=== PATIENT | female | born 1970 | race Caucasian/White ===

== ENCOUNTER 2017-11-30 13:27 | Observation (INO) | payer BC ==
--- NOTE | 2017-11-30 14:06 | ERPHSYRPT ---
- History of Present Illness Time Seen by Provider: 11/30/17 14:00 Source: patient Exam Limitations: no limitations Patient Subjective Stated Complaint: Pt states "I have kidney stones, but I have not felt well for awhile now. This morning my urine was brown, I am swelling, I am weak and I have been having a hard time breathing." Triage Nursing Assessment: Pt alert and oriented X 3, skin pwd PT ambulates with an upright steady gait, pt on her cell phone when I went to get her and she texted the whole time walking to the room. PT has pitting edema noted bilat to lower extremeties. Physician History: Pt started c/o gen. weakness, swelling, numbness of the fingers and legs few weeks ago. She noticed the brownish discoloration of her urine this morning, but denies abdominal pain, only c/o bilateral low back pain, and muscle cramps. She denies fever, vomiting, diarrhea, chest pain or cough, severe SOB, no diaphoresis or any distress, she ambulates. She has not been taking her medications recently. Timing/Duration: week(s) (3) Severity: mild Modifying Factors: Improves With: nothing Associated Symptoms: nausea, weakness (generalized) Allergies/Adverse Reactions: No Known Drug Allergies Allergy (Unverified 11/30/17 13:42) Home Medications: Meth/Meblue/Sod Phos/Psal/Hyos [Uribel Capsule] 118 mg PO DAILY 11/30/17 [ History] Hx Tetanus, Diphtheria Vaccination/Date Given: No Hx Influenza Vaccination/Date Given: No Hx Pneumococcal Vaccination/Date Given: No Immunizations Up to Date: Yes - Review of Systems Constitutional: Chills, Weakness (generalized) Abdominal/Gastrointestinal: Nausea Genitourinary Symptoms: Frequency, Hematuria Musculoskeletal: Other (muscle cramps) All Other Systems: Reviewed and Negative - Past Medical History Pertinent Past Medical History: Yes Neurological History: Migraines ENT History: No Pertinent History Cardiac History: No Pertinent History Respiratory History: Sleep Apnea Endocrine Medical History: No Pertinent History GI Medical History: GERD History: Other Other Medical History: kidney stones - Past Surgical History Past Surgical History: Yes Other Surgical History: back surgery - Social History Smoking Status: Never smoker Exposure to second hand smoke: Yes Drug Use: none Patient Lives Alone: Yes - Female History Hx Last Menstrual Period: tubal X 2 Hx Now: No - Nursing Vital Signs Nursing Vital Signs: Initial Vital Signs Temperature 97.3 F 11/30/17 13:32 Pulse Rate 76 11/30/17 13:32 Respiratory Rate 18 11/30/17 13:32 Blood Pressure 168/105 11/30/17 13:32 O2 Sat by Pulse Oximetry 95 11/30/17 13:32 Pain Scale Pain Intensity 8 - Physical Exam General Appearance: no apparent distress Eye Exam: PERRL/EOMI, eyes nml inspection Ears, Nose, Throat Exam: normal ENT inspection, pharynx normal Neck Exam: normal inspection, non-tender, supple, No carotid bruit, No JVD, No lymphadenopathy Respiratory Exam: normal breath sounds, lungs clear, airway intact, No chest tenderness Cardiovascular Exam: regular rate/rhythm, normal heart sounds, normal peripheral pulses, edema, No murmur Gastrointestinal/Abdomen Exam: soft, normal bowel sounds, No tenderness, No distention, No mass, No guarding, No rebound Back Exam: normal inspection, CVA tenderness (bilateral) Extremity Exam: normal inspection, pedal edema, No calf tenderness, No kings's sign Neurologic Exam: alert, oriented x 3, normal mood/affect Skin Exam: normal color, warm, dry, No rash Lymphatic Exam: No adenopathy SpO2 Interpretation: normal SpO2: 95 Oxygen Delivery: Room Air - Course Nursing assessment & vital signs reviewed: Yes EKG Interpreted by Me: RATE (49/min), Sinus Hilario, NORMAL AXIS, Non-specific ST Changes, Other (low voltage) - Radiology Exams Chest X-ray Interpretation: Interpreted by me, Negative - CT Exams Abdomen/Pelvis CT Interpretation: Tele-radiologist Report, Other (bilateral nephrolithiasis, no o\\bstruction) Ordered Tests: Active Orders 24 hr Category Date Time Status EKG-ER Only STAT Care 11/30/17 14:00 Active IV Insertion STAT Care 11/30/17 13:57 Active ABDOMEN AND PELVIS W/0 CONTRAS [CT] Stat Exams 11/30/17 15:27 Taken CHEST 2 VIEWS (PA AND LAT) Stat Exams 11/30/17 13:58 Taken CBC W DIFF Stat Lab 11/30/17 14:35 Completed CK-Creatinine Phosphokinase Stat Lab 11/30/17 14:35 Completed CMP Stat Lab 11/30/17 14:35 Completed CULTURE,URINE Stat Lab 11/30/17 14:35 Received Lactic Acid Stat Lab 11/30/17 14:38 Completed MAGNESIUM Stat Lab 11/30/17 14:35 Completed NT PRO BNP Stat Lab 11/30/17 14:35 Completed PROTIME WITH INR Stat Lab 11/30/17 14:35 Completed TROPONIN Q3H Lab 11/30/17 14:35 Completed TROPONIN Q3H Lab 11/30/17 17:00 Ordered TROPONIN Q3H Lab 11/30/17 20:00 Ordered TROPONIN Q3H Lab 11/30/17 23:00 Ordered TROPONIN Q3H Lab 12/01/17 02:00 Ordered TSH, 3RD Generation Routine Lab 11/30/17 14:35 Completed UA W/ MICROSCOPIC Stat Lab 11/30/17 14:35 Completed Urine Triage Profile Stat Lab 11/30/17 14:35 Completed Medication Summary Generic Name Dose Route Start Last Admin Trade Name Freq PRN Reason Stop Dose Admin Sodium Chloride 1,000 mls @ 100 mls/hr 11/30/17 16:45 11/30/17 16:50 Sodium Chloride 0.9% 1000 Ml IV 12/30/17 16:44 100 mls/hr .Q10H NAVID Administration Ceftriaxone Sodium/Dextrose 1 g in 50 mls @ 100 mls/hr 11/30/17 16:41 16:51 Rocephin 1 Gm-D5w 50 Ml Bag IV 11/30/17 17:10 100 mls/hr STAT STA 100 mls/hr Administration Discontinued Medications Generic Name Dose Route Start Last Admin Trade Name Freq PRN Reason Stop Dose Admin Ceftriaxone Sodium/Dextrose Confirm 11/30/17 16:47 Rocephin 1 Gm-D5w 50 Ml Bag Administered 11/30/17 16:48 Dose 1 g in 50 mls @ ud IV .STK-MED ONE Lab/Rad Data: Laboratory Result Diagrams 11/30/17 14:35 11/30/17 14:35 Laboratory Results 11/30/17 11/30/17 11/30/17 Range/Units 14:38 14:35 14:35 WBC (4.0-10.5) K/mm3 RBC (4.1-5.4) M/mm3 Hgb (12.0-16.0) gm/dl Hct (35-47) % MCV (78-100) fl MCH (26-32) pg MCHC (32-36) g/dl RDW (11.5-14.0) % Plt Count (150-450) K/mm3 MPV (6-9.5) fl Gran % (36.0-66.0) % Eos # (Auto) (0-0.5) Absolute Lymphs (auto) (1.0-4.6) Absolute Monos (auto) (0.0-1.3) Lymphocytes % (24.0-44.0) % Monocytes % (0.0-12.0) % Eosinophils % (0.00-5.0) % Basophils % (0.0-0.4) % Absolute Granulocytes (1.4-6.9) Basophils # (0-0.4) PT (9.95-12.35) SECONDS INR (0.8-3.0) Sodium (137-145) mmol/L Potassium (3.5-5.1) mmol/L Chloride (98-107) mmol/L Carbon Dioxide (22-30) mmol/L Anion Gap (5-15) MEQ/L BUN (7-17) mg/dL Creatinine (0.52-1.04) mg/dL Estimated GFR ML/MIN Glucose (74-106) mg/dL Lactic Acid 1.3 (0.4-2.0) Calcium (8.4-10.2) mg/dL Magnesium (1.6-2.3) mg/dL Total Bilirubin (0.2-1.3) mg/dL AST (14-36) U/L ALT (0-35) U/L Alkaline Phosphatase (38-126) U/L Creatine Kinase (30-135) U/L Troponin I (0.000-0.034) ng/mL NT-Pro-B Natriuret Pep (0-450) pg/mL Serum Total Protein (6.3-8.2) g/dL Albumin (3.5-5.0) g/dL TSH 3rd Generation (0.47-4.68) mIU/L Ur Collection Type CCMS Urine Color RED (YELLOW) Urine Appearance CLOUDY (CLEAR) Urine pH 6.0 (5-6) Ur Specific Sagle 1.020 (1.005-1.025) Urine Protein 100 (Negative) Urine Ketones NEGATIVE (NEGATIVE) Urine Blood 250 (0-5) Carlos/ul Urine Nitrite NEGATIVE (NEGATIVE) Urine Bilirubin NEGATIVE (NEGATIVE) Urine Urobilinogen NORMAL (0-1) mg/dL Ur Leukocyte Esterase 2+ (NEGATIVE) Urine Microscopic RBC >100 (0-2) /HPF Urine Microscopic WBC 50-100 (0-5) /HPF Ur Epithelial Cells MODERATE (FEW) /HPF Urine Bacteria MANY (NEGATIVE) /HPF Urine Culture Reflexed YES (NO) Urine Glucose NEGATIVE (NEGATIVE) mg/dL Urine Opiates Level NEGATIVE (NEGATIVE) Ur Methadone NEGATIVE (NEGATIVE) Urine Barbiturates NEGATIVE (NEGATIVE) Ur Phencyclidine (PCP) NEGATIVE (NEGATIVE) Urine Amphetamine NEGATIVE (NEGATIVE) U Benzodiazepine Level NEGATIVE (NEGATIVE) Urine Cocaine NEGATIVE (NEGATIVE) Urine Marijuana (THC) POSITIVE (NEGATIVE) Specimen Received 1405 11/30/17 11/30/17 11/30/17 11/30/17 Range/Units 14:35 14:35 14:35 WBC (4.0-10.5) K/mm3 RBC (4.1-5.4) M/mm3 Hgb (12.0-16.0) gm/dl Hct (35-47) % MCV (78-100) fl MCH (26-32) pg MCHC (32-36) g/dl RDW (11.5-14.0) % Plt Count (150-450) K/mm3 MPV (6-9.5) fl Gran % (36.0-66.0) % Eos # (Auto) (0-0.5) Absolute Lymphs (auto) (1.0-4.6) Absolute Monos (auto) (0.0-1.3) Lymphocytes % (24.0-44.0) % Monocytes % (0.0-12.0) % Eosinophils % (0.00-5.0) % Basophils % (0.0-0.4) % Absolute Granulocytes (1.4-6.9) Basophils # (0-0.4) PT 10.8 (9.95-12.35) SECONDS INR 0.93 (0.8-3.0) Sodium 139 (137-145) mmol/L Potassium 3.7 (3.5-5.1) mmol/L Chloride 98 (98-107) mmol/L Carbon Dioxide 29 (22-30) mmol/L Anion Gap 15.0 (5-15) MEQ/L BUN 23 H (7-17) mg/dL Creatinine 1.44 H (0.52-1.04) mg/dL Estimated GFR 41.3 ML/MIN Glucose 108 H (74-106) mg/dL Lactic Acid (0.4-2.0) Calcium 9.8 (8.4-10.2) mg/dL Magnesium 2.0 (1.6-2.3) mg/dL Total Bilirubin 0.60 (0.2-1.3) mg/dL AST 62 H (14-36) U/L ALT 45 H (0-35) U/L Alkaline Phosphatase 98 (38-126) U/L Creatine Kinase 656 H (30-135) U/L Troponin I < 0.012 (0.000-0.034) ng/mL NT-Pro-B Natriuret Pep 18.0 (0-450) pg/mL Serum Total Protein 7.8 (6.3-8.2) g/dL Albumin 4.7 (3.5-5.0) g/dL TSH 3rd Generation 304.000 H (0.47-4.68) mIU/L Ur Collection Type Urine Color (YELLOW) Urine Appearance (CLEAR) Urine pH (5-6) Ur Specific Sagle (1.005-1.025) Urine Protein (Negative) Urine Ketones (NEGATIVE) Urine Blood (0-5) Carlos/ul Urine Nitrite (NEGATIVE) Urine Bilirubin (NEGATIVE) Urine Urobilinogen (0-1) mg/dL Ur Leukocyte Esterase (NEGATIVE) Urine Microscopic RBC (0-2) /HPF Urine Microscopic WBC (0-5) /HPF Ur Epithelial Cells (FEW) /HPF Urine Bacteria (NEGATIVE) /HPF Urine Culture Reflexed (NO) Urine Glucose (NEGATIVE) mg/dL Urine Opiates Level (NEGATIVE) Ur Methadone (NEGATIVE) Urine Barbiturates (NEGATIVE) Ur Phencyclidine (PCP) (NEGATIVE) Urine Amphetamine (NEGATIVE) U Benzodiazepine Level (NEGATIVE) Urine Cocaine (NEGATIVE) Urine Marijuana (THC) (NEGATIVE) Specimen Received 11/30/17 Range/Units 14:35 WBC 8.1 (4.0-10.5) K/mm3 RBC 4.27 (4.1-5.4) M/mm3 Hgb 13.6 (12.0-16.0) gm/dl Hct 40.4 (35-47) % MCV 94.6 (78-100) fl MCH 31.9 (26-32) pg MCHC 33.7 (32-36) g/dl RDW 15.1 H (11.5-14.0) % Plt Count 281 (150-450) K/mm3 MPV 10.7 H (6-9.5) fl Gran % 66.6 H (36.0-66.0) % Eos # (Auto) 0.22 (0-0.5) Absolute Lymphs (auto) 1.94 (1.0-4.6) Absolute Monos (auto) 0.51 (0.0-1.3) Lymphocytes % 24.0 (24.0-44.0) % Monocytes % 6.3 (0.0-12.0) % Eosinophils % 2.7 (0.00-5.0) % Basophils % 0.4 (0.0-0.4) % Absolute Granulocytes 5.38 (1.4-6.9) Basophils # 0.03 (0-0.4) PT (9.95-12.35) SECONDS INR (0.8-3.0) Sodium (137-145) mmol/L Potassium (3.5-5.1) mmol/L Chloride (98-107) mmol/L Carbon Dioxide (22-30) mmol/L Anion Gap (5-15) MEQ/L BUN (7-17) mg/dL Creatinine (0.52-1.04) mg/dL Estimated GFR ML/MIN Glucose (74-106) mg/dL Lactic Acid (0.4-2.0) Calcium (8.4-10.2) mg/dL Magnesium (1.6-2.3) mg/dL Total Bilirubin (0.2-1.3) mg/dL AST (14-36) U/L ALT (0-35) U/L Alkaline Phosphatase (38-126) U/L Creatine Kinase (30-135) U/L Troponin I (0.000-0.034) ng/mL NT-Pro-B Natriuret Pep (0-450) pg/mL Serum Total Protein (6.3-8.2) g/dL Albumin (3.5-5.0) g/dL TSH 3rd Generation (0.47-4.68) mIU/L Ur Collection Type Urine Color (YELLOW) Urine Appearance (CLEAR) Urine pH (5-6) Ur Specific Sagle (1.005-1.025) Urine Protein (Negative) Urine Ketones (NEGATIVE) Urine Blood (0-5) Carlos/ul Urine Nitrite (NEGATIVE) Urine Bilirubin (NEGATIVE) Urine Urobilinogen (0-1) mg/dL Ur Leukocyte Esterase (NEGATIVE) Urine Microscopic RBC (0-2) /HPF Urine Microscopic WBC (0-5) /HPF Ur Epithelial Cells (FEW) /HPF Urine Bacteria (NEGATIVE) /HPF Urine Culture Reflexed (NO) Urine Glucose (NEGATIVE) mg/dL Urine Opiates Level (NEGATIVE) Ur Methadone (NEGATIVE) Urine Barbiturates (NEGATIVE) Ur Phencyclidine (PCP) (NEGATIVE) Urine Amphetamine (NEGATIVE) U Benzodiazepine Level (NEGATIVE) Urine Cocaine (NEGATIVE) Urine Marijuana (THC) (NEGATIVE) Specimen Received - Progress Progress: improved Progress Note: 11/30/17 17:02 Pt was started on iv saline, Rocephine, we called Dr Moody, covering Dr Jones, discussed our results and this patient's current condition, he agreed to admit her to Medicine for further care, I informed patient, she agreed. Discussed with .: Diamond Will see patient in: hospital (observation) Counseled pt/family regarding: lab results, diagnosis, need for follow-up, rad results - Departure Time of Disposition: 17:03 Departure Disposition: Observation Clinical Impression: Dehydration UTI (urinary tract infection) Qualifiers: Urinary tract infection type: site unspecified Hematuria presence: with hematuria Qualified Code(s): N39.0 - Urinary tract infection, site not specified ; R31.9 - Hematuria, unspecified Hypothyroidism Qualifiers: Hypothyroidism type: other Qualified Code(s): E03.8 - Other specified hypothyroidism Condition: Stable Critical Care Time: No Referrals: LORETTA JONES [Primary Care Provider] -
[2017-11-30 14:51] LABS: BASOPHIL % 0.4 % (0.0-0.4); Basophil (Absolute #) 0.03 (0-0.4); Eosinophil % 2.7 % (0.00-5.0); Eosinophil (Absolute #) 0.22 (0-0.5); Granulocyte Absolute (ANC) 5.38 (1.4-6.9); Granulocytes % 66.6 % (36.0-66.0); Hematocrit 40.4 % (35-47); Hemoglobin 13.6 gm/dl (12.0-16.0); INR 0.93 (0.8-3.0); Lymphocyte (Absolute #) 1.94 (1.0-4.6); Mean Cell Volume 94.6 fl (78-100); Mean Corpuscular Hemoglobin 31.9 pg (26-32); Mean Corpuscular Hgb Concent. 33.7 g/dl (32-36); Mean Platelet Volume 10.7 fl (6-9.5); Monocyte (Absolute #) 0.51 (0.0-1.3); Monocytes % 6.3 % (0.0-12.0); Platelet Count 281 K/mm3 (150-450); Red Blood Count 4.27 M/mm3 (4.1-5.4); Red Cell Distribution Width 15.1 % (11.5-14.0); White Blood Count 8.1 K/mm3 (4.0-10.5)
[2017-11-30 14:52] LABS: Appearance CLOUDY (CLEAR); Bilirubin NEGATIVE (NEGATIVE); Blood 250 Ery/ul (0-5); Glucose NEGATIVE (NEGATIVE); Ketones NEGATIVE (NEGATIVE); Leukocyte Esterase 2+ (NEGATIVE); Nitrite NEGATIVE (NEGATIVE); Protein,Urine Dip 100 (Negative); Urobilinogen NORMAL mg/dL (0-1)
[2017-11-30 14:56] LABS: ALBUMIN 4.7 g/dL (3.5-5.0); BILIRUBIN,TOTAL 0.6 mg/dL (0.2-1.3); Calcium 9.8 mg/dL (8.4-10.2); Creatinine 1 1.44 mg/dL (0.52-1.04); Potassium 3.7 mmol/L (3.5-5.1); Total Protein 7.8 g/dL (6.3-8.2)
[2017-11-30 15:29] LABS: Amphetamine,Urine NEGATIVE (NEGATIVE); Barbiturate,Urine NEGATIVE (NEGATIVE); Benzodiazepine,Urine NEGATIVE (NEGATIVE); Cocaine,Urine NEGATIVE (NEGATIVE); Methadone,Urine NEGATIVE (NEGATIVE); Opiate,Urine NEGATIVE (NEGATIVE); PCP,Urine NEGATIVE (NEGATIVE); THC,Urine POSITIVE (NEGATIVE)
[2017-11-30 15:40] LABS: TROPONIN < 0.012 ng/mL (0.000-0.034)
[2017-11-30 15:51] LABS: WBC 50-100 /HPF (0-5)
[2017-11-30 15:52] LABS: Bacteria MANY /HPF (NEGATIVE); Epithelial Cells MODERATE /HPF (FEW); RBC >100 /HPF (0-2)
[2017-11-30] MEDS ORDERED: ROCEPHIN 1 Gm-D5w 50 ml Bag** 1 G/50 ML IVPB IV STA (16:41)
[2017-11-30] MEDS ORDERED: ROCEPHIN 1 Gm-D5w 50 ml Bag** 1 G/50 ML IVPB IV ONE (16:47)
[2017-11-30] MEDS: Sodium Chloride 0.9% 1000 ML 1,000 ML IV SCH (16:50)
[2017-11-30] MEDS ORDERED: Zofran 4 MG/2 ML VIAL IV PRN (17:06)
[2017-11-30] MEDS ORDERED: DUONEB 0.5-3 MG/3 ml Neb IH PRN (17:06)
[2017-11-30] MEDS ORDERED: NovoLOG Insulin SQ PRN (17:06)
[2017-11-30] MEDS ORDERED: ULTRAM 50 MG PO ONE (17:08)
[2017-11-30] MEDS ORDERED: Sodium Chloride 0.9% 1000 ML 1,000 ML IV SCH (17:15)
[2017-11-30] MEDS ORDERED: ULTRAM 50 MG ONE (17:36)
--- NOTE | 2017-11-30 21:49 | XRAY ---
Indication: Bilateral flank pain and hematuria. Multiple contiguous axial images obtained through the abdomen and pelvis without contrast as ordered. Comparison: January 04, 2017. Lung bases demonstrate minimal bibasilar dependent atelectasis. No infiltrate or effusion. Heart is not enlarged. Noncontrasted stomach and bowel loops appear nonobstructed. Normal appendix. No free fluid/air. There is now mild diffuse scattered colonic fecal debris throughout. Again descending and sigmoid diverticulosis without diverticulitis. Again diffuse fatty liver, nonobstructing bilateral nephrocalcinosis, and calcified splenic granulomas. Remaining liver, gallbladder, pancreas, spleen, adrenal glands, kidneys, ureters, bladder, uterus, and aorta appear unremarkable for noncontrast exam. Osseous structures intact. Impression: 1. New fecal stasis without obstruction. Stable colonic diverticulosis. 2. Stable fatty liver and nonobstructing bilateral nephrocalcinosis. Comment: Preliminary interpretation was made by C. No critical discrepancy. CTDI 23.68
--- NOTE | 2017-11-30 21:51 | XRAY ---
Indication: Short of breath. Comparison: None PA/lateral chest clear. Heart and mediastinal structures within normal limits. Bony thorax intact. Impression: Nonacute chest.
[2017-11-30] MEDS: NORCO 5/325 MG PO PRN (22:13)
[2017-11-30] MEDS: Neurontin 100 MG PO SCH (22:14)
[2017-11-30] MEDS ORDERED: SYNTHROID 50 MCG ONE (22:19)
[2017-12-01] MEDS: Sodium Chloride 0.9% 1000 ML 1,000 ML IV SCH (02:05)
[2017-12-01] MEDS: NORCO 5/325 MG PO PRN (04:10)
[2017-12-01 04:19] LABS: ANION GAP 11.5 MEQ/L (5-15); Calcium 9.3 mg/dL (8.4-10.2); Creatinine 1 1.18 mg/dL (0.52-1.04); Potassium 3.3 mmol/L (3.5-5.1)
[2017-12-01 04:35] LABS: BASOPHIL % 0.3 % (0.0-0.4); Basophil (Absolute #) 0.03 (0-0.4); Eosinophil % 3.2 % (0.00-5.0); Eosinophil (Absolute #) 0.28 (0-0.5); Granulocyte Absolute (ANC) 5.62 (1.4-6.9); Granulocytes % 63.9 % (36.0-66.0); Hematocrit 40.2 % (35-47); Hemoglobin 13.2 gm/dl (12.0-16.0); Lymphocytes % 27.3 % (24.0-44.0); Mean Cell Volume 95.9 fl (78-100); Mean Corpuscular Hemoglobin 31.5 pg (26-32); Mean Corpuscular Hgb Concent. 32.8 g/dl (32-36); Mean Platelet Volume 11.2 fl (6-9.5); Monocyte (Absolute #) 0.47 (0.0-1.3); Monocytes % 5.3 % (0.0-12.0); Platelet Count 170 K/mm3 (150-450); Red Blood Count 4.19 M/mm3 (4.1-5.4); Red Cell Distribution Width 15.2 % (11.5-14.0); White Blood Count 8.8 K/mm3 (4.0-10.5)
[2017-12-01 07:58] VITALS: BP 144/73; PULSE 61; O2SAT 97
--- NOTE | 2017-12-01 09:05 | PCM.DCORD ---
- Discharge Discharge Date: 12/01/17 Disposition: Home, Self-Care Condition: Stable Prescriptions: New Cephalexin Mh 500 mg [Keflex 500 mg] 500 mg PO TID #30 capsule Levothyroxine Sodium 75 Mcg [Synthroid 75 Mcg] 75 mcg PO DAILY #30 tablet Continue Meth/Meblue/Sod Phos/Psal/Hyos [Uribel Capsule] 118 mg PO DAILY Follow up with: LORETTA JONES [Primary Care Provider] - 1 Week
--- NOTE | 2017-12-01 09:10 | PCM.HP ---
History of Present Illness - Chief Complaint Chief Complaint: UTI Date: 12/01/17 History of Present Illness: is a 47 year old female. with history of hypothyroidism and recurrent kidney stones. She had UTI 3 months ago and was treated at urgent [place]. She was out of state again on vacation and driving home 2 days ago and noticed increased pain with urination and dark colored urine. 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 She had also stopped her thyroid medication about 2 months ago after stopping all her other medications as well. She was initially feeling ok but has now started to have increased swelling over the last several weeks. She had been on thyroid medication since having children more then 20 years ago. - Review of Systems Constitutional: Fatigue, No Fever, No Chills Eyes: No Symptoms Ears, Nose, & Throat: No Symptoms Respiratory: Short Of Breath, No Cough Cardiac: Edema, No Chest Pain, No Syncope Abdominal/Gastrointestinal: No Abdominal Pain, No Nausea, No Vomiting, No Diarrhea Genitourinary Symptoms: Dysuria, Frequency Musculoskeletal: No Back Pain, No Neck Pain Skin: No Rash Neurological: No Dizziness, No Focal Weakness, No Sensory Changes Psychological: No Symptoms Endocrine: No Symptoms Hematologic/Lymphatic: No Symptoms Immunological/Allergic: No Symptoms Medications & Allergies Home Medications: Home Medication List Meth/Meblue/Sod Phos/Psal/Hyos [Uribel Capsule] 118 mg PO DAILY 11/30/17 [ History Confirmed 11/30/17] Cephalexin Mh 500 mg [Keflex 500 mg] 500 mg PO TID #30 capsule 12/01/17 [Rx] Levothyroxine Sodium 75 Mcg [Synthroid 75 Mcg] 75 mcg PO DAILY #30 tablet 12/01/17 [Rx] Allergies/Adverse Reactions: Allergies Allergy/AdvReac Type Severity Reaction Status Date / Time No Known Drug Allergies Allergy Unverified 11/30/17 13:42 - Past Medical History Past Medical History: Yes Neurological History: Migraines ENT History: No Pertinent History Cardiac History: No Pertinent History Respiratory History: Sleep Apnea Endocrine Medical History: No Pertinent History GI Medical History: GERD History: Other Pyscho-Social History: Depression Comment: kidney stones,gout - Female History Hx Last Menstrual Period: tubal X 2 Are you now?: No - Past Surgical History Past Surgical History: Yes Female Surgical History: Tubal Ligation Other Surgical History: back surgery, kidney stone removal x 3, oopharectomy - Social History Smoking Status: Never smoker Exposure to second hand smoke: Yes Alcohol: None Drug Use: none - Physical Exam Vital Signs: Vital Signs - 24 hr Temp Pulse Resp BP Pulse Ox 12/01/17 07:58 97.6 F 61 18 144/73 97 12/01/17 04:00 98.0 F 67 20 137/75 95 11/30/17 23:42 97.9 F 56 L 16 142/71 95 11/30/17 19:56 58 L 18 96 11/30/17 19:47 97.3 F 56 L 18 131/102 96 11/30/17 18:02 97.3 F 56 L 18 131/102 96 11/30/17 18:00 97.8 F 64 18 196/97 99 11/30/17 17:53 97.8 F 64 18 196/97 99 11/30/17 17:30 56 L 18 96 11/30/17 17:06 95 11/30/17 16:56 58 L 16 131/102 98 11/30/17 15:50 66 20 133/99 96 11/30/17 14:54 61 16 121/83 97 11/30/17 13:32 97.3 F 76 18 168/105 95 General Appearance: no apparent distress, alert, obese Neurologic Exam: alert, oriented x 3, cooperative, normal mood/affect, nml cerebellar function, sensation nml, No motor deficits Eye Exam: PERRL/EOMI, eyes nml inspection Ears, Nose, Throat Exam: normal ENT inspection, pharynx normal, moist mucous membranes Neck Exam: normal inspection, non-tender, supple, full range of motion Respiratory Exam: normal breath sounds, lungs clear, No respiratory distress Cardiovascular Exam: regular rate/rhythm, normal heart sounds, normal peripheral pulses Gastrointestinal/Abdomen Exam: soft, normal bowel sounds, No tenderness, No mass Back Exam: normal inspection, normal range of motion, other (paraspinal muscle tenderness without specific flank tenderness), No CVA tenderness, No vertebral tenderness Extremity Exam: normal inspection, normal range of motion, pelvis stable Skin Exam: normal color, warm, dry, No rash Lymphatic Exam: No adenopathy Results - Labs Lab/Micro Results: Accuchecks Date 12/01/17 Date 11/30/17 Time 07:30 Time 21:30 Accucheck Value: 136 Accucheck Value: 159 Lab Results-Last 24 Hours 11/30/17 11/30/17 11/30/17 Range/Units 14:35 14:35 14:35 WBC 8.1 (4.0-10.5) K/mm3 RBC 4.27 (4.1-5.4) M/mm3 Hgb 13.6 (12.0-16.0) gm/dl Hct 40.4 (35-47) % MCV 94.6 (78-100) fl MCH 31.9 (26-32) pg MCHC 33.7 (32-36) g/dl RDW 15.1 H (11.5-14.0) % Plt Count 281 (150-450) K/mm3 MPV 10.7 H (6-9.5) fl Gran % 66.6 H (36.0-66.0) % Eos # (Auto) 0.22 (0-0.5) Absolute Lymphs (auto) 1.94 (1.0-4.6) Absolute Monos (auto) 0.51 (0.0-1.3) Lymphocytes % 24.0 (24.0-44.0) % Monocytes % 6.3 (0.0-12.0) % Eosinophils % 2.7 (0.00-5.0) % Basophils % 0.4 (0.0-0.4) % Absolute Granulocytes 5.38 (1.4-6.9) Basophils # 0.03 (0-0.4) PT 10.8 (9.95-12.35) SECONDS INR 0.93 (0.8-3.0) Sodium 139 (137-145) mmol/L Potassium 3.7 (3.5-5.1) mmol/L Chloride 98 (98-107) mmol/L Carbon Dioxide 29 (22-30) mmol/L Anion Gap 15.0 (5-15) MEQ/L BUN 23 H (7-17) mg/dL Creatinine 1.44 H (0.52-1.04) mg/dL Estimated GFR 41.3 ML/MIN Glucose 108 H (74-106) mg/dL Lactic Acid (0.4-2.0) Calcium 9.8 (8.4-10.2) mg/dL Magnesium 2.0 (1.6-2.3) mg/dL Total Bilirubin 0.60 (0.2-1.3) mg/dL AST 62 H (14-36) U/L ALT 45 H (0-35) U/L Alkaline Phosphatase 98 (38-126) U/L Creatine Kinase 656 H (30-135) U/L Troponin I (0.000-0.034) ng/mL NT-Pro-B Natriuret Pep 18.0 (0-450) pg/mL Serum Total Protein 7.8 (6.3-8.2) g/dL Albumin 4.7 (3.5-5.0) g/dL TSH 3rd Generation (0.47-4.68) mIU/L Ur Collection Type Urine Color (YELLOW) Urine Appearance (CLEAR) Urine pH (5-6) Ur Specific Gerry (1.005-1.025) Urine Protein (Negative) Urine Ketones (NEGATIVE) Urine Blood (0-5) Carlos/ul Urine Nitrite (NEGATIVE) Urine Bilirubin (NEGATIVE) Urine Urobilinogen (0-1) mg/dL Ur Leukocyte Esterase (NEGATIVE) Urine Microscopic RBC (0-2) /HPF Urine Microscopic WBC (0-5) /HPF Ur Epithelial Cells (FEW) /HPF Urine Bacteria (NEGATIVE) /HPF Urine Culture Reflexed (NO) Urine Glucose (NEGATIVE) mg/dL Urine Opiates Level (NEGATIVE) Ur Methadone (NEGATIVE) Urine Barbiturates (NEGATIVE) Ur Phencyclidine (PCP) (NEGATIVE) Urine Amphetamine (NEGATIVE) U Benzodiazepine Level (NEGATIVE) Urine Cocaine (NEGATIVE) Urine Marijuana (THC) (NEGATIVE) Specimen Received 11/30/17 11/30/17 11/30/17 Range/Units 14:35 14:35 14:35 WBC (4.0-10.5) K/mm3 RBC (4.1-5.4) M/mm3 Hgb (12.0-16.0) gm/dl Hct (35-47) % MCV (78-100) fl MCH (26-32) pg MCHC (32-36) g/dl RDW (11.5-14.0) % Plt Count (150-450) K/mm3 MPV (6-9.5) fl Gran % (36.0-66.0) % Eos # (Auto) (0-0.5) Absolute Lymphs (auto) (1.0-4.6) Absolute Monos (auto) (0.0-1.3) Lymphocytes % (24.0-44.0) % Monocytes % (0.0-12.0) % Eosinophils % (0.00-5.0) % Basophils % (0.0-0.4) % Absolute Granulocytes (1.4-6.9) Basophils # (0-0.4) PT (9.95-12.35) SECONDS INR (0.8-3.0) Sodium (137-145) mmol/L Potassium (3.5-5.1) mmol/L Chloride (98-107) mmol/L Carbon Dioxide (22-30) mmol/L Anion Gap (5-15) MEQ/L BUN (7-17) mg/dL Creatinine (0.52-1.04) mg/dL Estimated GFR ML/MIN Glucose (74-106) mg/dL Lactic Acid (0.4-2.0) Calcium (8.4-10.2) mg/dL Magnesium (1.6-2.3) mg/dL Total Bilirubin (0.2-1.3) mg/dL AST (14-36) U/L ALT (0-35) U/L Alkaline Phosphatase (38-126) U/L Creatine Kinase (30-135) U/L Troponin I < 0.012 (0.000-0.034) ng/mL NT-Pro-B Natriuret Pep (0-450) pg/mL Serum Total Protein (6.3-8.2) g/dL Albumin (3.5-5.0) g/dL TSH 3rd Generation 304.000 H (0.47-4.68) mIU/L Ur Collection Type CCMS Urine Color RED (YELLOW) Urine Appearance CLOUDY (CLEAR) Urine pH 6.0 (5-6) Ur Specific Gerry 1.020 (1.005-1.025) Urine Protein 100 (Negative) Urine Ketones NEGATIVE (NEGATIVE) Urine Blood 250 (0-5) Carlos/ul Urine Nitrite NEGATIVE (NEGATIVE) Urine Bilirubin NEGATIVE (NEGATIVE) Urine Urobilinogen NORMAL (0-1) mg/dL Ur Leukocyte Esterase 2+ (NEGATIVE) Urine Microscopic RBC >100 (0-2) /HPF Urine Microscopic WBC 50-100 (0-5) /HPF Ur Epithelial Cells MODERATE (FEW) /HPF Urine Bacteria MANY (NEGATIVE) /HPF Urine Culture Reflexed YES (NO) Urine Glucose NEGATIVE (NEGATIVE) mg/dL Urine Opiates Level NEGATIVE (NEGATIVE) Ur Methadone NEGATIVE (NEGATIVE) Urine Barbiturates NEGATIVE (NEGATIVE) Ur Phencyclidine (PCP) NEGATIVE (NEGATIVE) Urine Amphetamine NEGATIVE (NEGATIVE) U Benzodiazepine Level NEGATIVE (NEGATIVE) Urine Cocaine NEGATIVE (NEGATIVE) Urine Marijuana (THC) POSITIVE (NEGATIVE) Specimen Received [id number] 11/30/17 11/30/17 11/30/17 11/30/17 Range/Units 14:38 17:17 20:38 WBC (4.0-10.5) K/mm3 RBC (4.1-5.4) M/mm3 Hgb (12.0-16.0) gm/dl Hct (35-47) % MCV (78-100) fl MCH (26-32) pg MCHC (32-36) g/dl RDW (11.5-14.0) % Plt Count (150-450) K/mm3 MPV (6-9.5) fl Gran % (36.0-66.0) % Eos # (Auto) (0-0.5) Absolute Lymphs (auto) (1.0-4.6) Absolute Monos (auto) (0.0-1.3) Lymphocytes % (24.0-44.0) % Monocytes % (0.0-12.0) % Eosinophils % (0.00-5.0) % Basophils % (0.0-0.4) % Absolute Granulocytes (1.4-6.9) Basophils # (0-0.4) PT (9.95-12.35) SECONDS INR (0.8-3.0) Sodium (137-145) mmol/L Potassium (3.5-5.1) mmol/L Chloride (98-107) mmol/L Carbon Dioxide (22-30) mmol/L Anion Gap (5-15) MEQ/L BUN (7-17) mg/dL Creatinine (0.52-1.04) mg/dL Estimated GFR ML/MIN Glucose (74-106) mg/dL Lactic Acid 1.3 (0.4-2.0) Calcium (8.4-10.2) mg/dL Magnesium (1.6-2.3) mg/dL Total Bilirubin (0.2-1.3) mg/dL AST (14-36) U/L ALT (0-35) U/L Alkaline Phosphatase (38-126) U/L Creatine Kinase (30-135) U/L Troponin I < 0.012 < 0.012 (0.000-0.034) ng/mL NT-Pro-B Natriuret Pep (0-450) pg/mL Serum Total Protein (6.3-8.2) g/dL Albumin (3.5-5.0) g/dL TSH 3rd Generation (0.47-4.68) mIU/L Ur Collection Type Urine Color (YELLOW) Urine Appearance (CLEAR) Urine pH (5-6) Ur Specific Gerry (1.005-1.025) Urine Protein (Negative) Urine Ketones (NEGATIVE) Urine Blood (0-5) Carlos/ul Urine Nitrite (NEGATIVE) Urine Bilirubin (NEGATIVE) Urine Urobilinogen (0-1) mg/dL Ur Leukocyte Esterase (NEGATIVE) Urine Microscopic RBC (0-2) /HPF Urine Microscopic WBC (0-5) /HPF Ur Epithelial Cells (FEW) /HPF Urine Bacteria (NEGATIVE) /HPF Urine Culture Reflexed (NO) Urine Glucose (NEGATIVE) mg/dL Urine Opiates Level (NEGATIVE) Ur Methadone (NEGATIVE) Urine Barbiturates (NEGATIVE) Ur Phencyclidine (PCP) (NEGATIVE) Urine Amphetamine (NEGATIVE) U Benzodiazepine Level (NEGATIVE) Urine Cocaine (NEGATIVE) Urine Marijuana (THC) (NEGATIVE) Specimen Received 11/30/17 12/01/17 12/01/17 Range/Units 23:32 03:46 03:46 WBC 8.8 (4.0-10.5) K/mm3 RBC 4.19 (4.1-5.4) M/mm3 Hgb 13.2 (12.0-16.0) gm/dl Hct 40.2 (35-47) % MCV 95.9 (78-100) fl MCH 31.5 (26-32) pg MCHC 32.8 (32-36) g/dl RDW 15.2 H (11.5-14.0) % Plt Count 170 (150-450) K/mm3 MPV 11.2 H (6-9.5) fl Gran % 63.9 (36.0-66.0) % Eos # (Auto) 0.28 (0-0.5) Absolute Lymphs (auto) 2.40 (1.0-4.6) Absolute Monos (auto) 0.47 (0.0-1.3) Lymphocytes % 27.3 (24.0-44.0) % Monocytes % 5.3 (0.0-12.0) % Eosinophils % 3.2 (0.00-5.0) % Basophils % 0.3 (0.0-0.4) % Absolute Granulocytes 5.62 (1.4-6.9) Basophils # 0.03 (0-0.4) PT (9.95-12.35) SECONDS INR (0.8-3.0) Sodium (137-145) mmol/L Potassium (3.5-5.1) mmol/L Chloride (98-107) mmol/L Carbon Dioxide (22-30) mmol/L Anion Gap (5-15) MEQ/L BUN (7-17) mg/dL Creatinine (0.52-1.04) mg/dL Estimated GFR ML/MIN Glucose (74-106) mg/dL Lactic Acid (0.4-2.0) Calcium (8.4-10.2) mg/dL Magnesium (1.6-2.3) mg/dL Total Bilirubin (0.2-1.3) mg/dL AST (14-36) U/L ALT (0-35) U/L Alkaline Phosphatase (38-126) U/L Creatine Kinase (30-135) U/L Troponin I < 0.012 < 0.012 (0.000-0.034) ng/mL NT-Pro-B Natriuret Pep (0-450) pg/mL Serum Total Protein (6.3-8.2) g/dL Albumin (3.5-5.0) g/dL TSH 3rd Generation (0.47-4.68) mIU/L Ur Collection Type Urine Color (YELLOW) Urine Appearance (CLEAR) Urine pH (5-6) Ur Specific Gerry (1.005-1.025) Urine Protein (Negative) Urine Ketones (NEGATIVE) Urine Blood (0-5) Carlos/ul Urine Nitrite (NEGATIVE) Urine Bilirubin (NEGATIVE) Urine Urobilinogen (0-1) mg/dL Ur Leukocyte Esterase (NEGATIVE) Urine Microscopic RBC (0-2) /HPF Urine Microscopic WBC (0-5) /HPF Ur Epithelial Cells (FEW) /HPF Urine Bacteria (NEGATIVE) /HPF Urine Culture Reflexed (NO) Urine Glucose (NEGATIVE) mg/dL Urine Opiates Level (NEGATIVE) Ur Methadone (NEGATIVE) Urine Barbiturates (NEGATIVE) Ur Phencyclidine (PCP) (NEGATIVE) Urine Amphetamine (NEGATIVE) U Benzodiazepine Level (NEGATIVE) Urine Cocaine (NEGATIVE) Urine Marijuana (THC) (NEGATIVE) Specimen Received 12/01/17 Range/Units 03:46 WBC (4.0-10.5) K/mm3 RBC (4.1-5.4) M/mm3 Hgb (12.0-16.0) gm/dl Hct (35-47) % MCV (78-100) fl MCH (26-32) pg MCHC (32-36) g/dl RDW (11.5-14.0) % Plt Count (150-450) K/mm3 MPV (6-9.5) fl Gran % (36.0-66.0) % Eos # (Auto) (0-0.5) Absolute Lymphs (auto) (1.0-4.6) Absolute Monos (auto) (0.0-1.3) Lymphocytes % (24.0-44.0) % Monocytes % (0.0-12.0) % Eosinophils % (0.00-5.0) % Basophils % (0.0-0.4) % Absolute Granulocytes (1.4-6.9) Basophils # (0-0.4) PT (9.95-12.35) SECONDS INR (0.8-3.0) Sodium 139 (137-145) mmol/L Potassium 3.3 L (3.5-5.1) mmol/L Chloride 102 (98-107) mmol/L Carbon Dioxide 29 (22-30) mmol/L Anion Gap 11.5 (5-15) MEQ/L BUN 21 H (7-17) mg/dL Creatinine 1.18 H (0.52-1.04) mg/dL Estimated GFR 52.0 ML/MIN Glucose 100 (74-106) mg/dL Lactic Acid (0.4-2.0) Calcium 9.3 (8.4-10.2) mg/dL Magnesium (1.6-2.3) mg/dL Total Bilirubin (0.2-1.3) mg/dL AST (14-36) U/L ALT (0-35) U/L Alkaline Phosphatase (38-126) U/L Creatine Kinase (30-135) U/L Troponin I (0.000-0.034) ng/mL NT-Pro-B Natriuret Pep (0-450) pg/mL Serum Total Protein (6.3-8.2) g/dL Albumin (3.5-5.0) g/dL TSH 3rd Generation (0.47-4.68) mIU/L Ur Collection Type Urine Color (YELLOW) Urine Appearance (CLEAR) Urine pH (5-6) Ur Specific Gerry (1.005-1.025) Urine Protein (Negative) Urine Ketones (NEGATIVE) Urine Blood (0-5) Carlos/ul Urine Nitrite (NEGATIVE) Urine Bilirubin (NEGATIVE) Urine Urobilinogen (0-1) mg/dL Ur Leukocyte Esterase (NEGATIVE) Urine Microscopic RBC (0-2) /HPF Urine Microscopic WBC (0-5) /HPF Ur Epithelial Cells (FEW) /HPF Urine Bacteria (NEGATIVE) /HPF Urine Culture Reflexed (NO) Urine Glucose (NEGATIVE) mg/dL Urine Opiates Level (NEGATIVE) Ur Methadone (NEGATIVE) Urine Barbiturates (NEGATIVE) Ur Phencyclidine (PCP) (NEGATIVE) Urine Amphetamine (NEGATIVE) U Benzodiazepine Level (NEGATIVE) Urine Cocaine (NEGATIVE) Urine Marijuana (THC) (NEGATIVE) Specimen Received Microbiology 11/30/17 14:35 Urine Culture - Preliminary Clean Catch Midstream GRAM NEGATIVE ID AND SENSITIVITY PENDING Accuchecks Date 12/01/17 Date 11/30/17 Time 07:30 Time 21:30 Accucheck Value: 136 Accucheck Value: 159 - Radiology Impressions Radiology Exams & Impressions: Radiology Procedures Category Date Time Status ABDOMEN AND PELVIS W/0 CONTRAS [CT] Stat Exams 11/30/17 15:27 Completed CHEST 2 VIEWS (PA AND LAT) Stat Exams 11/30/17 13:58 Completed - Other Procedures and Tests Respiratory Therapy 11/30/17 17:06 Oxygen NASAL CANNULA 2 lpm 12/01/17 07:00 neb [Respiratory Nebulizer] UD Assessment/Plan (1) UTI (urinary tract infection) Current Visit: Yes Status: Acute Qualifiers: Urinary tract infection type: site unspecified Hematuria presence: with hematuria Qualified Code(s): N39.0 - Urinary tract infection, site not specified; R31.9 - Hematuria, unspecified Assessment & Plan: improving symptoms with rehydration received rocephin ct abd and pelvis was negative for any obstructing stone and she was afebrile will treat with keflex and monitor urine culture d/c shaun etoday restart thyroid medication and recheck tsh discussed in 4 weeks and resume f/u outpatient she has not been to outpatient f/u in about 1 year. Code(s): N39.0 - URINARY TRACT INFECTION, SITE NOT SPECIFIED (2) Dehydration Current Visit: Yes Status: Acute Code(s): E86.0 - DEHYDRATION (3) Hypothyroidism Current Visit: Yes Status: Acute Qualifiers: Hypothyroidism type: other Qualified Code(s): E03.8 - Other specified hypothyroidism Code(s): E03.9 - HYPOTHYROIDISM, UNSPECIFIED
[2017-12-01] MEDS ORDERED: ROCEPHIN 1 Gm-D5w 50 ml Bag** 1 G/50 ML IVPB IV SCH (10:00)
[2017-12-01] MEDS: Neurontin 100 MG PO SCH (10:21)
[2017-12-01] MEDS ORDERED: SYNTHROID 50 MCG PO ONE (17:05)
== END 2017-12-01 10:45 | disposition home or self-care (01) ==
LOC: ED 13:27 → MED SURG 17:54
PROVIDERS: ADMIT Internal Medicine; ATTEND Internal Medicine
DX: N39.0 Urinary tract infection, site not specified (principal); E86.0 Dehydration; E03.9 Hypothyroidism, unspecified; Z87.442 Personal history of urinary calculi; G47.30 Sleep apnea, unspecified; K21.9 Gastro-esophageal reflux disease without esophagitis; F32.9 Major depressive disorder, single episode, unspecified; M10.9 Gout, unspecified
CPT/HCPCS: 36000; 36415; 71046; 74176; 80048; 80053; 80307; 81000; 82550; 83036; 83605; 83735; 83880; 84443; 84484; 85025; 85610; 87077; 87086; 87186; 93005; 94640; 94760; 96365; 99285; G0378; J0696; A9270-GY

== ENCOUNTER 2019-03-10 12:41 | Emergency (ER) | payer OTHER ==
--- NOTE | 2019-03-10 12:51 | ERPHSYRPT ---
- History of Present Illness Time Seen by Provider: 03/10/19 12:49 Historian: patient, family Exam Limitations: no limitations Physician History: 48 y/o white female presents with left flank and left lower quadrant abd pain. pt underwent a left ureteral stent placement yesterday at [facility] by dr. kelley. pt on tramadol and macrobid. pt has nausea and gross hematuria. pain meds not helping. Timing/Duration: today Quality: stabbing Abdominal Pain Onset Location: LLQ, flank (left) Pain Radiation: no radiation Severity of Pain-Max: moderate Severity of Pain-Current: moderate Modifying Factors: Improves With: nothing Associated Symptoms: nausea, other (hematuria) Previous symptoms: same symptoms as today, recently seen, recent hospitalization , recently treated, other Allergies/Adverse Reactions: No Known Drug Allergies Allergy (Unverified 11/30/17 13:42) Home Medications: Diclofenac Sodium 50 mg PO BID PRN 03/10/19 [History] Nitrofurantoin Monohyd/M-Cryst [Nitrofurantoin [place]-Mcr 100 mg] 100 mg PO BID [History] Ondansetron ODT 4 MG [Zofran Odt 4 mg] 4 mg PO Q8H PRN 03/10/19 [History] Phenazopyridine HCl 100 mg PO TID 03/10/19 [History] Tamsulosin HCl 0.4 mg PO DAILY 03/10/19 [History] Tramadol HCl 50 mg PO Q4H PRN PRN 03/10/19 [History] Trazodone HCl 50 mg [Desyrel 50 mg] 50 mg PO HS 03/10/19 [History] Hx Tetanus, Diphtheria Vaccination/Date Given: No Hx Influenza Vaccination/Date Given: No Hx Pneumococcal Vaccination/Date Given: No - Review of Systems Constitutional: No Symptoms Eyes: No Symptoms Ears, Nose, & Throat: No Symptoms Respiratory: No Symptoms Cardiac: No Symptoms Abdominal/Gastrointestinal: Abdominal Pain (llq), Nausea Genitourinary Symptoms: Hematuria, Flank Pain (left) Musculoskeletal: No Symptoms Skin: No Symptoms Neurological: No Symptoms Psychological: No Symptoms Endocrine: No Symptoms Hematologic/Lymphatic: No Symptoms Immunological/Allergic: No Symptoms All Other Systems: Reviewed and Negative - Past Medical History Pertinent Past Medical History: Yes Neurological History: Migraines ENT History: No Pertinent History Cardiac History: No Pertinent History Respiratory History: Sleep Apnea Endocrine Medical History: No Pertinent History GI Medical History: GERD History: Other Psycho-Social History: Depression Other Medical History: kidney stones,gout - Past Surgical History Past Surgical History: Yes Neuro Surgical History: No Pertinent History Cardiac: No Pertinent History Respiratory: No Pertinent History Gastrointestinal: No Pertinent History Genitourinary: Other (bilateral ureteral stents) Musculoskeletal: No Pertinent History Female Surgical History: Tubal Ligation Other Surgical History: back surgery, kidney stone removal x 3, oopharectomy - Social History Smoking Status: Never smoker Exposure to second hand smoke: Yes Drug Use: none Patient Lives Alone: Yes - Nursing Vital Signs Nursing Vital Signs: Initial Vital Signs Temperature 98.5 F 03/10/19 12:49 Pulse Rate 84 03/10/19 12:49 Respiratory Rate 22 03/10/19 12:49 Blood Pressure 150/91 03/10/19 12:49 O2 Sat by Pulse Oximetry 96 03/10/19 12:49 Pain Scale Pain Intensity 7 - Physical Exam General Appearance: mild distress, alert, anxiety Eye Exam: PERRL/EOMI, eyes nml inspection Ears, Nose, Throat Exam: normal ENT inspection, moist mucous membranes Neck Exam: normal inspection, non-tender, supple, full range of motion Respiratory Exam: normal breath sounds, lungs clear, airway intact, No chest tenderness, No respiratory distress Cardiovascular Exam: regular rate/rhythm, normal heart sounds, normal peripheral pulses Gastrointestinal/Abdomen Exam: soft, tenderness (left lower quad), guarding, No rebound Pelvic Exam: not done Rectal Exam: not done Back Exam: normal inspection, normal range of motion, CVA tenderness (left), No vertebral tenderness Extremity Exam: normal inspection, normal range of motion, pelvis stable Neurologic Exam: alert, oriented x 3, cooperative, precision jig grinder II-XII nml as tested Ordered Tests: Active Orders 24 hr Category Date Time Status IV Insertion STAT Care 03/10/19 13:19 Active ABDOMEN AND PELVIS W/0 CONTRAS [CT] Stat Exams 03/10/19 13:20 Completed AMYLASE Stat Lab 03/10/19 13:19 Completed CBC W DIFF Stat Lab 03/10/19 13:19 Completed CMP Stat Lab 03/10/19 13:19 Completed CULTURE,URINE Stat Lab 03/10/19 Received UA W/RFX UR CULTURE Stat Lab 03/10/19 Completed Medication Summary Generic Name Dose Route Start Last Admin Trade Name Sohail PRN Reason Stop Dose Admin Hydromorphone HCl 1 mg 03/10/19 15:29 Hydromorphone 1 Mg/Ml Ampule IV 03/10/19 15:30 STAT ONE Ceftriaxone Sodium/Dextrose 1 g in 50 mls @ 100 mls/hr 03/10/19 15:10 Rocephin 1 Gm-D5w 50 Ml Bag IV 03/10/19 15:39 STAT STA Discontinued Medications Generic Name Dose Route Start Last Admin Trade Name Sohail PRN Reason Stop Dose Admin Hydromorphone HCl 1 mg 03/10/19 13:19 03/10/19 13:46 Hydromorphone 1 Mg/Ml Ampule IV 03/10/19 13:20 1 mg STAT ONE Administration Hydromorphone HCl Confirm 03/10/19 13:31 Hydromorphone 1 Mg/Ml Ampule Administered 03/10/19 13:32 Dose 1 mg .ROUTE .STK-MED ONE Sodium Chloride 1,000 mls @ 999 mls/hr 03/10/19 13:19 03/10/19 14:56 Sodium Chloride 0.9% 1000 Ml IV 03/10/19 14:19 Infused .Q1H1M STA Infusion Sodium Chloride Confirm 03/10/19 13:31 Sodium Chloride 0.9% 1000 Ml Administered 03/10/19 13:32 Dose 1,000 mls @ ud .ROUTE .STK-MED ONE Ondansetron HCl 4 mg 03/10/19 13:19 03/10/19 13:48 Zofran 4 Mg/2 Ml Vial IV 03/10/19 13:20 4 mg STAT ONE Administration Ondansetron HCl Confirm 03/10/19 13:31 Zofran 4 Mg/2 Ml Vial Administered 03/10/19 13:32 Dose 4 mg .ROUTE .STK-MED ONE Lab/Rad Data: Laboratory Result Diagrams 03/10/19 13:19 03/10/19 13:19 Laboratory Results 03/10/19 03/10/19 03/10/19 Range/Units Unknown 13:19 13:19 WBC 9.9 (4.0-10.5) K/mm3 RBC 3.71 L (4.1-5.4) M/mm3 Hgb 11.5 L (12.0-16.0) gm/dl Hct 35.2 (35-47) % MCV 94.9 (78-100) fl MCH 30.9 (26-32) pg MCHC 32.7 (32-36) g/dl RDW 13.8 (11.5-14.0) % Plt Count 204 (150-450) K/mm3 MPV 10.0 H (6-9.5) fl Gran % 77.4 H (36.0-66.0) % Eos # (Auto) 0.27 (0-0.5) Absolute Lymphs (auto) 1.01 (1.0-4.6) Absolute Monos (auto) 0.94 (0.0-1.3) Lymphocytes % 10.2 L (24.0-44.0) % Monocytes % 9.5 (0.0-12.0) % Eosinophils % 2.7 (0.00-5.0) % Basophils % 0.2 (0.0-0.4) % Absolute Granulocytes 7.67 H (1.4-6.9) Basophils # 0.02 (0-0.4) Sodium 140 (137-145) mmol/L Potassium 4.5 (3.5-5.1) mmol/L Chloride 102 (98-107) mmol/L Carbon Dioxide 29 (22-30) mmol/L Anion Gap 12.4 (5-15) MEQ/L BUN 23 H (7-17) mg/dL Creatinine 0.77 (0.52-1.04) mg/dL Estimated GFR > 60.0 ML/MIN Glucose 177 H (74-106) mg/dL Calcium 9.7 (8.4-10.2) mg/dL Total Bilirubin 0.40 (0.2-1.3) mg/dL AST 35 (14-36) U/L ALT 56 H (0-35) U/L Alkaline Phosphatase 84 (38-126) U/L Serum Total Protein 6.8 (6.3-8.2) g/dL Albumin 3.9 (3.5-5.0) g/dL Amylase 70 (30-110) U/L Urine Color PAMELA (YELLOW) Urine Appearance SLIGHTLY CLOUDY (CLEAR) Urine pH 6.0 (5-6) Ur Specific [place] 1.016 (1.005-1.025) Urine Protein 100 (Negative) Urine Ketones NEGATIVE (NEGATIVE) Urine Blood LARGE (0-5) Carlos/ul Urine Nitrite POSITIVE (NEGATIVE) Urine Bilirubin NEGATIVE (NEGATIVE) Urine Urobilinogen 4 (0-1) mg/dL Ur Leukocyte Esterase MODERATE (NEGATIVE) Urine WBC (Auto) >100 (0-5) /HPF Urine RBC (Auto) >101 (0-2) /HPF U Epithel Cells (Auto) NONE (FEW) /HPF Urine Bacteria (Auto) FEW (NEGATIVE) /HPF Urine Culture Reflexed YES (NO) Urine Glucose NEGATIVE (NEGATIVE) mg/dL - Progress Progress: improved, pain not gone completely, re-examined Progress Note: 03/10/19 15:31 ct abd/pelvis-dislodged left ureteral stent pigtail within urethra spoke with dr. Tai Kelley, pts urologist. i reviewed pt hx, labs and ct findings. he states pts culture and sensitivity reveals e. coli. growth. sensitive to bactrim. will d/c macrobid. dr. kelley states to pull out stent. i removed stent without problems. pt jose a well 03/10/19 15:41 per pt, she is no longer taking methenamine/methlene blue. Counseled pt/family regarding: lab results, diagnosis, need for follow-up, rad results - Departure Departure Disposition: Home Clinical Impression: Ureteral stent displacement, UTI (urinary tract infection) Condition: Stable Critical Care Time: No Referrals: LORETTA JONES [Primary Care Provider] - Additional Instructions: discontinue macro bid antibiotics. drink plenty of fluids. continue tramadol. add tylenol and ibuprofen for pain. follow up with dr. kelley for any other concerns. Prescriptions: Smz/Tmp Ds Tablet [Bactrim Ds Tablet] 1 udtab PO BID #14 tablet
[2019-03-10] MEDS ORDERED: Zofran 4 MG/2 ML VIAL IV ONE (13:19)
[2019-03-10] MEDS ORDERED: Hydromorphone 1 mg/ml Ampule IV ONE ×2 (13:19→15:29)
[2019-03-10] MEDS ORDERED: Sodium Chloride 0.9% 1000 ML 1,000 ML IV STA (13:19)
[2019-03-10] MEDS ORDERED: Sodium Chloride 0.9% 1000 ML 1,000 ML ONE (13:31)
[2019-03-10] MEDS ORDERED: Hydromorphone 1 mg/ml Ampule ONE ×2 (13:31→15:37)
[2019-03-10] MEDS ORDERED: Zofran 4 MG/2 ML VIAL ONE (13:31)
[2019-03-10 13:50] LABS: Absolute Neutrophil Ct (ANC) 7.67 (1.4-6.9); BASOPHIL % 0.2 % (0.0-0.4); Basophil (Absolute #) 0.02 (0-0.4); Eosinophil % 2.7 % (0.00-5.0); Eosinophil (Absolute #) 0.27 (0-0.5); Hematocrit 35.2 % (35-47); Hemoglobin 11.5 gm/dl (12.0-16.0); Lymphocyte (Absolute #) 1.01 (1.0-4.6); Lymphocytes % 10.2 % (24.0-44.0); Mean Cell Volume 94.9 fl (78-100); Mean Corpuscular Hgb Concent. 32.7 g/dl (32-36); Monocyte (Absolute #) 0.94 (0.0-1.3); Monocytes % 9.5 % (0.0-12.0); Neutrophil % 77.4 % (36.0-66.0); Platelet Count 204 K/mm3 (150-450); Red Blood Count 3.71 M/mm3 (4.1-5.4); Red Cell Distribution Width 13.8 % (11.5-14.0); White Blood Count 9.9 K/mm3 (4.0-10.5)
[2019-03-10 13:55] LABS: Mean Corpuscular Hemoglobin 30.9 pg (26-32)
[2019-03-10 14:00] LABS: ALBUMIN 3.9 g/dL (3.5-5.0); ALKALINE PHOSPHATASE 84 U/L (38-126); AMYLASE 70 U/L (30-110); ANION GAP 12.4 MEQ/L (5-15); BLOOD UREA NITROGEN 23 mg/dL (7-17); CHLORIDE 102 mmol/L (98-107); Calcium 9.7 mg/dL (8.4-10.2); Carbon Dioxide 29 mmol/L (22-30); Creatinine 1 0.77 mg/dL (0.52-1.04); Glucose 177 mg/dL (74-106); Potassium 4.5 mmol/L (3.5-5.1); SGOT/AST 35 U/L (14-36); SGPT/ALT 56 U/L (0-35); SODIUM 140 mmol/L (137-145); Total Protein 6.8 g/dL (6.3-8.2)
--- NOTE | 2019-03-10 14:52 | XRAY ---
Indication: Pain and bleeding following bilateral ureteral stent placement. Multiple contiguous axial images obtained through the abdomen and pelvis without contrast as ordered. Comparison: February 25, 2019. Lung bases now demonstrates minimal bibasilar dependent atelectasis. No infiltrate or effusion. Heart is not enlarged. New bilateral double-J ureter stent catheters with the right in good position. Distal left ureteral pigtail tip is seen in the urethra, below the level of the pubic symphysis. Stable mild left hydronephrosis and bilateral nephrocalcinosis. No free fluid/air. Noncontrasted stomach and bowel loops remain nonobstructed again with normal appendix and descending/sigmoid diverticulosis. Stable diffuse fatty liver and calcified splenic granulomas. Remaining liver, gallbladder, pancreas, spleen, adrenal glands, bladder, uterus, and aorta appear unremarkable for noncontrast exam. Impression: 1. New bilateral ureteral stent catheters with right stent in good position. Distal left pigtail tip is in the urethra and warrants readjustment. Stable mild left hydronephrosis and bilateral nephrocalcinosis. 2. Stable colonic diverticulosis and fatty liver. CT DI 28.13
[2019-03-10 14:56] LABS: Appearance SLIGHTLY CLOUDY (CLEAR); Bacteria FEW /HPF (NEGATIVE); Bilirubin NEGATIVE (NEGATIVE); Blood LARGE Ery/ul (0-5); Glucose NEGATIVE (NEGATIVE); Ketones NEGATIVE (NEGATIVE); Leukocyte Esterase MODERATE (NEGATIVE); Nitrite POSITIVE (NEGATIVE); Protein,Urine Dip 100 (Negative); Specific Gravity 1.016 (1.005-1.025); Urobilinogen 4 mg/dL (0-1); WBC >100 /HPF (0-5)
[2019-03-10 14:57] LABS: RBC >101 /HPF (0-2)
[2019-03-10 14:58] VITALS: O2SAT 97
[2019-03-10] MEDS ORDERED: ROCEPHIN 1 Gm-D5w 50 ml Bag** 1 G/50 ML IVPB IV STA (15:10)
[2019-03-10] MEDS ORDERED: ROCEPHIN 1 Gm-D5w 50 ml Bag** 1 G/50 ML IVPB IV ONE (15:37)
[2019-03-10 15:56] VITALS: BP 123/81; PULSE 74
== END 2019-03-10 16:10 | disposition home or self-care (01) ==
LOC: ED 12:41
DX: T83.122A Displacement of indwelling ureteral stent, initial encounter (principal); N39.0 Urinary tract infection, site not specified; R10.32 Left lower quadrant pain
CPT/HCPCS: 36415; 74176; 80053; 81001; 82150; 85025; 87086; 96360; 96374; 99284; J0696; J1170; J2405

== ENCOUNTER 2021-05-14 17:37 | Emergency (ER) | payer OTHER ==
[2021-05-14] MEDS ORDERED: Hydromorphone 1 mg/ml Injection IV ONE ×2 (18:22→19:30)
[2021-05-14] MEDS ORDERED: TORAdol 30 mg Injection IV ONE (18:22)
[2021-05-14] MEDS ORDERED: Zofran 4 MG/2 ML VIAL IV ONE (18:22)
[2021-05-14] MEDS ORDERED: Sodium Chloride 0.9% 1000 ML 1,000 ML IV STA (18:22)
[2021-05-14] MEDS ORDERED: Zofran 4 MG/2 ML VIAL ONE (18:34)
[2021-05-14] MEDS ORDERED: TORAdol 30 mg Injection ONE (18:34)
[2021-05-14] MEDS ORDERED: Hydromorphone 1 mg/ml Injection ONE ×2 (18:35→19:37)
[2021-05-14] MEDS ORDERED: Sodium Chloride 0.9% 1000 ML 1,000 ML ONE (18:35)
--- NOTE | 2021-05-14 18:55 | ERPHSYRPT ---
- History of Present Illness Historian: patient Exam Limitations: clinical condition Patient Subjective Stated Complaint: to er c/o abd pain and frequency with urination . pt states onset approx 1 week lpta pt pain on left abd radiating to right side pt states has hx of brushite stones and this feels similar to her previous stones Triage Nursing Assessment: pt arrives pale/hot and dry, mucus membranes white and dry. pt tearful and anxious. pt was sob when waling to cot though states it is dt her feeling "hot". Quality: aching Abdominal Pain Onset Location: LLQ, flank (Left) Pain Radiation: flank (Right) Severity of Pain-Max: moderate Severity of Pain-Current: moderate Modifying Factors: Improves With: nothing Associated Symptoms: diaphoresis, fever/chills, nausea, No chest pain, No shortn ess of breath, No vomiting Previous symptoms: no prior history Hx Tetanus, Diphtheria Vaccination/Date Given: No Hx Influenza Vaccination/Date Given: No Hx Pneumococcal Vaccination/Date Given: No - History of Present Illness Time Seen by Provider: 05/14/21 18:15 Physician History: This is a 50-year-old obese white female who presents with left flank pain for 1 week which is radiating to the right flank and left lower quadrant. Patient has a history of gastroesophageal reflux disease. She has a history of ureterolithiasis as well. She has had associated fevers and chills. Patient denies chest pain. She denies shortness of breath. Patient's had frequency of urine. (MINA DAMON) Allergies/Adverse Reactions: No Known Drug Allergies Allergy (Unverified 11/30/17 13:42) Home Medications: Levothyroxine Sodium 112 Mcg [Synthroid 112 Mcg] 112 mcg PO DAILY 05/14/21 [History] Montelukast Sodium 10 mg [Singulair 10 MG] 10 mg PO DAILY 05/14/21 [History] Ropinirole 2Mg [Requip 2Mg Tab] 2 mg PO HS 05/14/21 [History] Travel Risk - International Travel Have you traveled outside of the country in past 3 weeks: No - Coronavirus Screening Are you exhibiting any of the following symptoms?: Yes Symptoms: Fever, Shortness of Breath Close contact with a COVID-19 positive Pt in past 14-21 Days: No - Vaccine Status Have you recieved a Covid-19 vaccination: No - Review of Systems Constitutional: Fever, Chills Eyes: No Symptoms Ears, Nose, & Throat: No Symptoms Respiratory: No Symptoms Cardiac: No Symptoms Abdominal/Gastrointestinal: Abdominal Pain Genitourinary Symptoms: Frequency, Flank Pain (Bilateral) Musculoskeletal: No Symptoms Skin: No Symptoms Neurological: No Symptoms Psychological: No Symptoms Endocrine: No Symptoms Hematologic/Lymphatic: No Symptoms Immunological/Allergic: No Symptoms All Other Systems: Reviewed and Negative - Past Medical History Pertinent Past Medical History: Yes Neurological History: Migraines ENT History: No Pertinent History Cardiac History: No Pertinent History Respiratory History: Sleep Apnea Endocrine Medical History: No Pertinent History GI Medical History: GERD History: Other Psycho-Social History: Depression Other Medical History: brushite kidney stones,gout - Past Surgical History Past Surgical History: Yes Neuro Surgical History: No Pertinent History Cardiac: No Pertinent History Respiratory: No Pertinent History Gastrointestinal: No Pertinent History Genitourinary: Other Musculoskeletal: No Pertinent History Female Surgical History: Tubal Ligation Other Surgical History: back surgery, kidney stone removal x 3, oopharectomy - Social History Smoking Status: Never smoker Exposure to second hand smoke: Yes Drug Use: none Patient Lives Alone: Yes - Physical Exam General Appearance: moderate distress, alert, anxiety, obese Eye Exam: PERRL/EOMI, eyes nml inspection Ears, Nose, Throat Exam: normal ENT inspection, moist mucous membranes Neck Exam: normal inspection, non-tender, supple, full range of motion Respiratory Exam: normal breath sounds, lungs clear, airway intact, No chest tenderness, No respiratory distress Cardiovascular Exam: tachycardia Gastrointestinal/Abdomen Exam: soft, normal bowel sounds, tenderness (Mild left lower quadrant), guarding, No rebound Pelvic Exam: not done Rectal Exam: not done Back Exam: normal inspection, normal range of motion, CVA tenderness (Left), No vertebral tenderness Extremity Exam: normal inspection, normal range of motion, pelvis stable Neurologic Exam: alert, oriented x 3, cooperative, turntable man II-XII nml as tested, normal mood/affect, nml cerebellar function, nml station & gait, sensation nml Skin Exam: normal color, warm, dry Lymphatic Exam: No adenopathy SpO2 Interpretation: normal SpO2: 100 O2 Delivery: Room Air - Nursing Vital Signs Nursing Vital Signs: Initial Vital Signs Temperature 102.6 F 05/14/21 17:59 Pulse Rate 107 H 05/14/21 17:59 Respiratory Rate 26 H 05/14/21 17:59 Blood Pressure 148/93 05/14/21 17:59 O2 Sat by Pulse Oximetry 96 05/14/21 17:59 Pain Scale Pain Intensity 10 - Course Nursing assessment & vital signs reviewed: Yes Ordered Tests: Active Orders 24 hr Category Date Time Status IV Insertion STAT Care 05/14/21 18:22 Active ABDOMEN AND PELVIS W/0 CONTRAS [CT] Stat Exams 05/14/21 18:23 Taken AMYLASE Stat Lab 05/14/21 18:22 Ordered BLOOD CULTURE Stat Lab 05/14/21 18:23 Ordered CBC W DIFF Stat Lab 05/14/21 19:02 Completed CMP Stat Lab 05/14/21 18:22 Ordered LIPASE Stat Lab 05/14/21 18:22 Ordered Lactic Acid Stat Lab 05/14/21 18:22 Ordered UA W/RFX UR CULTURE Stat Lab 05/14/21 18:46 Received Medication Summary Generic Name Dose Route Start Last Admin Trade Name Sohail PRN Reason Stop Dose Admin Ceftriaxone Sodium/Dextrose 2 g in 50 mls @ 100 mls/hr 05/14/21 19:23 Rocephin 2 Gm-D5w 50ml Bag IV 05/14/21 19:52 STAT STA Discontinued Medications Generic Name Dose Route Start Last Admin Trade Name Frejet PRN Reason Stop Dose Admin Acetaminophen 975 mg 05/14/21 19:11 05/14/21 19:15 Acetaminophen 325 Mg Tablet PO 05/14/21 19:12 975 mg STAT STA Administration Acetaminophen Confirm 05/14/21 19:12 Acetaminophen 325 Mg Tablet Administered 05/14/21 19:13 Dose 975 mg .ROUTE .STK-MED ONE Hydromorphone HCl 1 mg 05/14/21 18:22 05/14/21 18:42 Hydromorphone 1 Mg/1ml Inj 1 Mg/Ml Syringe IV 05/14/21 18:23 1 mg STAT ONE Administration Hydromorphone HCl Confirm 05/14/21 18:35 Hydromorphone 1 Mg/1ml Inj 1 Mg/Ml Syringe Administered 05/14/21 18:36 Dose 1 mg .ROUTE .STK-MED ONE Sodium Chloride 1,000 mls @ 999 mls/hr 05/14/21 18:22 05/14/21 18:37 Sodium Chloride 0.9% 1000 Ml IV 05/14/21 19:22 999 mls/hr .Q1H1M STA Administration Sodium Chloride Confirm 05/14/21 18:35 Sodium Chloride 0.9% 1000 Ml Administered 05/14/21 18:36 Dose 1,000 mls @ ud .ROUTE .STK-MED ONE Ketorolac Tromethamine 30 mg 05/14/21 18:22 05/14/21 18:39 Ketorolac Tromethamine 30 Mg/Ml Inj IV 05/14/21 18:23 30 mg STAT ONE Administration Ketorolac Tromethamine Confirm 05/14/21 18:34 Ketorolac Tromethamine 30 Mg/Ml Inj Administered 05/14/21 18:35 Dose 30 mg .ROUTE .STK-MED ONE Ondansetron HCl 4 mg 05/14/21 18:22 05/14/21 18:41 Ondansetron Hcl 4 Mg/2 Ml Vial IV 05/14/21 18:23 4 mg STAT ONE Administration Ondansetron HCl Confirm 05/14/21 18:34 Ondansetron Hcl 4 Mg/2 Ml Vial Administered 05/14/21 18:35 Dose 4 mg .ROUTE .STK-MED ONE Lab/Rad Data: Laboratory Result Diagrams 05/14/21 19:02 Laboratory Results 05/14/21 Range/Units 19:02 WBC 8.8 (4.0-10.5) K/mm3 RBC 4.35 (4.1-5.4) M/mm3 Hgb 12.6 (12.0-16.0) gm/dl Hct 39.8 (35-47) % MCV 91.5 (78-100) fl MCH 29.0 (26-32) pg MCHC 31.7 L (32-36) g/dl RDW 15.0 H (11.5-14.0) % Plt Count 235 (150-450) K/mm3 MPV 11.1 H (7.5-11.0) fl Gran % 91.0 H (36.0-66.0) % Eos # (Auto) 0.21 (0-0.5) Absolute Lymphs (auto) 0.29 L (1.0-4.6) Absolute Monos (auto) 0.27 (0.0-1.3) Lymphocytes % 3.3 L (24.0-44.0) % Monocytes % 3.1 (0.0-12.0) % Eosinophils % 2.4 (0.00-5.0) % Basophils % 0.2 (0.0-0.4) % Absolute Granulocytes 7.97 H (1.4-6.9) Basophils # 0.02 (0-0.4) - Progress Progress: improved, pain not gone completely Counseled pt/family regarding: lab results, diagnosis, need for follow-up, rad results - Progress Progress Note: 05/14/21 18:54 Patient care is being transferred to Dr. Wade Wade at shift change. He will follow up on the pending studies and make final disposition. (MINA DAMON) 05/14/21 19:24 Patient care was transitioned to sc by Dr. Damon pending CT results. I personally reviewed the CT scan it appears she has a rather large obstructing kidney stone in the left mid to distal ureter with evidence of stranding and hydronephrosis. In the context of a fever and flank pain this is likely an infected kidney stone which will require immediate transfer to a facility with urological services. Have ordered 2 g of ceftriaxone to be administered. (WADE WADE) - Departure Departure Disposition: Observation Critical Care Time: No - Departure Clinical Impression: Bilateral flank pain, Fever Condition: Stable Referrals: MALORIE LUX MD [Primary Care Provider] - Follow up/PCP as directed
[2021-05-14 19:05] LABS: Absolute Neutrophil Ct (ANC) 7.97 (1.4-6.9); BASOPHIL % 0.2 % (0.0-0.4); Basophil (Absolute #) 0.02 (0-0.4); Eosinophil % 2.4 % (0.00-5.0); Eosinophil (Absolute #) 0.21 (0-0.5); Hematocrit 39.8 % (35-47); Hemoglobin 12.6 gm/dl (12.0-16.0); Lymphocyte (Absolute #) 0.29 (1.0-4.6); Lymphocytes % 3.3 % (24.0-44.0); Mean Cell Volume 91.5 fl (78-100); Mean Corpuscular Hgb Concent. 31.7 g/dl (32-36); Mean Platelet Volume 11.1 fl (7.5-11.0); Monocyte (Absolute #) 0.27 (0.0-1.3); Monocytes % 3.1 % (0.0-12.0); Platelet Count 235 K/mm3 (150-450); Red Blood Count 4.35 M/mm3 (4.1-5.4); White Blood Count 8.8 K/mm3 (4.0-10.5)
[2021-05-14] MEDS ORDERED: TYLENOL 325 MG PO STA (19:11)
[2021-05-14] MEDS ORDERED: TYLENOL 325 MG ONE (19:12)
[2021-05-14] MEDS ORDERED: ROCEPHIN 2 Gm-D5w 50ML BAG** 2 G/50 ML IVPB IV STA (19:23)
[2021-05-14] MEDS ORDERED: ROCEPHIN 2 Gm-D5w 50ML BAG** 2 G/50 ML IVPB IV ONE (19:26)
[2021-05-14 19:40] LABS: Amourphous Crystal FEW /HPF (NEGATIVE); Appearance CLOUDY (CLEAR); Bacteria RARE /HPF (NEGATIVE); Bilirubin NEGATIVE (NEGATIVE); Blood NEGATIVE Ery/ul (0-5); Epithelial Cells RARE /HPF (FEW); Glucose NEGATIVE (NEGATIVE); Ketones NEGATIVE (NEGATIVE); Leukocyte Esterase TRACE (NEGATIVE); Mucus SLIGHT /HPF (NEGATIVE); Nitrite POSITIVE (NEGATIVE); Protein,Urine Dip 100 (Negative); Specific Gravity 1.017 (1.005-1.025); Urobilinogen NEGATIVE mg/dL (0-1); WBC 26-50 /HPF (0-5)
[2021-05-14 19:47] LABS: ALBUMIN 3.8 g/dL (3.5-5.0); ANION GAP 12.5 MEQ/L (5-15); BILIRUBIN,TOTAL 0.9 mg/dL (0.2-1.3); Calcium 9.4 mg/dL (8.4-10.2); Creatinine 1 1.42 mg/dL (0.52-1.04); EST GLOMERULAR FILTRATION RATE 41.5 ML/MIN; Potassium 3.5 mmol/L (3.5-5.1); Total Protein 7.7 g/dL (6.3-8.2)
[2021-05-14 20:20] VITALS: BP 114/70; PULSE 75; O2SAT 97
--- NOTE | 2021-05-15 08:43 | XRAY ---
Indication: Bilateral flank pain. History kidney stones. Multiple contiguous axial images obtained through the abdomen and pelvis without contrast using renal stone protocol. Comparison: March 10, 2019. Lung bases demonstrates moderate left and minimal right dependent atelectasis and tiny left effusion. Heart is not enlarged. New 1.2 cm distal left ureter calculus approximately 1-2 cm proximal to the UVJ. Proximal left ureter is distended up to 1.5 cm along with significant hydronephrosis favoring high-grade obstruction. No perinephric fluid. Additional bilateral renal micro-calculi. Noncontrasted stomach and bowel loops nonobstructed with normal appendix. There remains minimal descending and sigmoid diverticulosis. No free fluid/air. Again diffuse fatty liver and a few calcified splenic granulomas. Remaining liver, gallbladder, pancreas, spleen, adrenal glands, bladder, uterus, and aorta are unremarkable for noncontrast exam. Osseous structures intact. Impression: 1. New 1.2 cm distal left ureter calculus producing high-grade obstruction. Again additional bilateral micro-calculi. 2. Worsening bibasilar dependent atelectasis with new tiny left effusion. 3. Again incidental fatty liver and colonic diverticulosis. Comment: Preliminary interpretation made by C. No critical discrepancy.
== END 2021-05-14 21:00 | disposition short-term general hospital (02) ==
LOC: ED 17:37
DX: N10 Acute pyelonephritis (principal); N20.0 Calculus of kidney; Z87.442 Personal history of urinary calculi; R50.9 Fever, unspecified; N39.0 Urinary tract infection, site not specified
CPT/HCPCS: 36000; 36415; 74176; 80053; 81001; 82150; 83605; 83690; 85025; 87040; 87086; 96374; 96375; 96376; 99285; J0696; J1170; J1885; J2405; A9270-GY

== ENCOUNTER 2023-12-16 16:22 | Observation (INO) | payer BC ==
--- NOTE | 2023-12-16 16:28 | ERPHSYRPT ---
- History of Present Illness Source: patient Exam Limitations: no limitations Occurred: just prior to arrival Method of Injury: unknown Quality: constant, aching Severity of Pain-Max: moderate Severity of Pain-Current: moderate Extremities Pain Location: shoulder: right Modifying Factors: Improves With: nothing Associated Symptoms: none Hx Tetanus, Diphtheria Vaccination/Date Given: No Hx Influenza Vaccination/Date Given: No Hx Pneumococcal Vaccination/Date Given: No <MINA DAMON - Last Filed: 12/16/23 19:09> <VIKA HARMAN - Last Filed: 12/16/23 22:19> - History of Present Illness Time Seen by Provider: 12/16/23 16:28 Physician History: This is a morbidly obese 53-year-old white female patient who was brought in to the emergency department by private vehicle by her /significant other. She is a patient of Dr. Lux. This patient has multiple pain complaints. She underwent, in the last week to 10 days, an exploratory laparotomy for a perforated upper intestinal track ulcer. Patient describes the procedure and is oversewing and closure of the ulcer. She was initially seen at [facility] then transferred to [facility] where the surgical procedure was performed. Postoperatively she was discharged to a rehab center in [place] and then recently was discharged to home. Today, she had complaints of shoulder pain on the right side. Is described as constant aching as well as left anterior chest wall pain. Patient has a history of gastroesophageal reflux disease, asthma and hypothyroidism. Patient denies chest pain. (MINA DAMON) Allergies/Adverse Reactions: piperacillin Allergy (Verified 12/16/23 16:35) sulfamethoxazole Allergy (Verified 12/16/23 16:35) tazobactam Allergy (Verified 12/16/23 16:35) trimethoprim Allergy (Verified 12/16/23 16:35) Home Medications: Levothyroxine Sodium 112 Mcg [Synthroid 112 Mcg] 100 mcg PO DAILY 05/14/21 [History] Montelukast Sodium 10 mg [Singulair 10 MG] 10 mg PO DAILY 05/14/21 [History] Ropinirole 2Mg [Requip 2Mg Tab] 4 mg PO HS 05/14/21 [History] Travel Risk - International Travel Have you traveled outside of the country in past 3 weeks: No - Emerging Infectious Disease Are you exhibiting symptoms associated with any current EIDs: No Symptoms: Abdominal Pain <MINA DAMON - Last Filed: 12/16/23 19:09> - Review of Systems Constitutional: No Symptoms Eyes: No Symptoms Ears, Nose, & Throat: No Symptoms Respiratory: No Symptoms Cardiac: No Symptoms Abdominal/Gastrointestinal: No Symptoms Genitourinary Symptoms: No Symptoms Musculoskeletal: No Symptoms Skin: No Symptoms Neurological: No Symptoms Psychological: No Symptoms Endocrine: No Symptoms Hematologic/Lymphatic: No Symptoms Immunological/Allergic: No Symptoms All Other Systems: Reviewed and Negative <MINA DAMON - Last Filed: 12/16/23 19:09> - Past Medical History Pertinent Past Medical History: Yes Neurological History: Migraines ENT History: No Pertinent History Cardiac History: No Pertinent History Respiratory History: Sleep Apnea Endocrine Medical History: No Pertinent History GI Medical History: GERD History: Other Psycho-Social History: Depression Other Medical History: brushite kidney stones,gout - Past Surgical History Past Surgical History: Yes Neuro Surgical History: No Pertinent History Cardiac: No Pertinent History Respiratory: No Pertinent History Gastrointestinal: No Pertinent History Genitourinary: No Pertinent History, Other Musculoskeletal: No Pertinent History Female Surgical History: Tubal Ligation Other Surgical History: back surgery, kidney stone removal x 3, oopharectomy - Social History Smoking Status: Never smoker Exposure to second hand smoke: Yes Drug Use: none Patient Lives Alone: Yes <MINA DAMON - Last Filed: 12/16/23 19:09> - Physical Exam General Appearance: mild distress, alert, anxiety, obese Eyes, Ears, Nose, Throat Exam: normal ENT inspection, moist mucous membranes Neck Exam: normal inspection, non-tender, supple, full range of motion Cardiovascular/Respiratory Exam: chest non-tender, normal breath sounds, no respiratory distress, tachycardia Abdominal Exam: non-tender (Open midline wound. The fascia appears to be intact.) Back Exam: normal inspection, normal range of motion, No CVA tenderness, No vertebral tenderness Shoulder Exam: normal inspection, non-tender, no evidence of injury, normal ROM Elbow/Forearm Exam: normal inspection, no evidence of injury, normal ROM, soft tissue tenderness (Right shoulder) Wrist Exam: normal inspection, non-tender, no evidence of injury, normal ROM, abrasions Hand Exam: normal inspection, non-tender, no evidence of injury, normal ROM Neuro/Tendon Exam: normal sensation, normal motor functions, normal tendon functions Mental Status Exam: alert, oriented x 3 Skin Exam: normal color, warm, dry SpO2 Interpretation: normal O2 Delivery: Room Air <MINA DAMON - Last Filed: 12/16/23 19:09> - Nursing Vital Signs Nursing Vital Signs: Initial Vital Signs Blood Pressure 133/105 12/16/23 16:32 O2 Sat by Pulse Oximetry 93 L 12/16/23 16:32 Pain Scale Pain Intensity 0 - Course Nursing assessment & vital signs reviewed: Yes EKG Interpreted by Me: RATE (105), Sinus Tach, NORMAL AXIS, NORMAL INTERVALS, NORMAL QRS, Other (No acute ischemic changes on today's twelve-lead EKG.) <MINA DAMON - Last Filed: 12/16/23 19:09> - Course EKG Interpreted by Me: RATE <VIKA HARMAN - Last Filed: 12/16/23 22:19> Ordered Tests: Active Orders 24 hr Category Date Time Status EKG-ER Only STAT Care 12/16/23 17:06 Active IV Insertion STAT Care 12/16/23 17:06 Active IV Insertion-2nd Peripheral STAT Care 12/16/23 21:10 Active cath [Cath for Specimen-Straight] STAT Care 12/16/23 17:12 Active ABDOMEN AND PELVIS W/0 CONTRAS [CT] Stat Exams 12/16/23 18:50 Taken CHEST WITH CONTRAST [CT] Stat Exams 12/16/23 18:49 Taken SHOULDER Stat Exams 12/16/23 17:16 Taken AMYLASE Stat Lab 12/16/23 17:30 Completed BLOOD CULTURE Stat Lab 12/16/23 17:30 Received BNPII [NT PRO BNPII] Stat Lab 12/16/23 17:30 Completed CBC W DIFF Stat Lab 12/16/23 17:30 Completed CMP Stat Lab 12/16/23 17:30 Completed CULTURE,URINE Stat Lab 12/16/23 17:13 Received D-DIMER QUANTITATIVE Stat Lab 12/16/23 17:30 Completed LIPASE Stat Lab 12/16/23 17:30 Completed Lactic Acid Stat Lab 12/16/23 17:35 Completed TROPONIN Q4H Lab 12/16/23 17:30 Completed TROPONIN Q4H Lab 12/16/23 21:05 Completed TROPONIN Q4H Lab 12/17/23 01:15 Ordered UA W/RFX UR CULTURE Stat Lab 12/16/23 17:12 Completed Medication Summary Generic Name Dose Route Start Last Admin Trade Name Sohail PRN Reason Stop Dose Admin Sodium Chloride 1,000 mls @ 100 mls/hr 12/16/23 17:15 12/16/23 17:31 Sodium Chloride 0.9% 1000 Ml IV 01/15/24 17:14 100 mls/hr .Q10H NAVID Administration Discontinued Medications Generic Name Dose Route Start Last Admin Trade Name Sohail PRN Reason Stop Dose Admin Hydromorphone HCl 1 mg 12/16/23 17:06 12/16/23 17:34 Hydromorphone 1 Mg/1ml Inj IV 12/16/23 17:07 1 mg STAT ONE Administration Hydromorphone HCl Confirm 12/16/23 17:14 Hydromorphone 1 Mg/1ml Inj Administered 12/16/23 17:15 Dose 1 mg .ROUTE .STK-MED ONE Hydromorphone HCl 1 mg 12/16/23 18:38 12/16/23 18:40 Hydromorphone 1 Mg/1ml Inj IV 12/16/23 18:39 1 mg STAT ONE Administration Hydromorphone HCl Confirm 12/16/23 18:39 Hydromorphone 1 Mg/1ml Inj Administered 12/16/23 18:40 Dose 1 mg .ROUTE .STK-MED ONE Ondansetron HCl 4 mg 12/16/23 17:06 12/16/23 17:33 Ondansetron Hcl 4 Mg/2 Ml Vial IV 12/16/23 17:07 4 mg STAT ONE Administration Ondansetron HCl Confirm 12/16/23 17:14 Ondansetron Hcl 4 Mg/2 Ml Vial Administered 12/16/23 17:15 Dose 4 mg .ROUTE .STK-MED ONE Lab/Rad Data: Laboratory Result Diagrams 12/16/23 17:30 12/16/23 17:30 Laboratory Results 12/16/23 12/16/23 12/16/23 Range/Units 21:05 18:15 18:15 WBC (3.98-10.04) x10^3/uL RBC (3.93-5.22) x10^6/uL Hgb (11.2-15.7) g/dL Hct (34.1-44.9) % MCV (79.4-94.8) fL MCH (25.6-32.2) pg MCHC (32.2-35.5) g/dL RDW (11.7-14.4) % Plt Count (182-369) x10^3/uL MPV (9.4-12.3) fL Gran % (34.0-71.1) % Immature Gran % (Auto) (0.001-0.429) % Nucleat RBC Rel Count (0.00-0.2) % Eos # (Auto) (0.04-0.36) x10^3/uL Immature Gran # (Auto) (0.001-0.031) x10^3u/L Absolute Lymphs (auto) (1.18-3.74) x10^3/uL Absolute Monos (auto) (0.24-0.86) x10^3/uL Absolute Nucleated RBC (0.00-0.012) x10^3u/L Lymphocytes % (19.3-51.7) % Monocytes % (4.7-12.5) % Eosinophils % (0.7-5.8) % Basophils % (0.1-1.2) % Absolute Granulocytes (1.56-6.13) x10^3/uL Basophils # (0.01-0.08) x10^3/uL D-Dimer (0.0-0.50) mg/L Sodium (135-145) mmol/L Potassium (3.5-5.1) mmol/L Chloride (98-107) mmol/L Carbon Dioxide (22-30) mmol/L Anion Gap (5-15) MEQ/L BUN (7-17) mg/dL Creatinine (0.52-1.04) mg/dL Estimated GFR ML/MIN Glucose (74-106) mg/dL Lactic Acid (0.4-2.0) Calcium (8.4-10.2) mg/dL Total Bilirubin (0.2-1.3) mg/dL AST (14-36) U/L ALT (0-35) U/L Alkaline Phosphatase (38-126) U/L Troponin I < 0.012 (0.000-0.033) ng/mL NT-Pro-B Natriuret Pep (<300) pg/mL Serum Total Protein (6.3-8.2) g/dL Albumin (3.5-5.0) g/dL Amylase (30-110) U/L Lipase (23-300) U/L Urine Color (Yellow) Urine Appearance (Clear) Urine pH (4.6-8.0) Ur Specific [place] (1.005-1.030) Urine Protein (Negative) Urine Glucose (UA) (Negative) mg/dL Urine Ketones (Negative) Urine Blood (Negative) Urine Nitrite (Negative) Urine Bilirubin (Negative) Urine Urobilinogen (0.2) mg/dL Ur Leukocyte Esterase (Negative) U Hyaline Cast (Auto) (0-2) /LPF Urine Microscopic RBC (0-5) /HPF Urine Microscopic WBC (0-5) /HPF Ur Epithelial Cells (None Seen) /HPF Urine Bacteria (None Seen) /HPF Urine Culture Reflexed (NO) ABO Group O Rh Factor NEGATIVE Antibody Screen NEGATIVE (NEGATIVE) Crossmatch COMPATIBLE COMPATIBLE (COMPATIBLE) 12/16/23 12/16/23 12/16/23 Range/Units 17:35 17:30 17:30 WBC (3.98-10.04) x10^3/uL RBC (3.93-5.22) x10^6/uL Hgb (11.2-15.7) g/dL Hct (34.1-44.9) % MCV (79.4-94.8) fL MCH (25.6-32.2) pg MCHC (32.2-35.5) g/dL RDW (11.7-14.4) % Plt Count (182-369) x10^3/uL MPV (9.4-12.3) fL Gran % (34.0-71.1) % Immature Gran % (Auto) (0.001-0.429) % Nucleat RBC Rel Count (0.00-0.2) % Eos # (Auto) (0.04-0.36) x10^3/uL Immature Gran # (Auto) (0.001-0.031) x10^3u/L Absolute Lymphs (auto) (1.18-3.74) x10^3/uL Absolute Monos (auto) (0.24-0.86) x10^3/uL Absolute Nucleated RBC (0.00-0.012) x10^3u/L Lymphocytes % (19.3-51.7) % Monocytes % (4.7-12.5) % Eosinophils % (0.7-5.8) % Basophils % (0.1-1.2) % Absolute Granulocytes (1.56-6.13) x10^3/uL Basophils # (0.01-0.08) x10^3/uL D-Dimer 20.49 H* (0.0-0.50) mg/L Sodium (135-145) mmol/L Potassium (3.5-5.1) mmol/L Chloride (98-107) mmol/L Carbon Dioxide (22-30) mmol/L Anion Gap (5-15) MEQ/L BUN (7-17) mg/dL Creatinine (0.52-1.04) mg/dL Estimated GFR ML/MIN Glucose (74-106) mg/dL Lactic Acid 1.1 (0.4-2.0) Calcium (8.4-10.2) mg/dL Total Bilirubin (0.2-1.3) mg/dL AST (14-36) U/L ALT (0-35) U/L Alkaline Phosphatase (38-126) U/L Troponin I (0.000-0.033) ng/mL NT-Pro-B Natriuret Pep 269 (<300) pg/mL Serum Total Protein (6.3-8.2) g/dL Albumin (3.5-5.0) g/dL Amylase (30-110) U/L Lipase (23-300) U/L Urine Color (Yellow) Urine Appearance (Clear) Urine pH (4.6-8.0) Ur Specific [place] (1.005-1.030) Urine Protein (Negative) Urine Glucose (UA) (Negative) mg/dL Urine Ketones (Negative) Urine Blood (Negative) Urine Nitrite (Negative) Urine Bilirubin (Negative) Urine Urobilinogen (0.2) mg/dL Ur Leukocyte Esterase (Negative) U Hyaline Cast (Auto) (0-2) /LPF Urine Microscopic RBC (0-5) /HPF Urine Microscopic WBC (0-5) /HPF Ur Epithelial Cells (None Seen) /HPF Urine Bacteria (None Seen) /HPF Urine Culture Reflexed (NO) ABO Group Rh Factor Antibody Screen (NEGATIVE) Crossmatch (COMPATIBLE) 12/16/23 12/16/23 12/16/23 Range/Units 17:30 17:30 17:30 WBC 14.4 H (3.98-10.04) x10^3/uL RBC 2.49 L (3.93-5.22) x10^6/uL Hgb 6.8 L* (11.2-15.7) g/dL Hct 22.5 L (34.1-44.9) % MCV 90.4 (79.4-94.8) fL MCH 27.3 (25.6-32.2) pg MCHC 30.2 L (32.2-35.5) g/dL RDW 16.9 H (11.7-14.4) % Plt Count 523 H (182-369) x10^3/uL MPV 8.9 L (9.4-12.3) fL Gran % 80.5 H (34.0-71.1) % Immature Gran % (Auto) 1.2 H (0.001-0.429) % Nucleat RBC Rel Count 0.0 (0.00-0.2) % Eos # (Auto) 0.19 (0.04-0.36) x10^3/uL Immature Gran # (Auto) 0.17 H (0.001-0.031) x10^3u/L Absolute Lymphs (auto) 1.68 (1.18-3.74) x10^3/uL Absolute Monos (auto) 0.74 (0.24-0.86) x10^3/uL Absolute Nucleated RBC 0.00 (0.00-0.012) x10^3u/L Lymphocytes % 11.6 L (19.3-51.7) % Monocytes % 5.1 (4.7-12.5) % Eosinophils % 1.3 (0.7-5.8) % Basophils % 0.3 (0.1-1.2) % Absolute Granulocytes 11.61 H (1.56-6.13) x10^3/uL Basophils # 0.04 (0.01-0.08) x10^3/uL D-Dimer (0.0-0.50) mg/L Sodium 136 (135-145) mmol/L Potassium 3.7 (3.5-5.1) mmol/L Chloride 100 (98-107) mmol/L Carbon Dioxide 28 (22-30) mmol/L Anion Gap 11.0 (5-15) MEQ/L BUN 16 (7-17) mg/dL Creatinine 0.81 (0.52-1.04) mg/dL Estimated GFR 86.2 ML/MIN Glucose 168 H (74-106) mg/dL Lactic Acid (0.4-2.0) Calcium 9.1 (8.4-10.2) mg/dL Total Bilirubin 0.30 (0.2-1.3) mg/dL AST 24 (14-36) U/L ALT 21 (0-35) U/L Alkaline Phosphatase 133 H (38-126) U/L Troponin I < 0.012 (0.000-0.033) ng/mL NT-Pro-B Natriuret Pep (<300) pg/mL Serum Total Protein 7.5 (6.3-8.2) g/dL Albumin 3.1 L (3.5-5.0) g/dL Amylase 59 (30-110) U/L Lipase 60 (23-300) U/L Urine Color (Yellow) Urine Appearance (Clear) Urine pH (4.6-8.0) Ur Specific [place] (1.005-1.030) Urine Protein (Negative) Urine Glucose (UA) (Negative) mg/dL Urine Ketones (Negative) Urine Blood (Negative) Urine Nitrite (Negative) Urine Bilirubin (Negative) Urine Urobilinogen (0.2) mg/dL Ur Leukocyte Esterase (Negative) U Hyaline Cast (Auto) (0-2) /LPF Urine Microscopic RBC (0-5) /HPF Urine Microscopic WBC (0-5) /HPF Ur Epithelial Cells (None Seen) /HPF Urine Bacteria (None Seen) /HPF Urine Culture Reflexed (NO) ABO Group Rh Factor Antibody Screen (NEGATIVE) Crossmatch (COMPATIBLE) 12/16/23 Range/Units 17:12 WBC (3.98-10.04) x10^3/uL RBC (3.93-5.22) x10^6/uL Hgb (11.2-15.7) g/dL Hct (34.1-44.9) % MCV (79.4-94.8) fL MCH (25.6-32.2) pg MCHC (32.2-35.5) g/dL RDW (11.7-14.4) % Plt Count (182-369) x10^3/uL MPV (9.4-12.3) fL Gran % (34.0-71.1) % Immature Gran % (Auto) (0.001-0.429) % Nucleat RBC Rel Count (0.00-0.2) % Eos # (Auto) (0.04-0.36) x10^3/uL Immature Gran # (Auto) (0.001-0.031) x10^3u/L Absolute Lymphs (auto) (1.18-3.74) x10^3/uL Absolute Monos (auto) (0.24-0.86) x10^3/uL Absolute Nucleated RBC (0.00-0.012) x10^3u/L Lymphocytes % (19.3-51.7) % Monocytes % (4.7-12.5) % Eosinophils % (0.7-5.8) % Basophils % (0.1-1.2) % Absolute Granulocytes (1.56-6.13) x10^3/uL Basophils # (0.01-0.08) x10^3/uL D-Dimer (0.0-0.50) mg/L Sodium (135-145) mmol/L Potassium (3.5-5.1) mmol/L Chloride (98-107) mmol/L Carbon Dioxide (22-30) mmol/L Anion Gap (5-15) MEQ/L BUN (7-17) mg/dL Creatinine (0.52-1.04) mg/dL Estimated GFR ML/MIN Glucose (74-106) mg/dL Lactic Acid (0.4-2.0) Calcium (8.4-10.2) mg/dL Total Bilirubin (0.2-1.3) mg/dL AST (14-36) U/L ALT (0-35) U/L Alkaline Phosphatase (38-126) U/L Troponin I (0.000-0.033) ng/mL NT-Pro-B Natriuret Pep (<300) pg/mL Serum Total Protein (6.3-8.2) g/dL Albumin (3.5-5.0) g/dL Amylase (30-110) U/L Lipase (23-300) U/L Urine Color Yellow (Yellow) Urine Appearance Clear (Clear) Urine pH 7.0 (4.6-8.0) Ur Specific [place] 1.015 (1.005-1.030) Urine Protein 30 (Negative) Urine Glucose (UA) Negative (Negative) mg/dL Urine Ketones Negative (Negative) Urine Blood Negative (Negative) Urine Nitrite Negative (Negative) Urine Bilirubin Negative (Negative) Urine Urobilinogen 0.2 (0.2) mg/dL Ur Leukocyte Esterase Trace A (Negative) U Hyaline Cast (Auto) 0-2 (0-2) /LPF Urine Microscopic RBC 0-2 (0-5) /HPF Urine Microscopic WBC 3-5 (0-5) /HPF Ur Epithelial Cells Moderate A (None Seen) /HPF Urine Bacteria Rare A (None Seen) /HPF Urine Culture Reflexed YES (NO) ABO Group Rh Factor Antibody Screen (NEGATIVE) Crossmatch (COMPATIBLE) - Progress Progress: improved, pain not gone completely <MINA DAMON - Last Filed: 12/16/23 19:09> - Progress Progress: re-examined Discussed with : Ingris Counseled pt/family regarding: lab results, diagnosis, rad results <VIKA HARMAN - Last Filed: 12/16/23 22:19> - Progress Progress Note: 12/16/23 17:15 My medical decision making and the assignment of moderate complexity to this patient's medical issue today is based on review of the patient's past medical history, review the patient's medication list, review of the patient's drug allergy list, history present illness and physical findings on examination. The workup in this patient includes placement of intravenous line, infusion nursing solution, CBC, CMP, twelve-lead EKG, troponin level, D-dimer level, urinalysis, we will order a CT scan of the abdomen pelvis and a CT scan of the chest p ossibly with contrast and possibly without depending on the value of the D- dimer. Will also order a right shoulder x-ray. 12/16/23 18:51 Transfer of care of this patient to Dr. Harman at shift change. He will follow- up on the radiographic and laboratory studies and make final disposition. (MINA DAMON) 12/16/23 22:13 Patient is checked out to me at shift change from Dr. Lawler with pending workup. Patient presented in the ER with right shoulder and left chest pain. Patient has a recent history of fall approximately with open wound packing going for secondary intention healing. Patient workup showed no acute ischemic changes on the EKG, mild tachycardia. Patient has a white count of 14, hemoglobin of 6.8, I have discussed risk and benefits of transfusion and patient agreed to go ahead with that. Dr. Damon is already ordered blood and I believe has discussed with patient as well. Chemistries fairly unremarkable with normal lactate, negative initial troponin and normal BNP. X-rays right shoulder to me it looks subluxed and I have confirmed with radiology as well but per radiology patient's x-ray on the CAT scan does not seems to be subluxed. Patient has history of recent hospitalization where according to her she probably got some injury in the shoulder and has been complaining of pain and has limited range of motion. CTA chest is negative for acute saddle embolus or any big embolus in the big vessels as it was not an optimal study. It did show some congestion/pleural effusion with questionable CHF. Patient CT abdomen pelvis also showed some picture of anasarca/CHF. Patient has no history of CHF. No history of coronary artery disease. She also has right nephrostomy tube and has no acute findings on the CT per preliminary report. Official final reports of CTA and CT abdomen pelvis are pending. Patient is started on transfusion, denies any dark stool hematochezia/hematemesis/melena. I believe patient needs further workup for her left-sided chest pain. Discussed with Dr. Garza, reviewed history, workup and agreed with admission. I have discussed with Dr. Moody about subluxed right shoulder and he will consult with hospitalist. (VIKA HARMAN) Medical Desision Making - Independent Historian Additional History obtained from: Spouse <MINA DAMON - Last Filed: 12/16/23 19:09> - Independent Historian Additional History obtained from: Spouse, Child - Discussion of managment Care discussed with:: hospitalist (Dr. Garza hospitalist and Dr. Moody orthopedics) Reviewed:: Test results Agreed on:: Treatment plan Will see patient: in hospital - Diagnostic Testing Diagnostic test were ordered, analyzed, and reviewed by me: Yes Radiological Interpretation: Interpreted by me, Reviewed by me, Teleradiologist Report - Risk of complications The pt has a mod risk of morbidity or mortality based on: Need for prescription drug management The pt has a high risk of morbidity or mortality based on: Decision regarding hospitilization or escalation of hosp level of care <VIKA HARMAN - Last Filed: 12/16/23 22:19> - Departure Departure Disposition: In-patient Admission Critical Care Time: Yes Critical Care Time(excluding separately billable procedures): Critical 30-74 mins (40) <MINA DAMON - Last Filed: 12/16/23 19:09> - Departure Departure Disposition: In-patient Admission <VIKA HARMAN - Last Filed: 12/16/23 22:19> - Departure Clinical Impression: Anemia, Chest pain, Leukocytosis, Shoulder subluxation, right Condition: Fair Referrals: MALORIE LUX MD [Primary Care Provider] - Follow up/PCP as directed
[2023-12-16] MEDS ORDERED: Hydromorphone 1 mg/ml Injection ONE ×3 (17:14→22:25)
[2023-12-16] MEDS ORDERED: Zofran 4 MG/2 ML VIAL ONE (17:14)
[2023-12-16] MEDS: Sodium Chloride 0.9% 1000 ML 1,000 ML IV SCH (17:31)
[2023-12-16] MEDS: Zofran 4 MG/2 ML VIAL IV ONE (17:33)
[2023-12-16] MEDS: Hydromorphone 1 mg/ml Injection IV ONE ×3 (17:34→22:27)
[2023-12-16 17:43] LABS: Absolute Neutrophil Ct (ANC) 11.61 x10^3/uL (1.56-6.13); BASOPHIL % 0.3 % (0.1-1.2); Basophil (Absolute #) 0.04 x10^3/uL (0.01-0.08); Eosinophil % 1.3 % (0.7-5.8); Eosinophil (Absolute #) 0.19 x10^3/uL (0.04-0.36); Hematocrit 22.5 % (34.1-44.9); IMMATURE GRAN # 0.17 x10^3u/L (0.001-0.031); IMMATURE GRAN % 1.2 % (0.001-0.429); Lymphocyte (Absolute #) 1.68 x10^3/uL (1.18-3.74); Lymphocytes % 11.6 % (19.3-51.7); Mean Cell Volume 90.4 fL (79.4-94.8); Mean Corpuscular Hemoglobin 27.3 pg (25.6-32.2); Mean Corpuscular Hgb Concent. 30.2 g/dL (32.2-35.5); Mean Platelet Volume 8.9 fL (9.4-12.3); Monocyte (Absolute #) 0.74 x10^3/uL (0.24-0.86); Monocytes % 5.1 % (4.7-12.5); Neutrophil % 80.5 % (34.0-71.1); Platelet Count 523 x10^3/uL (182-369); Red Blood Count 2.49 x10^6/uL (3.93-5.22); Red Cell Distribution Width 16.9 % (11.7-14.4); White Blood Count 14.4 x10^3/uL (3.98-10.04)
[2023-12-16 17:51] LABS: Hemoglobin 6.8 g/dL (11.2-15.7)
[2023-12-16 17:55] LABS: ALBUMIN 3.1 g/dL (3.5-5.0); BILIRUBIN,TOTAL 0.3 mg/dL (0.2-1.3); Calcium 9.1 mg/dL (8.4-10.2); Creatinine 1 0.81 mg/dL (0.52-1.04); EST GLOMERULAR FILTRATION RATE 86.2 ML/MIN; Potassium 3.7 mmol/L (3.5-5.1); Total Protein 7.5 g/dL (6.3-8.2)
[2023-12-16 18:07] LABS: Appearance Clear (Clear); Bacteria Rare /HPF (None Seen); Bilirubin Negative (Negative); Blood Negative (Negative); Epithelial Cells Moderate /HPF (None Seen); Glucose, Urine Negative (Negative); Hyaline Casts 0-2 /LPF (0-2); Ketones Negative (Negative); Leukocyte Esterase Trace (Negative); Nitrite Negative (Negative); Protein,Urine Dip 30 (Negative); RBC 0-2 /HPF (0-5); Specific Gravity 1.015 (1.005-1.030); Urobilinogen 0.2 mg/dL (0.2)
[2023-12-16 18:08] LABS: ADD URINE CULTURE? YES (NO)
[2023-12-16 19:35] LABS: ABO TYPING O; RH TYPING NEGATIVE
[2023-12-16 19:36] LABS: Antibody Screen NEGATIVE (NEGATIVE)
[2023-12-16 19:37] LABS: CROSS MATCH (PRBC) COMPATIBLE (COMPATIBLE)
[2023-12-16 19:39] LABS: CROSS MATCH (PRBC) COMPATIBLE (COMPATIBLE)
[2023-12-16] MEDS ORDERED: Zofran 4 MG/2 ML VIAL IV PRN (23:26)
--- NOTE | 2023-12-16 23:58 | PCM.HP ---
History of Present Illness - Chief Complaint Chief Complaint: DEBILITY Date: 12/16/23 History of Present Illness: is a 53 year old female with multiple medical problems, including an abdominal wound following a en exploratory laparotomy for a perforatred upper intestinal tract ulcer, recent hospitalization with obstructive uropathy (currently with a nephrostomy tube), and recent right shoulder injury, who presented to the hospital with right shoulder and chest pain. The patient has been on ciprofloxacin and flagyl, of note, since discharge. She was initially seen at [facility] then transferred to [facility] where the surgical procedure was performed. Postoperatively she was discharged to a rehab center in [place] and then recently was discharged to home. Today, she had complaints of shoulder pain on the right side which had been potentially attributed to movement/manipulation while hospitalized, but she denies any recent fall. In the ED, the patient was noted to have anasarca and anemia, for which transfusion was initiated. At the time of my evaluation, the patient's is at bedside to provide additional history. - Review of Systems Constitutional: No Symptoms Eyes: No Symptoms Ears, Nose, & Throat: No Symptoms Respiratory: No Symptoms Cardiac: Chest Pain, Edema Abdominal/Gastrointestinal: No Symptoms Genitourinary Symptoms: No Symptoms Musculoskeletal: No Symptoms, Joint Pain Skin: No Symptoms Neurological: No Symptoms Psychological: No Symptoms Endocrine: No Symptoms Hematologic/Lymphatic: No Symptoms Immunological/Allergic: No Symptoms All Other Systems: Reviewed and Negative Medications & Allergies Home Medications: Home Medication List Montelukast Sodium 10 mg [Singulair 10 MG] 10 mg PO HS 05/14/21 [History Confirmed 12/16/23] Ropinirole 2Mg [Requip 2Mg Tab] 4 mg PO HS 05/14/21 [History Confirmed 12/16/23] Ciprofloxacin HCl [Cipro] 500 mg PO BID 12/16/23 [History Confirmed 12/16/23] Insulin Glargine [Lantus Insulin] 30 unit SQ BID 12/16/23 [History Confirmed 12/16/23] Levothyroxine Sodium 100 Mcg [Synthroid 100 Mcg] 100 mcg PO HS 12/16/23 [History Confirmed 12/16/23] Meloxicam 15 mg [Meloxicam 15 MG] 15 mg PO HS 12/16/23 [History Confirmed 12/16/23] Metronidazole 500 mg [Flagyl 500 MG] 500 mg PO Q8H 12/16/23 [History Confirmed 12/16/23] Oxycodone HCl 5 mg Ir [Oxy-IR 5 MG] 10 mg PO Q6HPRN PRN 12/16/23 [History Confirmed 12/16/23] PANTOPRAZOLE 40 mg Tablet [Protonix 40MG Tablet] 40 mg PO BID 12/16/23 [History Confirmed 12/16/23] Allergies/Adverse Reactions: Allergies Allergy/AdvReac Type Severity Reaction Status Date / Time piperacillin Allergy Verified 12/16/23 16:35 sulfamethoxazole Allergy Verified 12/16/23 16:35 tazobactam Allergy Verified 12/16/23 16:35 trimethoprim Allergy Verified 12/16/23 16:35 - Past Medical History Past Medical History: Yes Neurological History: Migraines ENT History: No Pertinent History Cardiac History: No Pertinent History Respiratory History: Sleep Apnea Endocrine Medical History: No Pertinent History GI Medical History: GERD History: Other Pyscho-Social History: Depression Comment: brushite kidney stones,gout - Female History Hx Last Menstrual Period: menopausal Are you now?: No - Past Surgical History Past Surgical History: Yes Neuro Surgical History: No Pertinent History Cardiac History: No Pertinent History Respiratory Surgery: No Pertinent History GI Surgical History: No Pertinent History Genitourinary Surgical Hx: No Pertinent History, Other Musculskeletal Surgical Hx: No Pertinent History Female Surgical History: Tubal Ligation Other Surgical History: back surgery, kidney stone removal x 3, oopharectomy - Social History Smoking Status: Never smoker Exposure to second hand smoke: Yes Alcohol: None Drug Use: none - Social Determinants of Health Will the patient participate in the screening: Yes Do you worry about a steady place to live?: No Do you have any problems with any of the following?: No known problems In the past 12 months,have you had to go without utilities?: No Have you or anyone in your house had to go without enough: No Transportation Issues: No Has anyone in your support network made you feel unsafe?: No - Physical Exam Vital Signs: Vital Signs - 24 hr Temp Pulse Resp BP BP Pulse Ox 12/16/23 23:00 93 H 20 109/87 97 12/16/23 22:30 91 H 22 116/75 96 12/16/23 22:00 91 H 20 143/97 96 12/16/23 21:35 92 H 24 122/80 95 12/16/23 21:34 91 H 18 140/70 96 12/16/23 21:00 93 H 26 H 144/95 97 12/16/23 20:30 111 H 33 H 142/76 83 L 12/16/23 20:03 89 22 114/82 92 L 12/16/23 19:01 95 H 27 H 117/71 98 12/16/23 18:30 96 H 33 H 114/86 96 12/16/23 18:00 100 H 35 H 142/85 96 12/16/23 17:44 99 H 37 H 137/82 92 L 12/16/23 16:36 98.9 F 111 H 20 133/105 91 L 12/16/23 16:32 133/105 93 L General Appearance: no apparent distress, alert Neurologic Exam: alert, oriented x 3, cooperative, veneer layer II-XII nml as tested, normal mood/affect Eye Exam: PERRL/EOMI, eyes nml inspection Ears, Nose, Throat Exam: normal ENT inspection Neck Exam: normal inspection, non-tender, supple, full range of motion Respiratory Exam: normal breath sounds, lungs clear Cardiovascular Exam: regular rate/rhythm, normal heart sounds, edema Gastrointestinal/Abdomen Exam: soft, normal bowel sounds Back Exam: normal range of motion Extremity Exam: normal range of motion, pedal edema, swelling Skin Exam: normal color Results - Labs Lab/Micro Results: Lab Results-Last 24 Hours 12/16/23 12/16/23 12/16/23 Range/Units 17:12 17:30 17:30 WBC 14.4 H (3.98-10.04) x10^3/uL RBC 2.49 L (3.93-5.22) x10^6/uL Hgb 6.8 L* (11.2-15.7) g/dL Hct 22.5 L (34.1-44.9) % MCV 90.4 (79.4-94.8) fL MCH 27.3 (25.6-32.2) pg MCHC 30.2 L (32.2-35.5) g/dL RDW 16.9 H (11.7-14.4) % Plt Count 523 H (182-369) x10^3/uL MPV 8.9 L (9.4-12.3) fL Gran % 80.5 H (34.0-71.1) % Immature Gran % (Auto) 1.2 H (0.001-0.429) % Nucleat RBC Rel Count 0.0 (0.00-0.2) % Eos # (Auto) 0.19 (0.04-0.36) x10^3/uL Immature Gran # (Auto) 0.17 H (0.001-0.031) x10^3u/L Absolute Lymphs (auto) 1.68 (1.18-3.74) x10^3/uL Absolute Monos (auto) 0.74 (0.24-0.86) x10^3/uL Absolute Nucleated RBC 0.00 (0.00-0.012) x10^3u/L Lymphocytes % 11.6 L (19.3-51.7) % Monocytes % 5.1 (4.7-12.5) % Eosinophils % 1.3 (0.7-5.8) % Basophils % 0.3 (0.1-1.2) % Absolute Granulocytes 11.61 H (1.56-6.13) x10^3/uL Basophils # 0.04 (0.01-0.08) x10^3/uL D-Dimer (0.0-0.50) mg/L Sodium 136 (135-145) mmol/L Potassium 3.7 (3.5-5.1) mmol/L Chloride 100 (98-107) mmol/L Carbon Dioxide 28 (22-30) mmol/L Anion Gap 11.0 (5-15) MEQ/L BUN 16 (7-17) mg/dL Creatinine 0.81 (0.52-1.04) mg/dL Estimated GFR 86.2 ML/MIN Glucose 168 H (74-106) mg/dL Lactic Acid (0.4-2.0) Calcium 9.1 (8.4-10.2) mg/dL Total Bilirubin 0.30 (0.2-1.3) mg/dL AST 24 (14-36) U/L ALT 21 (0-35) U/L Alkaline Phosphatase 133 H (38-126) U/L Troponin I (0.000-0.033) ng/mL NT-Pro-B Natriuret Pep (<300) pg/mL Serum Total Protein 7.5 (6.3-8.2) g/dL Albumin 3.1 L (3.5-5.0) g/dL Amylase 59 (30-110) U/L Lipase 60 (23-300) U/L Urine Color Yellow (Yellow) Urine Appearance Clear (Clear) Urine pH 7.0 (4.6-8.0) Ur Specific [place] 1.015 (1.005-1.030) Urine Protein 30 (Negative) Urine Glucose (UA) Negative (Negative) mg/dL Urine Ketones Negative (Negative) Urine Blood Negative (Negative) Urine Nitrite Negative (Negative) Urine Bilirubin Negative (Negative) Urine Urobilinogen 0.2 (0.2) mg/dL Ur Leukocyte Esterase Trace A (Negative) U Hyaline Cast (Auto) 0-2 (0-2) /LPF Urine Microscopic RBC 0-2 (0-5) /HPF Urine Microscopic WBC 3-5 (0-5) /HPF Ur Epithelial Cells Moderate A (None Seen) /HPF Urine Bacteria Rare A (None Seen) /HPF Urine Culture Reflexed YES (NO) ABO Group Rh Factor Antibody Screen (NEGATIVE) Crossmatch (COMPATIBLE) 12/16/23 12/16/23 12/16/23 Range/Units 17:30 17:30 17:30 WBC (3.98-10.04) x10^3/uL RBC (3.93-5.22) x10^6/uL Hgb (11.2-15.7) g/dL Hct (34.1-44.9) % MCV (79.4-94.8) fL MCH (25.6-32.2) pg MCHC (32.2-35.5) g/dL RDW (11.7-14.4) % Plt Count (182-369) x10^3/uL MPV (9.4-12.3) fL Gran % (34.0-71.1) % Immature Gran % (Auto) (0.001-0.429) % Nucleat RBC Rel Count (0.00-0.2) % Eos # (Auto) (0.04-0.36) x10^3/uL Immature Gran # (Auto) (0.001-0.031) x10^3u/L Absolute Lymphs (auto) (1.18-3.74) x10^3/uL Absolute Monos (auto) (0.24-0.86) x10^3/uL Absolute Nucleated RBC (0.00-0.012) x10^3u/L Lymphocytes % (19.3-51.7) % Monocytes % (4.7-12.5) % Eosinophils % (0.7-5.8) % Basophils % (0.1-1.2) % Absolute Granulocytes (1.56-6.13) x10^3/uL Basophils # (0.01-0.08) x10^3/uL D-Dimer 20.49 H* (0.0-0.50) mg/L Sodium (135-145) mmol/L Potassium (3.5-5.1) mmol/L Chloride (98-107) mmol/L Carbon Dioxide (22-30) mmol/L Anion Gap (5-15) MEQ/L BUN (7-17) mg/dL Creatinine (0.52-1.04) mg/dL Estimated GFR ML/MIN Glucose (74-106) mg/dL Lactic Acid (0.4-2.0) Calcium (8.4-10.2) mg/dL Total Bilirubin (0.2-1.3) mg/dL AST (14-36) U/L ALT (0-35) U/L Alkaline Phosphatase (38-126) U/L Troponin I < 0.012 (0.000-0.033) ng/mL NT-Pro-B Natriuret Pep 269 (<300) pg/mL Serum Total Protein (6.3-8.2) g/dL Albumin (3.5-5.0) g/dL Amylase (30-110) U/L Lipase (23-300) U/L Urine Color (Yellow) Urine Appearance (Clear) Urine pH (4.6-8.0) Ur Specific [place] (1.005-1.030) Urine Protein (Negative) Urine Glucose (UA) (Negative) mg/dL Urine Ketones (Negative) Urine Blood (Negative) Urine Nitrite (Negative) Urine Bilirubin (Negative) Urine Urobilinogen (0.2) mg/dL Ur Leukocyte Esterase (Negative) U Hyaline Cast (Auto) (0-2) /LPF Urine Microscopic RBC (0-5) /HPF Urine Microscopic WBC (0-5) /HPF Ur Epithelial Cells (None Seen) /HPF Urine Bacteria (None Seen) /HPF Urine Culture Reflexed (NO) ABO Group Rh Factor Antibody Screen (NEGATIVE) Crossmatch (COMPATIBLE) 12/16/23 12/16/23 12/16/23 Range/Units 17:35 18:15 18:15 WBC (3.98-10.04) x10^3/uL RBC (3.93-5.22) x10^6/uL Hgb (11.2-15.7) g/dL Hct (34.1-44.9) % MCV (79.4-94.8) fL MCH (25.6-32.2) pg MCHC (32.2-35.5) g/dL RDW (11.7-14.4) % Plt Count (182-369) x10^3/uL MPV (9.4-12.3) fL Gran % (34.0-71.1) % Immature Gran % (Auto) (0.001-0.429) % Nucleat RBC Rel Count (0.00-0.2) % Eos # (Auto) (0.04-0.36) x10^3/uL Immature Gran # (Auto) (0.001-0.031) x10^3u/L Absolute Lymphs (auto) (1.18-3.74) x10^3/uL Absolute Monos (auto) (0.24-0.86) x10^3/uL Absolute Nucleated RBC (0.00-0.012) x10^3u/L Lymphocytes % (19.3-51.7) % Monocytes % (4.7-12.5) % Eosinophils % (0.7-5.8) % Basophils % (0.1-1.2) % Absolute Granulocytes (1.56-6.13) x10^3/uL Basophils # (0.01-0.08) x10^3/uL D-Dimer (0.0-0.50) mg/L Sodium (135-145) mmol/L Potassium (3.5-5.1) mmol/L Chloride (98-107) mmol/L Carbon Dioxide (22-30) mmol/L Anion Gap (5-15) MEQ/L BUN (7-17) mg/dL Creatinine (0.52-1.04) mg/dL Estimated GFR ML/MIN Glucose (74-106) mg/dL Lactic Acid 1.1 (0.4-2.0) Calcium (8.4-10.2) mg/dL Total Bilirubin (0.2-1.3) mg/dL AST (14-36) U/L ALT (0-35) U/L Alkaline Phosphatase (38-126) U/L Troponin I (0.000-0.033) ng/mL NT-Pro-B Natriuret Pep (<300) pg/mL Serum Total Protein (6.3-8.2) g/dL Albumin (3.5-5.0) g/dL Amylase (30-110) U/L Lipase (23-300) U/L Urine Color (Yellow) Urine Appearance (Clear) Urine pH (4.6-8.0) Ur Specific [place] (1.005-1.030) Urine Protein (Negative) Urine Glucose (UA) (Negative) mg/dL Urine Ketones (Negative) Urine Blood (Negative) Urine Nitrite (Negative) Urine Bilirubin (Negative) Urine Urobilinogen (0.2) mg/dL Ur Leukocyte Esterase (Negative) U Hyaline Cast (Auto) (0-2) /LPF Urine Microscopic RBC (0-5) /HPF Urine Microscopic WBC (0-5) /HPF Ur Epithelial Cells (None Seen) /HPF Urine Bacteria (None Seen) /HPF Urine Culture Reflexed (NO) ABO Group O Rh Factor NEGATIVE Antibody Screen NEGATIVE (NEGATIVE) Crossmatch COMPATIBLE COMPATIBLE (COMPATIBLE) 12/16/23 Range/Units 21:05 WBC (3.98-10.04) x10^3/uL RBC (3.93-5.22) x10^6/uL Hgb (11.2-15.7) g/dL Hct (34.1-44.9) % MCV (79.4-94.8) fL MCH (25.6-32.2) pg MCHC (32.2-35.5) g/dL RDW (11.7-14.4) % Plt Count (182-369) x10^3/uL MPV (9.4-12.3) fL Gran % (34.0-71.1) % Immature Gran % (Auto) (0.001-0.429) % Nucleat RBC Rel Count (0.00-0.2) % Eos # (Auto) (0.04-0.36) x10^3/uL Immature Gran # (Auto) (0.001-0.031) x10^3u/L Absolute Lymphs (auto) (1.18-3.74) x10^3/uL Absolute Monos (auto) (0.24-0.86) x10^3/uL Absolute Nucleated RBC (0.00-0.012) x10^3u/L Lymphocytes % (19.3-51.7) % Monocytes % (4.7-12.5) % Eosinophils % (0.7-5.8) % Basophils % (0.1-1.2) % Absolute Granulocytes (1.56-6.13) x10^3/uL Basophils # (0.01-0.08) x10^3/uL D-Dimer (0.0-0.50) mg/L Sodium (135-145) mmol/L Potassium (3.5-5.1) mmol/L Chloride (98-107) mmol/L Carbon Dioxide (22-30) mmol/L Anion Gap (5-15) MEQ/L BUN (7-17) mg/dL Creatinine (0.52-1.04) mg/dL Estimated GFR ML/MIN Glucose (74-106) mg/dL Lactic Acid (0.4-2.0) Calcium (8.4-10.2) mg/dL Total Bilirubin (0.2-1.3) mg/dL AST (14-36) U/L ALT (0-35) U/L Alkaline Phosphatase (38-126) U/L Troponin I < 0.012 (0.000-0.033) ng/mL NT-Pro-B Natriuret Pep (<300) pg/mL Serum Total Protein (6.3-8.2) g/dL Albumin (3.5-5.0) g/dL Amylase (30-110) U/L Lipase (23-300) U/L Urine Color (Yellow) Urine Appearance (Clear) Urine pH (4.6-8.0) Ur Specific [place] (1.005-1.030) Urine Protein (Negative) Urine Glucose (UA) (Negative) mg/dL Urine Ketones (Negative) Urine Blood (Negative) Urine Nitrite (Negative) Urine Bilirubin (Negative) Urine Urobilinogen (0.2) mg/dL Ur Leukocyte Esterase (Negative) U Hyaline Cast (Auto) (0-2) /LPF Urine Microscopic RBC (0-5) /HPF Urine Microscopic WBC (0-5) /HPF Ur Epithelial Cells (None Seen) /HPF Urine Bacteria (None Seen) /HPF Urine Culture Reflexed (NO) ABO Group Rh Factor Antibody Screen (NEGATIVE) Crossmatch (COMPATIBLE) - Radiology Impressions Radiology Exams & Impressions: Radiology Procedures Category Date Time Status ABDOMEN AND PELVIS W/0 CONTRAS [CT] Stat Exams 12/16/23 18:50 Taken CHEST WITH CONTRAST [CT] Stat Exams 12/16/23 18:49 Taken ECHO W/2D AND DOPPLER [US] Routine Exams 12/16/23 23:30 Ordered SHOULDER Stat Exams 12/16/23 17:16 Taken - Other Procedures and Tests Respiratory Therapy 12/16/23 23:07 Respiratory Therapy Consult ONCE 12/16/23 23:26 EKG REPEAT IN AM Assessment/Plan (1) Anemia Current Visit: Yes Status: Acute Assessment & Plan: Transfuse. No report of GI blood loss. Monitor counts. Code(s): D64.9 - ANEMIA, UNSPECIFIED (2) Chest pain Current Visit: Yes Status: Acute Assessment & Plan: No CAD history. Troponin and EKG negative. Serial cardiac enzyme on tele with repeat AM EKG. Will hold off on administering antiplatelet medication due to the patient's anemia and unclear etiology for now. Code(s): R07.9 - CHEST PAIN, UNSPECIFIED (3) Leukocytosis Current Visit: Yes Status: Acute Assessment & Plan: On cipro and flagyl. No fevers noted. UA unremarkable. No exudate from wound. Wound care and trend WBC count. Code(s): D72.829 - ELEVATED WHITE BLOOD CELL COUNT, UNSPECIFIED (4) Shoulder subluxation, right Current Visit: Yes Status: Acute Assessment & Plan: ED contacted ortho for recommendations. For now will place right shoulder in sling. If cleared by ortho, may need OT evaluation. Code(s): S43.001A - UNSPECIFIED SUBLUXATION OF RIGHT SHOULDER JOINT, INIT ENCNTR (5) Anasarca Current Visit: Yes Status: Acute Assessment & Plan: No history of CAD or CHF. Will obtain ECHO. IV Lasix to be administered. Possibly due to poor mobilization and recent extensive hospitalization. Code(s): R60.1 - GENERALIZED EDEMA Telemedicine Encounter - Telemedicine Encounter Telemedicine Encounter: "The entirety of this encounter was performed via Telemedicine" This visit was performed using real-time audio and video connection between my location and thepatients locationwith the assistance of a surrogateat the patients location. Written or verbal consent was obtained from the patient/guardian to perform this visit usingsynchrIdeal Powertelemedicine technology. Any patient questions regarding the telemedicine interaction were answered.
[2023-12-17] MEDS ORDERED: REQUIP 2MG TAB ONE (00:26)
[2023-12-17] MEDS: REQUIP 2MG TAB PO SCH ×2 (00:42→21:34)
[2023-12-17] MEDS: Flagyl 500 MG PO SCH ×2 (00:43→08:18)
[2023-12-17] MEDS ORDERED: SYNTHROID 100 MCG ONE (00:45)
[2023-12-17] MEDS: SYNTHROID 100 MCG PO SCH ×2 (00:46→21:34)
[2023-12-17] MEDS: Lasix 40 MG/4 ML IV SCH ×2 (01:28→10:55)
[2023-12-17] MEDS: Oxy-IR 5 MG PO PRN (02:30)
[2023-12-17 02:46] LABS: Hematocrit 28.4 % (34.1-44.9)
[2023-12-17 02:51] LABS: Hemoglobin 8.6 g/dL (11.2-15.7)
[2023-12-17 04:55] LABS: Absolute Neutrophil Ct (ANC) 10.04 x10^3/uL (1.56-6.13); BASOPHIL % 0.2 % (0.1-1.2); Basophil (Absolute #) 0.03 x10^3/uL (0.01-0.08); Eosinophil % 1.6 % (0.7-5.8); Eosinophil (Absolute #) 0.21 x10^3/uL (0.04-0.36); Hematocrit 27.3 % (34.1-44.9); Hemoglobin 8.3 g/dL (11.2-15.7); IMMATURE GRAN # 0.16 x10^3u/L (0.001-0.031); IMMATURE GRAN % 1.2 % (0.001-0.429); Lymphocyte (Absolute #) 1.73 x10^3/uL (1.18-3.74); Lymphocytes % 13.4 % (19.3-51.7); Mean Cell Volume 90.1 fL (79.4-94.8); Mean Corpuscular Hemoglobin 27.4 pg (25.6-32.2); Mean Corpuscular Hgb Concent. 30.4 g/dL (32.2-35.5); Mean Platelet Volume 8.9 fL (9.4-12.3); Monocyte (Absolute #) 0.77 x10^3/uL (0.24-0.86); Neutrophil % 77.6 % (34.0-71.1); Platelet Count 420 x10^3/uL (182-369); Red Blood Count 3.03 x10^6/uL (3.93-5.22); Red Cell Distribution Width 16.6 % (11.7-14.4); White Blood Count 12.9 x10^3/uL (3.98-10.04)
[2023-12-17 05:18] LABS: ANION GAP 12.2 MEQ/L (5-15); Calcium 8.9 mg/dL (8.4-10.2); Creatinine 1 0.82 mg/dL (0.52-1.04); PREALBUMIN 9.13 mg/dL (17.6-36.0); Potassium 3.9 mmol/L (3.5-5.1)
--- NOTE | 2023-12-17 07:58 | PCM.CONS ---
History of Present Illness - Consult Date of Consultation Date: 12/17/23 Reason for Consult: Right shoulder pain Consulting Provider: JEISON LEIGH MD - [facility] History of Present Illness: is a 53 year old female.[id number] with right shoulder pain and weakness since November 12 when she was admitted to [facility] in [facility], [place] And treated for kidney stones with right and left nephrosto my tubes and was also found to have a perforated intestinal ulcer which was oversewn. She says she was unconscious for most of this time and when she awoke she had pain in her right shoulder and was unable to reach overhead. She had no prior problems the shoulder. She says the pain can be severe. It is mainly lateral. No numbness or tingling.She was admitted last night and there is a question of subluxation of the shoulder on x-ray but appears located on CT scan of her chest.She is not having fevers or chills.She does have some chest pain and some shortness of air. She is on oxygen 2 L right now. Patient also has diabetes and hypothyroidism andSays she was told she may have some mild CHF. 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 Medications & Allergies Home Medications: Home Medication List Montelukast Sodium 10 mg [Singulair 10 MG] 10 mg PO HS 05/14/21 [History Confirmed 12/16/23] Ropinirole 2Mg [Requip 2Mg Tab] 4 mg PO HS 05/14/21 [History Confirmed 12/16/23] Ciprofloxacin HCl [Cipro] 500 mg PO BID 12/16/23 [History Confirmed 12/16/23] Insulin Glargine [Lantus Insulin] 30 unit SQ BID 12/16/23 [History Confirmed 12/16/23] Levothyroxine Sodium 100 Mcg [Synthroid 100 Mcg] 100 mcg PO HS 12/16/23 [History Confirmed 12/16/23] Meloxicam 15 mg [Meloxicam 15 MG] 15 mg PO HS 12/16/23 [History Confirmed 12/16/23] Metronidazole 500 mg [Flagyl 500 MG] 500 mg PO Q8H 12/16/23 [History Confirmed 12/16/23] Oxycodone HCl 5 mg Ir [Oxy-IR 5 MG] 10 mg PO Q6HPRN PRN 12/16/23 [History Confirmed 12/16/23] PANTOPRAZOLE 40 mg Tablet [Protonix 40MG Tablet] 40 mg PO BID 12/16/23 [History Confirmed 12/16/23] Allergies/Adverse Reactions: Allergies Allergy/AdvReac Type Severity Reaction Status Date / Time piperacillin Allergy Verified 12/17/23 00:16 sulfamethoxazole Allergy Verified 12/17/23 00:16 tazobactam Allergy Verified 12/17/23 00:16 trimethoprim Allergy Verified 12/17/23 00:16 - Past Medical History Past Medical History: Yes Neurological History: Migraines ENT History: No Pertinent History Cardiac History: No Pertinent History Respiratory History: Sleep Apnea Endocrine Medical History: No Pertinent History GI Medical History: GERD History: Other Pyscho-Social History: Depression Comment: brushite kidney stones,gout - Female History Hx Last Menstrual Period: menopausal Are you now?: No - Past Surgical History Past Surgical History: Yes Neuro Surgical History: No Pertinent History Cardiac History: No Pertinent History Respiratory Surgery: No Pertinent History GI Surgical History: No Pertinent History Genitourinary Surgical Hx: No Pertinent History, Other Musculskeletal Surgical Hx: No Pertinent History Female Surgical History: Tubal Ligation Other Surgical History: back surgery, kidney stone removal x 3, oopharectomy - Social History Smoking Status: Never smoker Exposure to second hand smoke: Yes Alcohol: None Drug Use: none - Social Determinants of Health Will the patient participate in the screening: Yes Do you worry about a steady place to live?: No Do you have any problems with any of the following?: No known problems In the past 12 months,have you had to go without utilities?: No Have you or anyone in your house had to go without enough: No Transportation Issues: No Has anyone in your support network made you feel unsafe?: No Does the patient want assistance with any of the above?: No - Nursing Vital Signs Nursing Vital Signs: Vital Signs - 24 hr Temp Pulse Resp BP BP Pulse Ox 12/17/23 06:38 95 12/17/23 04:00 97.0 F 97 H 18 95 12/17/23 00:53 91 H 18 96 12/17/23 00:00 93 L 12/16/23 23:22 97.6 F 95 H 18 133/75 93 L 12/16/23 23:00 93 H 20 109/87 97 12/16/23 22:30 91 H 22 116/75 96 12/16/23 22:00 91 H 20 143/97 96 12/16/23 21:35 92 H 24 122/80 95 12/16/23 21:34 91 H 18 140/70 96 12/16/23 21:00 93 H 26 H 144/95 97 12/16/23 20:30 111 H 33 H 142/76 83 L 12/16/23 20:03 89 22 114/82 92 L 12/16/23 19:01 95 H 27 H 117/71 98 12/16/23 18:30 96 H 33 H 114/86 96 12/16/23 18:00 100 H 35 H 142/85 96 12/16/23 17:44 99 H 37 H 137/82 92 L 12/16/23 16:36 98.9 F 111 H 20 133/105 91 L 12/16/23 16:32 133/105 93 L - Physical Exam SpO2: 95 - Narrative Narrative Physical Exam: Ortho Physical Exam Pleasant female, no apparent stress, alert and oriented x 3. Very obeseLying supine in bed with a sling on her right shoulder She has an IV in her right antecubital space. Right Shoulder shows no bruising swelling masses erythema. No atrophy Active flexion:10 Passive flexion:100 Active abduction:10 Passive abduction:90 Active external rotation:10 Passive external rotation:40 Active internal rotation: Yergason's Test: Speed's Test: Drop arm test: Flexion strength: /5 Abduction strength: 2/5 External rotation strength: 3/5 Internal rotation strength: 3/5 Biceps reflex: /4 Brachioradialis reflex: /4 Triceps reflex: /4 Cervical spine motion:Okay Bach reflex:Negative Radial pulse 2+ Good sensation distally 5/5 radial median and ulnar nerve function distally X-ray of right shoulder shows mild inferior subluxation on the AP view. Does not appear dislocated on CT scan or on Y view Assessment/Plan (1) Right shoulder pain Current Visit: Yes Status: Acute Assessment & Plan: Possible rotator cuff Strain or tear. Plan: Will obtain MRI of the shoulder. If she has rotator cuff tear may need rotator cuff tear repair which she has recovered from her kidney stones and ulcer.Patient understands risk include bleeding, infection, damage to nerves or vessels, possible stiffness, possible need for further surgery, possible inability to completely repair, rerupture and the risk of medical or anesthetic complications clean the risk of . Patient wishes to proceed with surgery.If an effusion is seen, may have interventional radiology aspirate shoulder for culture. Will likely start physical therapy after MRI. Code(s): M25.511 - PAIN IN RIGHT SHOULDER Results - Labs Lab/Micro Results: Lab Results-Last 24 Hours 12/16/23 12/16/23 12/16/23 Range/Units 17:12 17:30 17:30 WBC 14.4 H (3.98-10.04) x10^3/uL RBC 2.49 L (3.93-5.22) x10^6/uL Hgb 6.8 L* (11.2-15.7) g/dL Hct 22.5 L (34.1-44.9) % MCV 90.4 (79.4-94.8) fL MCH 27.3 (25.6-32.2) pg MCHC 30.2 L (32.2-35.5) g/dL RDW 16.9 H (11.7-14.4) % Plt Count 523 H (182-369) x10^3/uL MPV 8.9 L (9.4-12.3) fL Gran % 80.5 H (34.0-71.1) % Immature Gran % (Auto) 1.2 H (0.001-0.429) % Nucleat RBC Rel Count 0.0 (0.00-0.2) % Eos # (Auto) 0.19 (0.04-0.36) x10^3/uL Immature Gran # (Auto) 0.17 H (0.001-0.031) x10^3u/L Absolute Lymphs (auto) 1.68 (1.18-3.74) x10^3/uL Absolute Monos (auto) 0.74 (0.24-0.86) x10^3/uL Absolute Nucleated RBC 0.00 (0.00-0.012) x10^3u/L Lymphocytes % 11.6 L (19.3-51.7) % Monocytes % 5.1 (4.7-12.5) % Eosinophils % 1.3 (0.7-5.8) % Basophils % 0.3 (0.1-1.2) % Absolute Granulocytes 11.61 H (1.56-6.13) x10^3/uL Basophils # 0.04 (0.01-0.08) x10^3/uL D-Dimer (0.0-0.50) mg/L Sodium 136 (135-145) mmol/L Potassium 3.7 (3.5-5.1) mmol/L Chloride 100 (98-107) mmol/L Carbon Dioxide 28 (22-30) mmol/L Anion Gap 11.0 (5-15) MEQ/L BUN 16 (7-17) mg/dL Creatinine 0.81 (0.52-1.04) mg/dL Estimated GFR 86.2 ML/MIN Glucose 168 H (74-106) mg/dL POC Glucometer (74 to 106) mg/dL Lactic Acid (0.4-2.0) Calcium 9.1 (8.4-10.2) mg/dL Total Bilirubin 0.30 (0.2-1.3) mg/dL AST 24 (14-36) U/L ALT 21 (0-35) U/L Alkaline Phosphatase 133 H (38-126) U/L Troponin I (0.000-0.033) ng/mL NT-Pro-B Natriuret Pep (<300) pg/mL Serum Total Protein 7.5 (6.3-8.2) g/dL Albumin 3.1 L (3.5-5.0) g/dL Prealbumin (17.6-36.0) mg/dL Amylase 59 (30-110) U/L Lipase 60 (23-300) U/L Urine Color Yellow (Yellow) Urine Appearance Clear (Clear) Urine pH 7.0 (4.6-8.0) Ur Specific Aragon 1.015 (1.005-1.030) Urine Protein 30 (Negative) Urine Glucose (UA) Negative (Negative) mg/dL Urine Ketones Negative (Negative) Urine Blood Negative (Negative) Urine Nitrite Negative (Negative) Urine Bilirubin Negative (Negative) Urine Urobilinogen 0.2 (0.2) mg/dL Ur Leukocyte Esterase Trace A (Negative) U Hyaline Cast (Auto) 0-2 (0-2) /LPF Urine Microscopic RBC 0-2 (0-5) /HPF Urine Microscopic WBC 3-5 (0-5) /HPF Ur Epithelial Cells Moderate A (None Seen) /HPF Urine Bacteria Rare A (None Seen) /HPF Urine Culture Reflexed YES (NO) ABO Group Rh Factor Antibody Screen (NEGATIVE) Crossmatch (COMPATIBLE) 12/16/23 12/16/23 12/16/23 Range/Units 17:30 17:30 17:30 WBC (3.98-10.04) x10^3/uL RBC (3.93-5.22) x10^6/uL Hgb (11.2-15.7) g/dL Hct (34.1-44.9) % MCV (79.4-94.8) fL MCH (25.6-32.2) pg MCHC (32.2-35.5) g/dL RDW (11.7-14.4) % Plt Count (182-369) x10^3/uL MPV (9.4-12.3) fL Gran % (34.0-71.1) % Immature Gran % (Auto) (0.001-0.429) % Nucleat RBC Rel Count (0.00-0.2) % Eos # (Auto) (0.04-0.36) x10^3/uL Immature Gran # (Auto) (0.001-0.031) x10^3u/L Absolute Lymphs (auto) (1.18-3.74) x10^3/uL Absolute Monos (auto) (0.24-0.86) x10^3/uL Absolute Nucleated RBC (0.00-0.012) x10^3u/L Lymphocytes % (19.3-51.7) % Monocytes % (4.7-12.5) % Eosinophils % (0.7-5.8) % Basophils % (0.1-1.2) % Absolute Granulocytes (1.56-6.13) x10^3/uL Basophils # (0.01-0.08) x10^3/uL D-Dimer 20.49 H* (0.0-0.50) mg/L Sodium (135-145) mmol/L Potassium (3.5-5.1) mmol/L Chloride (98-107) mmol/L Carbon Dioxide (22-30) mmol/L Anion Gap (5-15) MEQ/L BUN (7-17) mg/dL Creatinine (0.52-1.04) mg/dL Estimated GFR ML/MIN Glucose (74-106) mg/dL POC Glucometer (74 to 106) mg/dL Lactic Acid (0.4-2.0) Calcium (8.4-10.2) mg/dL Total Bilirubin (0.2-1.3) mg/dL AST (14-36) U/L ALT (0-35) U/L Alkaline Phosphatase (38-126) U/L Troponin I < 0.012 (0.000-0.033) ng/mL NT-Pro-B Natriuret Pep 269 (<300) pg/mL Serum Total Protein (6.3-8.2) g/dL Albumin (3.5-5.0) g/dL Prealbumin (17.6-36.0) mg/dL Amylase (30-110) U/L Lipase (23-300) U/L Urine Color (Yellow) Urine Appearance (Clear) Urine pH (4.6-8.0) Ur Specific Aragon (1.005-1.030) Urine Protein (Negative) Urine Glucose (UA) (Negative) mg/dL Urine Ketones (Negative) Urine Blood (Negative) Urine Nitrite (Negative) Urine Bilirubin (Negative) Urine Urobilinogen (0.2) mg/dL Ur Leukocyte Esterase (Negative) U Hyaline Cast (Auto) (0-2) /LPF Urine Microscopic RBC (0-5) /HPF Urine Microscopic WBC (0-5) /HPF Ur Epithelial Cells (None Seen) /HPF Urine Bacteria (None Seen) /HPF Urine Culture Reflexed (NO) ABO Group Rh Factor Antibody Screen (NEGATIVE) Crossmatch (COMPATIBLE) 12/16/23 12/16/23 12/16/23 Range/Units 17:35 18:15 18:15 WBC (3.98-10.04) x10^3/uL RBC (3.93-5.22) x10^6/uL Hgb (11.2-15.7) g/dL Hct (34.1-44.9) % MCV (79.4-94.8) fL MCH (25.6-32.2) pg MCHC (32.2-35.5) g/dL RDW (11.7-14.4) % Plt Count (182-369) x10^3/uL MPV (9.4-12.3) fL Gran % (34.0-71.1) % Immature Gran % (Auto) (0.001-0.429) % Nucleat RBC Rel Count (0.00-0.2) % Eos # (Auto) (0.04-0.36) x10^3/uL Immature Gran # (Auto) (0.001-0.031) x10^3u/L Absolute Lymphs (auto) (1.18-3.74) x10^3/uL Absolute Monos (auto) (0.24-0.86) x10^3/uL Absolute Nucleated RBC (0.00-0.012) x10^3u/L Lymphocytes % (19.3-51.7) % Monocytes % (4.7-12.5) % Eosinophils % (0.7-5.8) % Basophils % (0.1-1.2) % Absolute Granulocytes (1.56-6.13) x10^3/uL Basophils # (0.01-0.08) x10^3/uL D-Dimer (0.0-0.50) mg/L Sodium (135-145) mmol/L Potassium (3.5-5.1) mmol/L Chloride (98-107) mmol/L Carbon Dioxide (22-30) mmol/L Anion Gap (5-15) MEQ/L BUN (7-17) mg/dL Creatinine (0.52-1.04) mg/dL Estimated GFR ML/MIN Glucose (74-106) mg/dL POC Glucometer (74 to 106) mg/dL Lactic Acid 1.1 (0.4-2.0) Calcium (8.4-10.2) mg/dL Total Bilirubin (0.2-1.3) mg/dL AST (14-36) U/L ALT (0-35) U/L Alkaline Phosphatase (38-126) U/L Troponin I (0.000-0.033) ng/mL NT-Pro-B Natriuret Pep (<300) pg/mL Serum Total Protein (6.3-8.2) g/dL Albumin (3.5-5.0) g/dL Prealbumin (17.6-36.0) mg/dL Amylase (30-110) U/L Lipase (23-300) U/L Urine Color (Yellow) Urine Appearance (Clear) Urine pH (4.6-8.0) Ur Specific Aragon (1.005-1.030) Urine Protein (Negative) Urine Glucose (UA) (Negative) mg/dL Urine Ketones (Negative) Urine Blood (Negative) Urine Nitrite (Negative) Urine Bilirubin (Negative) Urine Urobilinogen (0.2) mg/dL Ur Leukocyte Esterase (Negative) U Hyaline Cast (Auto) (0-2) /LPF Urine Microscopic RBC (0-5) /HPF Urine Microscopic WBC (0-5) /HPF Ur Epithelial Cells (None Seen) /HPF Urine Bacteria (None Seen) /HPF Urine Culture Reflexed (NO) ABO Group O Rh Factor NEGATIVE Antibody Screen NEGATIVE (NEGATIVE) Crossmatch COMPATIBLE COMPATIBLE (COMPATIBLE) 12/16/23 12/17/23 12/17/23 Range/Units 21:05 02:30 02:30 WBC (3.98-10.04) x10^3/uL RBC (3.93-5.22) x10^6/uL Hgb 8.6 L D (11.2-15.7) g/dL Hct 28.4 L (34.1-44.9) % MCV (79.4-94.8) fL MCH (25.6-32.2) pg MCHC (32.2-35.5) g/dL RDW (11.7-14.4) % Plt Count (182-369) x10^3/uL MPV (9.4-12.3) fL Gran % (34.0-71.1) % Immature Gran % (Auto) (0.001-0.429) % Nucleat RBC Rel Count (0.00-0.2) % Eos # (Auto) (0.04-0.36) x10^3/uL Immature Gran # (Auto) (0.001-0.031) x10^3u/L Absolute Lymphs (auto) (1.18-3.74) x10^3/uL Absolute Monos (auto) (0.24-0.86) x10^3/uL Absolute Nucleated RBC (0.00-0.012) x10^3u/L Lymphocytes % (19.3-51.7) % Monocytes % (4.7-12.5) % Eosinophils % (0.7-5.8) % Basophils % (0.1-1.2) % Absolute Granulocytes (1.56-6.13) x10^3/uL Basophils # (0.01-0.08) x10^3/uL D-Dimer (0.0-0.50) mg/L Sodium (135-145) mmol/L Potassium (3.5-5.1) mmol/L Chloride (98-107) mmol/L Carbon Dioxide (22-30) mmol/L Anion Gap (5-15) MEQ/L BUN (7-17) mg/dL Creatinine (0.52-1.04) mg/dL Estimated GFR ML/MIN Glucose (74-106) mg/dL POC Glucometer (74 to 106) mg/dL Lactic Acid (0.4-2.0) Calcium (8.4-10.2) mg/dL Total Bilirubin (0.2-1.3) mg/dL AST (14-36) U/L ALT (0-35) U/L Alkaline Phosphatase (38-126) U/L Troponin I < 0.012 < 0.012 (0.000-0.033) ng/mL NT-Pro-B Natriuret Pep (<300) pg/mL Serum Total Protein (6.3-8.2) g/dL Albumin (3.5-5.0) g/dL Prealbumin (17.6-36.0) mg/dL Amylase (30-110) U/L Lipase (23-300) U/L Urine Color (Yellow) Urine Appearance (Clear) Urine pH (4.6-8.0) Ur Specific Aragon (1.005-1.030) Urine Protein (Negative) Urine Glucose (UA) (Negative) mg/dL Urine Ketones (Negative) Urine Blood (Negative) Urine Nitrite (Negative) Urine Bilirubin (Negative) Urine Urobilinogen (0.2) mg/dL Ur Leukocyte Esterase (Negative) U Hyaline Cast (Auto) (0-2) /LPF Urine Microscopic RBC (0-5) /HPF Urine Microscopic WBC (0-5) /HPF Ur Epithelial Cells (None Seen) /HPF Urine Bacteria (None Seen) /HPF Urine Culture Reflexed (NO) ABO Group Rh Factor Antibody Screen (NEGATIVE) Crossmatch (COMPATIBLE) 12/17/23 12/17/23 12/17/23 Range/Units 04:43 04:43 07:26 WBC 12.9 H (3.98-10.04) x10^3/uL RBC 3.03 L (3.93-5.22) x10^6/uL Hgb 8.3 L (11.2-15.7) g/dL Hct 27.3 L (34.1-44.9) % MCV 90.1 (79.4-94.8) fL MCH 27.4 (25.6-32.2) pg MCHC 30.4 L (32.2-35.5) g/dL RDW 16.6 H (11.7-14.4) % Plt Count 420 H (182-369) x10^3/uL MPV 8.9 L (9.4-12.3) fL Gran % 77.6 H (34.0-71.1) % Immature Gran % (Auto) 1.2 H (0.001-0.429) % Nucleat RBC Rel Count 0.0 (0.00-0.2) % Eos # (Auto) 0.21 (0.04-0.36) x10^3/uL Immature Gran # (Auto) 0.16 H (0.001-0.031) x10^3u/L Absolute Lymphs (auto) 1.73 (1.18-3.74) x10^3/uL Absolute Monos (auto) 0.77 (0.24-0.86) x10^3/uL Absolute Nucleated RBC 0.00 (0.00-0.012) x10^3u/L Lymphocytes % 13.4 L (19.3-51.7) % Monocytes % 6.0 (4.7-12.5) % Eosinophils % 1.6 (0.7-5.8) % Basophils % 0.2 (0.1-1.2) % Absolute Granulocytes 10.04 H (1.56-6.13) x10^3/uL Basophils # 0.03 (0.01-0.08) x10^3/uL D-Dimer (0.0-0.50) mg/L Sodium 137 (135-145) mmol/L Potassium 3.9 (3.5-5.1) mmol/L Chloride 102 (98-107) mmol/L Carbon Dioxide 26 (22-30) mmol/L Anion Gap 12.2 (5-15) MEQ/L BUN 15 (7-17) mg/dL Creatinine 0.82 (0.52-1.04) mg/dL Estimated GFR 85.0 ML/MIN Glucose 200 H (74-106) mg/dL POC Glucometer 240 H (74 to 106) mg/dL Lactic Acid (0.4-2.0) Calcium 8.9 (8.4-10.2) mg/dL Total Bilirubin (0.2-1.3) mg/dL AST (14-36) U/L ALT (0-35) U/L Alkaline Phosphatase (38-126) U/L Troponin I (0.000-0.033) ng/mL NT-Pro-B Natriuret Pep 289 (<300) pg/mL Serum Total Protein (6.3-8.2) g/dL Albumin (3.5-5.0) g/dL Prealbumin 9.13 L (17.6-36.0) mg/dL Amylase (30-110) U/L Lipase (23-300) U/L Urine Color (Yellow) Urine Appearance (Clear) Urine pH (4.6-8.0) Ur Specific Aragon (1.005-1.030) Urine Protein (Negative) Urine Glucose (UA) (Negative) mg/dL Urine Ketones (Negative) Urine Blood (Negative) Urine Nitrite (Negative) Urine Bilirubin (Negative) Urine Urobilinogen (0.2) mg/dL Ur Leukocyte Esterase (Negative) U Hyaline Cast (Auto) (0-2) /LPF Urine Microscopic RBC (0-5) /HPF Urine Microscopic WBC (0-5) /HPF Ur Epithelial Cells (None Seen) /HPF Urine Bacteria (None Seen) /HPF Urine Culture Reflexed (NO) ABO Group Rh Factor Antibody Screen (NEGATIVE) Crossmatch (COMPATIBLE) Microbiology 12/16/23 17:13 Urine Culture - Preliminary Catherized NO GROWTH TO DATE - Radiology Impressions Radiology Exams & Impressions: Radiology Procedures Category Date Time Status ABDOMEN AND PELVIS W/0 CONTRAS [CT] Stat Exams 12/16/23 18:50 Taken CHEST WITH CONTRAST [CT] Stat Exams 12/16/23 18:49 Taken ECHO W/2D AND DOPPLER [US] Routine Exams 12/16/23 23:30 Ordered SHOULDER Stat Exams 12/16/23 17:16 Taken - Respiratory Respiratory Therapy 12/17/23 00:52 BiPap/CPAP ROUTINE 12/17/23 01:00 Oxygen Nasal Cannula 3 lpm
[2023-12-17] MEDS: HUMALOG SQ PRN (08:18)
--- NOTE | 2023-12-17 08:37 | XRAY ---
Indication: Pain. Comparison: December 22, 2011 3 view right shoulder demonstrates new osteopenia and new anterior inferior humeral head subluxation. No other bony, articular, or soft tissue abnormalities. Right shoulder appears normal on CT chest exam performed later in the day.
--- NOTE | 2023-12-17 08:41 | XRAY ---
Indication: Chest pain. Short of breath. Elevated d-dimer. Multiple contiguous axial images obtained through the chest using 100 cc Isovue 370 contrast and PE protocol. Comparison: None Poor opacification of the pulmonary arteries and respiration artifact limits evaluation for pulmonary embolus. No obvious central pulmonary embolus. Heart is borderline enlarged. No pericardial effusion/thickening. Aorta is normal in course and caliber. A few tiny right hilar calcified nodes. No pathologic mediastinal/hilar lymphadenopathy. Lungs demonstrates small bilateral effusions with bibasilar compressive atelectasis, left greater than right. Additional bilateral midlung subsegmental atelectasis/scarring and incidental small right upper lobe calcified granuloma. Bony thorax intact with minimal degenerative changes throughout the spine. CT abdomen/pelvis report separately. Impression: 1. Pulmonary embolus evaluation limited by suboptimal contrast opacification and respiration artifact. No obvious central pulmonary embolus. 2. Borderline cardiomegaly with small bilateral effusions. Rule out cardiac decomposition/CHF versus fluid overload. 3. Chronic findings including atelectasis/scarring, chronic bony findings, and old granulomatous disease.
--- NOTE | 2023-12-17 08:51 | XRAY ---
Indication: Abdominal pain. Leukocytosis. Recent peptic ulcer surgery. Multiple contiguous axial images obtained through the abdomen and pelvis without contrast. Comparison: May 14, 2021 CT chest reported separately. Abdominal wall demonstrates new midline presumed postsurgical wound without abnormal fluid collection. Also new left mid abdomen percutaneous feeding tube with tip in small bowel loop. New mild diffuse anasarca. Noncontrasted stomach and bowel loops appear nonobstructed. New moderate diffuse scattered colonic fecal debris throughout. New small perihepatic/perisplenic and pelvic free fluid. Right abdomen now demonstrates a few tiny free air bubbles. Again diffuse fatty liver. Left kidney is now mildly atrophic. There are again multiple bilateral renal micro-calculi, largest right lower pole measuring 1.3 cm. Remaining liver, gallbladder, pancreas, spleen, adrenal glands, kidneys, ureters, bladder, uterus, and aorta are unremarkable for noncontrast exam. Osseous structures intact with minimal degenerative changes throughout the spine. Right mid back demonstrates new percutaneous catheter with pigtail tip subcutaneous in location without focal solid/cystic mass or abnormal fluid collection. Impression: 1. New small abdominal and pelvic free fluid with tiny free air bubbles. Findings presumed postoperative given surgical history. 2. New left midabdomen percutaneous feeding tube with tip in small bowel loop. New right mid back percutaneous catheter with pigtail subcutaneous in location. 3. New mild diffuse anasarca. Given CT chest findings, rule out cardiac decompensation/CHF versus fluid overload. 4. New moderate diffuse fecal stasis. 5. New left renal atrophy. 6. Again chronic findings including fatty liver, nonobstructing bilateral renal micro-calculi, and chronic bony findings.
[2023-12-17] MEDS: Docusate Sodium 100 MG PO SCH (10:54)
[2023-12-17] MEDS: Lantus Insulin SQ SCH (10:54)
[2023-12-17] MEDS: Acidophilus TABLET PO SCH (10:54)
[2023-12-17] MEDS: Cipro 500 MG PO SCH (10:58)
--- NOTE | 2023-12-17 11:56 | PCM.NOTE ---
Date and Time: 12/17/23 1145 Subjective Assessment: 12/17/23 is a 53 year old female with PMHX of migraines, sleep apnea, GERD, depression, brushite kidney stones, and gout. She most recently had a bleeding ulcer, has an abdominal wound following an exploratory laparotomy for a perforatred upper intestinal tract ulcer, recent hospitalization with obstructive uropathy (currently with a nephrostomy tube), and recent right shoulder injury. She presented to the hospital on 12/16/23 with right shoulder and chest pain. The patient has been on ciprofloxacin and flagyl, of note, since discharge. She was initially seen at [facility] then transferred to [facility] where the surgical procedure was performed. Postoperatively she was discharged to a rehab center in [place] and then recently was discharged to home. On admission and today she had complaints of shoulder pain on the right side which had been potentially attributed to movement/manipulation while hospitalized, but she denies any recent fall. In the ED, the patient was noted to have anasarca and anemia, for which transfusion was initiated. She received 2 units of PRBC and today HGB is 8.3. She is c/o LUQ pain with palpation. Discussed CT and radilogy results in detail with pt and . Ortho consulted and recommended MRI of right shoulder. She has an ECHO that is pending. Lasix started IV Q12 for anasarca. She refused thismed last night as she did not want to be up all night urinating and wanted to sleep. Discussed constipation and pt states she is not despite discussing CT results. Stool softer added daily if she is wiling to take. Constipation most likely r/t narcotic pain medication. She has an appointment to f/u with Dr. Calloway, nephrology at [facility] December 19 for nephrostomy tube exchange. CP resolved, Trop x3 negative. D- dimer 20.49, CT negative for PE. She denies CP, SOB, N/V/D. - Review of Systems Constitutional: No Fever, No Chills Eyes: No Symptoms Ears, Nose, & Throat: No Symptoms Respiratory: No Cough, No Short Of Breath Cardiac: No Chest Pain, No Edema, No Syncope Abdominal/Gastrointestinal: Abdominal Pain (LUQ), No Nausea, No Vomiting, No Diarrhea Genitourinary Symptoms: No Dysuria Musculoskeletal: No Back Pain, No Neck Pain Skin: No Rash Neurological: Irritability, No Dizziness, No Focal Weakness, No Sensory Changes Psychological: No Symptoms, Emotional Lability Endocrine: No Symptoms Hematologic/Lymphatic: No Symptoms Immunological/Allergic: No Symptoms Objective Exam General Appearance: no apparent distress, alert, obese Neurologic Exam: alert, oriented x 3, cooperative, normal mood/affect, nml cerebellar function, sensation nml, No motor deficits Skin Exam: normal color, warm, dry, other (wound abd- chronic- see pics in chart) Wound Assessment: Skin/Wound Assessment Wound/Incision Assessment Start: 12/17/23 00:12 Text: Status: Active Freq: Q6H Protocol: Document 12/17/23 06:12 MM (Rec: 12/17/23 06:16 MM [id number]) Wound/Incision Assessment Medial Abdomen Wound Assessment Shift Assessment Wound Type Incision Wound Stage Non Pressure Wound Dressing Status Changed Drainage Amount None General Appearance Unapproximated Length (cm) (cm) 15 Width (cm) (cm) 8 Depth (cm) (cm) 1.5 Wound Bed Greatest Portion Red (Granulation) Wound Bed Lesser Portion Pale [place] Surrounding Tissue [place] Topical Solution/Irrigant Saline Irrigant Packing Type Gauze Pads Primary Dressing Absorbant Pad Comment pt had exploratory lap on , incision was left open to heal. pt previously had a wound vac but it was discontinued when she was discharged from the hospital. pt has been doing wet- to-dry dressings daily at home . pt dressing changed by this nurse, wound bed packed with gauze soaked with sterile saline and covered with an abd pad, secured with foam tape. photos taken and placed on chart, wound bed is dry, no drainage present, no odor, no swelling or redness noted. Wound Photo Photo Taken Yes Date: 12/17/23 Time: 00:45 Eye Exam: PERRL, EOMI, eyes nml inspection Ears, Nose, Throat Exam: normal ENT inspection, pharynx normal, moist mucous membranes Neck Exam: normal inspection, non-tender, supple, full range of motion Respiratory Exam: normal breath sounds, lungs clear, No respiratory distress Cardiovascular Exam: regular rate/rhythm, normal heart sounds Gastrointestinal/Abdomen Exam: soft, tenderness (LUQ with palpation), distention, No mass Extremity Exam: normal inspection, normal range of motion Back Exam: normal inspection, normal range of motion, No CVA tenderness, No vertebral tenderness Pelvic Exam: deferred Rectal Exam: deferred Objective Data Vital Signs: Vital Signs - 24 hr Temp Pulse Resp BP BP Pulse Ox 12/17/23 08:00 97.2 F 87 18 128/66 98 12/17/23 07:59 95 12/17/23 06:38 95 12/17/23 04:00 97.0 F 97 H 18 95 12/17/23 00:53 91 H 18 96 12/17/23 00:00 93 L 12/16/23 23:22 97.6 F 95 H 18 133/75 93 L 12/16/23 23:00 93 H 20 109/87 97 12/16/23 22:30 91 H 22 116/75 96 12/16/23 22:00 91 H 20 143/97 96 12/16/23 21:35 92 H 24 122/80 95 12/16/23 21:34 91 H 18 140/70 96 12/16/23 21:00 93 H 26 H 144/95 97 12/16/23 20:30 111 H 33 H 142/76 83 L 12/16/23 20:03 89 22 114/82 92 L 12/16/23 19:01 95 H 27 H 117/71 98 12/16/23 18:30 96 H 33 H 114/86 96 12/16/23 18:00 100 H 35 H 142/85 96 12/16/23 17:44 99 H 37 H 137/82 92 L 12/16/23 16:36 98.9 F 111 H 20 133/105 91 L 12/16/23 16:32 133/105 93 L Pain Assessment - Last Documented Pain Intensity 7 Pain Scale Used 0-10 Pain Scale Intake and Output: Intake & Output 12/14/23 12/15/23 12/16/23 12/17/23 11:59 11:59 11:59 11:59 Intake Total 710 Balance 710 Weight 110.1 kg Lab Results: Lab Results-Last 24 Hours 12/16/23 12/16/23 12/16/23 Range/Units 17:12 17:30 17:30 WBC 14.4 H (3.98-10.04) x10^3/uL RBC 2.49 L (3.93-5.22) x10^6/uL Hgb 6.8 L* (11.2-15.7) g/dL Hct 22.5 L (34.1-44.9) % MCV 90.4 (79.4-94.8) fL MCH 27.3 (25.6-32.2) pg MCHC 30.2 L (32.2-35.5) g/dL RDW 16.9 H (11.7-14.4) % Plt Count 523 H (182-369) x10^3/uL MPV 8.9 L (9.4-12.3) fL Gran % 80.5 H (34.0-71.1) % Immature Gran % (Auto) 1.2 H (0.001-0.429) % Nucleat RBC Rel Count 0.0 (0.00-0.2) % Eos # (Auto) 0.19 (0.04-0.36) x10^3/uL Immature Gran # (Auto) 0.17 H (0.001-0.031) x10^3u/L Absolute Lymphs (auto) 1.68 (1.18-3.74) x10^3/uL Absolute Monos (auto) 0.74 (0.24-0.86) x10^3/uL Absolute Nucleated RBC 0.00 (0.00-0.012) x10^3u/L Lymphocytes % 11.6 L (19.3-51.7) % Monocytes % 5.1 (4.7-12.5) % Eosinophils % 1.3 (0.7-5.8) % Basophils % 0.3 (0.1-1.2) % Absolute Granulocytes 11.61 H (1.56-6.13) x10^3/uL Basophils # 0.04 (0.01-0.08) x10^3/uL ESR (0-20) mm/hr D-Dimer (0.0-0.50) mg/L Sodium 136 (135-145) mmol/L Potassium 3.7 (3.5-5.1) mmol/L Chloride 100 (98-107) mmol/L Carbon Dioxide 28 (22-30) mmol/L Anion Gap 11.0 (5-15) MEQ/L BUN 16 (7-17) mg/dL Creatinine 0.81 (0.52-1.04) mg/dL Estimated GFR 86.2 ML/MIN Glucose 168 H (74-106) mg/dL POC Glucometer (74 to 106) mg/dL Hemoglobin A1c (4.5-6.0) % Lactic Acid (0.4-2.0) Calcium 9.1 (8.4-10.2) mg/dL Total Bilirubin 0.30 (0.2-1.3) mg/dL AST 24 (14-36) U/L ALT 21 (0-35) U/L Alkaline Phosphatase 133 H (38-126) U/L Troponin I (0.000-0.033) ng/mL NT-Pro-B Natriuret Pep (<300) pg/mL Serum Total Protein 7.5 (6.3-8.2) g/dL Albumin 3.1 L (3.5-5.0) g/dL Prealbumin (17.6-36.0) mg/dL Amylase 59 (30-110) U/L Lipase 60 (23-300) U/L Urine Color Yellow (Yellow) Urine Appearance Clear (Clear) Urine pH 7.0 (4.6-8.0) Ur Specific [place] 1.015 (1.005-1.030) Urine Protein 30 (Negative) Urine Glucose (UA) Negative (Negative) mg/dL Urine Ketones Negative (Negative) Urine Blood Negative (Negative) Urine Nitrite Negative (Negative) Urine Bilirubin Negative (Negative) Urine Urobilinogen 0.2 (0.2) mg/dL Ur Leukocyte Esterase Trace A (Negative) U Hyaline Cast (Auto) 0-2 (0-2) /LPF Urine Microscopic RBC 0-2 (0-5) /HPF Urine Microscopic WBC 3-5 (0-5) /HPF Ur Epithelial Cells Moderate A (None Seen) /HPF Urine Bacteria Rare A (None Seen) /HPF Urine Culture Reflexed YES (NO) ABO Group Rh Factor Antibody Screen (NEGATIVE) Crossmatch (COMPATIBLE) 12/16/23 12/16/23 12/16/23 Range/Units 17:30 17:30 17:30 WBC (3.98-10.04) x10^3/uL RBC (3.93-5.22) x10^6/uL Hgb (11.2-15.7) g/dL Hct (34.1-44.9) % MCV (79.4-94.8) fL MCH (25.6-32.2) pg MCHC (32.2-35.5) g/dL RDW (11.7-14.4) % Plt Count (182-369) x10^3/uL MPV (9.4-12.3) fL Gran % (34.0-71.1) % Immature Gran % (Auto) (0.001-0.429) % Nucleat RBC Rel Count (0.00-0.2) % Eos # (Auto) (0.04-0.36) x10^3/uL Immature Gran # (Auto) (0.001-0.031) x10^3u/L Absolute Lymphs (auto) (1.18-3.74) x10^3/uL Absolute Monos (auto) (0.24-0.86) x10^3/uL Absolute Nucleated RBC (0.00-0.012) x10^3u/L Lymphocytes % (19.3-51.7) % Monocytes % (4.7-12.5) % Eosinophils % (0.7-5.8) % Basophils % (0.1-1.2) % Absolute Granulocytes (1.56-6.13) x10^3/uL Basophils # (0.01-0.08) x10^3/uL ESR (0-20) mm/hr D-Dimer 20.49 H* (0.0-0.50) mg/L Sodium (135-145) mmol/L Potassium (3.5-5.1) mmol/L Chloride (98-107) mmol/L Carbon Dioxide (22-30) mmol/L Anion Gap (5-15) MEQ/L BUN (7-17) mg/dL Creatinine (0.52-1.04) mg/dL Estimated GFR ML/MIN Glucose (74-106) mg/dL POC Glucometer (74 to 106) mg/dL Hemoglobin A1c (4.5-6.0) % Lactic Acid (0.4-2.0) Calcium (8.4-10.2) mg/dL Total Bilirubin (0.2-1.3) mg/dL AST (14-36) U/L ALT (0-35) U/L Alkaline Phosphatase (38-126) U/L Troponin I < 0.012 (0.000-0.033) ng/mL NT-Pro-B Natriuret Pep 269 (<300) pg/mL Serum Total Protein (6.3-8.2) g/dL Albumin (3.5-5.0) g/dL Prealbumin (17.6-36.0) mg/dL Amylase (30-110) U/L Lipase (23-300) U/L Urine Color (Yellow) Urine Appearance (Clear) Urine pH (4.6-8.0) Ur Specific [place] (1.005-1.030) Urine Protein (Negative) Urine Glucose (UA) (Negative) mg/dL Urine Ketones (Negative) Urine Blood (Negative) Urine Nitrite (Negative) Urine Bilirubin (Negative) Urine Urobilinogen (0.2) mg/dL Ur Leukocyte Esterase (Negative) U Hyaline Cast (Auto) (0-2) /LPF Urine Microscopic RBC (0-5) /HPF Urine Microscopic WBC (0-5) /HPF Ur Epithelial Cells (None Seen) /HPF Urine Bacteria (None Seen) /HPF Urine Culture Reflexed (NO) ABO Group Rh Factor Antibody Screen (NEGATIVE) Crossmatch (COMPATIBLE) 12/16/23 12/16/23 12/16/23 Range/Units 17:35 18:15 18:15 WBC (3.98-10.04) x10^3/uL RBC (3.93-5.22) x10^6/uL Hgb (11.2-15.7) g/dL Hct (34.1-44.9) % MCV (79.4-94.8) fL MCH (25.6-32.2) pg MCHC (32.2-35.5) g/dL RDW (11.7-14.4) % Plt Count (182-369) x10^3/uL MPV (9.4-12.3) fL Gran % (34.0-71.1) % Immature Gran % (Auto) (0.001-0.429) % Nucleat RBC Rel Count (0.00-0.2) % Eos # (Auto) (0.04-0.36) x10^3/uL Immature Gran # (Auto) (0.001-0.031) x10^3u/L Absolute Lymphs (auto) (1.18-3.74) x10^3/uL Absolute Monos (auto) (0.24-0.86) x10^3/uL Absolute Nucleated RBC (0.00-0.012) x10^3u/L Lymphocytes % (19.3-51.7) % Monocytes % (4.7-12.5) % Eosinophils % (0.7-5.8) % Basophils % (0.1-1.2) % Absolute Granulocytes (1.56-6.13) x10^3/uL Basophils # (0.01-0.08) x10^3/uL ESR (0-20) mm/hr D-Dimer (0.0-0.50) mg/L Sodium (135-145) mmol/L Potassium (3.5-5.1) mmol/L Chloride (98-107) mmol/L Carbon Dioxide (22-30) mmol/L Anion Gap (5-15) MEQ/L BUN (7-17) mg/dL Creatinine (0.52-1.04) mg/dL Estimated GFR ML/MIN Glucose (74-106) mg/dL POC Glucometer (74 to 106) mg/dL Hemoglobin A1c (4.5-6.0) % Lactic Acid 1.1 (0.4-2.0) Calcium (8.4-10.2) mg/dL Total Bilirubin (0.2-1.3) mg/dL AST (14-36) U/L ALT (0-35) U/L Alkaline Phosphatase (38-126) U/L Troponin I (0.000-0.033) ng/mL NT-Pro-B Natriuret Pep (<300) pg/mL Serum Total Protein (6.3-8.2) g/dL Albumin (3.5-5.0) g/dL Prealbumin (17.6-36.0) mg/dL Amylase (30-110) U/L Lipase (23-300) U/L Urine Color (Yellow) Urine Appearance (Clear) Urine pH (4.6-8.0) Ur Specific [place] (1.005-1.030) Urine Protein (Negative) Urine Glucose (UA) (Negative) mg/dL Urine Ketones (Negative) Urine Blood (Negative) Urine Nitrite (Negative) Urine Bilirubin (Negative) Urine Urobilinogen (0.2) mg/dL Ur Leukocyte Esterase (Negative) U Hyaline Cast (Auto) (0-2) /LPF Urine Microscopic RBC (0-5) /HPF Urine Microscopic WBC (0-5) /HPF Ur Epithelial Cells (None Seen) /HPF Urine Bacteria (None Seen) /HPF Urine Culture Reflexed (NO) ABO Group O Rh Factor NEGATIVE Antibody Screen NEGATIVE (NEGATIVE) Crossmatch COMPATIBLE COMPATIBLE (COMPATIBLE) 12/16/23 12/17/23 12/17/23 Range/Units 21:05 02:30 02:30 WBC (3.98-10.04) x10^3/uL RBC (3.93-5.22) x10^6/uL Hgb 8.6 L D (11.2-15.7) g/dL Hct 28.4 L (34.1-44.9) % MCV (79.4-94.8) fL MCH (25.6-32.2) pg MCHC (32.2-35.5) g/dL RDW (11.7-14.4) % Plt Count (182-369) x10^3/uL MPV (9.4-12.3) fL Gran % (34.0-71.1) % Immature Gran % (Auto) (0.001-0.429) % Nucleat RBC Rel Count (0.00-0.2) % Eos # (Auto) (0.04-0.36) x10^3/uL Immature Gran # (Auto) (0.001-0.031) x10^3u/L Absolute Lymphs (auto) (1.18-3.74) x10^3/uL Absolute Monos (auto) (0.24-0.86) x10^3/uL Absolute Nucleated RBC (0.00-0.012) x10^3u/L Lymphocytes % (19.3-51.7) % Monocytes % (4.7-12.5) % Eosinophils % (0.7-5.8) % Basophils % (0.1-1.2) % Absolute Granulocytes (1.56-6.13) x10^3/uL Basophils # (0.01-0.08) x10^3/uL ESR (0-20) mm/hr D-Dimer (0.0-0.50) mg/L Sodium (135-145) mmol/L Potassium (3.5-5.1) mmol/L Chloride (98-107) mmol/L Carbon Dioxide (22-30) mmol/L Anion Gap (5-15) MEQ/L BUN (7-17) mg/dL Creatinine (0.52-1.04) mg/dL Estimated GFR ML/MIN Glucose (74-106) mg/dL POC Glucometer (74 to 106) mg/dL Hemoglobin A1c (4.5-6.0) % Lactic Acid (0.4-2.0) Calcium (8.4-10.2) mg/dL Total Bilirubin (0.2-1.3) mg/dL AST (14-36) U/L ALT (0-35) U/L Alkaline Phosphatase (38-126) U/L Troponin I < 0.012 < 0.012 (0.000-0.033) ng/mL NT-Pro-B Natriuret Pep (<300) pg/mL Serum Total Protein (6.3-8.2) g/dL Albumin (3.5-5.0) g/dL Prealbumin (17.6-36.0) mg/dL Amylase (30-110) U/L Lipase (23-300) U/L Urine Color (Yellow) Urine Appearance (Clear) Urine pH (4.6-8.0) Ur Specific [place] (1.005-1.030) Urine Protein (Negative) Urine Glucose (UA) (Negative) mg/dL Urine Ketones (Negative) Urine Blood (Negative) Urine Nitrite (Negative) Urine Bilirubin (Negative) Urine Urobilinogen (0.2) mg/dL Ur Leukocyte Esterase (Negative) U Hyaline Cast (Auto) (0-2) /LPF Urine Microscopic RBC (0-5) /HPF Urine Microscopic WBC (0-5) /HPF Ur Epithelial Cells (None Seen) /HPF Urine Bacteria (None Seen) /HPF Urine Culture Reflexed (NO) ABO Group Rh Factor Antibody Screen (NEGATIVE) Crossmatch (COMPATIBLE) 12/17/23 12/17/23 12/17/23 Range/Units 02:30 04:43 04:43 WBC 12.9 H (3.98-10.04) x10^3/uL RBC 3.03 L (3.93-5.22) x10^6/uL Hgb 8.3 L (11.2-15.7) g/dL Hct 27.3 L (34.1-44.9) % MCV 90.1 (79.4-94.8) fL MCH 27.4 (25.6-32.2) pg MCHC 30.4 L (32.2-35.5) g/dL RDW 16.6 H (11.7-14.4) % Plt Count 420 H (182-369) x10^3/uL MPV 8.9 L (9.4-12.3) fL Gran % 77.6 H (34.0-71.1) % Immature Gran % (Auto) 1.2 H (0.001-0.429) % Nucleat RBC Rel Count 0.0 (0.00-0.2) % Eos # (Auto) 0.21 (0.04-0.36) x10^3/uL Immature Gran # (Auto) 0.16 H (0.001-0.031) x10^3u/L Absolute Lymphs (auto) 1.73 (1.18-3.74) x10^3/uL Absolute Monos (auto) 0.77 (0.24-0.86) x10^3/uL Absolute Nucleated RBC 0.00 (0.00-0.012) x10^3u/L Lymphocytes % 13.4 L (19.3-51.7) % Monocytes % 6.0 (4.7-12.5) % Eosinophils % 1.6 (0.7-5.8) % Basophils % 0.2 (0.1-1.2) % Absolute Granulocytes 10.04 H (1.56-6.13) x10^3/uL Basophils # 0.03 (0.01-0.08) x10^3/uL ESR (0-20) mm/hr D-Dimer (0.0-0.50) mg/L Sodium 137 (135-145) mmol/L Potassium 3.9 (3.5-5.1) mmol/L Chloride 102 (98-107) mmol/L Carbon Dioxide 26 (22-30) mmol/L Anion Gap 12.2 (5-15) MEQ/L BUN 15 (7-17) mg/dL Creatinine 0.82 (0.52-1.04) mg/dL Estimated GFR 85.0 ML/MIN Glucose 200 H (74-106) mg/dL POC Glucometer (74 to 106) mg/dL Hemoglobin A1c 6.11 H (4.5-6.0) % Lactic Acid (0.4-2.0) Calcium 8.9 (8.4-10.2) mg/dL Total Bilirubin (0.2-1.3) mg/dL AST (14-36) U/L ALT (0-35) U/L Alkaline Phosphatase (38-126) U/L Troponin I (0.000-0.033) ng/mL NT-Pro-B Natriuret Pep 289 (<300) pg/mL Serum Total Protein (6.3-8.2) g/dL Albumin (3.5-5.0) g/dL Prealbumin 9.13 L (17.6-36.0) mg/dL Amylase (30-110) U/L Lipase (23-300) U/L Urine Color (Yellow) Urine Appearance (Clear) Urine pH (4.6-8.0) Ur Specific [place] (1.005-1.030) Urine Protein (Negative) Urine Glucose (UA) (Negative) mg/dL Urine Ketones (Negative) Urine Blood (Negative) Urine Nitrite (Negative) Urine Bilirubin (Negative) Urine Urobilinogen (0.2) mg/dL Ur Leukocyte Esterase (Negative) U Hyaline Cast (Auto) (0-2) /LPF Urine Microscopic RBC (0-5) /HPF Urine Microscopic WBC (0-5) /HPF Ur Epithelial Cells (None Seen) /HPF Urine Bacteria (None Seen) /HPF Urine Culture Reflexed (NO) ABO Group Rh Factor Antibody Screen (NEGATIVE) Crossmatch (COMPATIBLE) 12/17/23 12/17/23 12/17/23 Range/Units 04:43 04:43 07:26 WBC (3.98-10.04) x10^3/uL RBC (3.93-5.22) x10^6/uL Hgb (11.2-15.7) g/dL Hct (34.1-44.9) % MCV (79.4-94.8) fL MCH (25.6-32.2) pg MCHC (32.2-35.5) g/dL RDW (11.7-14.4) % Plt Count (182-369) x10^3/uL MPV (9.4-12.3) fL Gran % (34.0-71.1) % Immature Gran % (Auto) (0.001-0.429) % Nucleat RBC Rel Count (0.00-0.2) % Eos # (Auto) (0.04-0.36) x10^3/uL Immature Gran # (Auto) (0.001-0.031) x10^3u/L Absolute Lymphs (auto) (1.18-3.74) x10^3/uL Absolute Monos (auto) (0.24-0.86) x10^3/uL Absolute Nucleated RBC (0.00-0.012) x10^3u/L Lymphocytes % (19.3-51.7) % Monocytes % (4.7-12.5) % Eosinophils % (0.7-5.8) % Basophils % (0.1-1.2) % Absolute Granulocytes (1.56-6.13) x10^3/uL Basophils # (0.01-0.08) x10^3/uL ESR 51 H (0-20) mm/hr D-Dimer (0.0-0.50) mg/L Sodium (135-145) mmol/L Potassium (3.5-5.1) mmol/L Chloride (98-107) mmol/L Carbon Dioxide (22-30) mmol/L Anion Gap (5-15) MEQ/L BUN (7-17) mg/dL Creatinine (0.52-1.04) mg/dL Estimated GFR ML/MIN Glucose (74-106) mg/dL POC Glucometer 240 H (74 to 106) mg/dL Hemoglobin A1c (4.5-6.0) % Lactic Acid (0.4-2.0) Calcium (8.4-10.2) mg/dL Total Bilirubin (0.2-1.3) mg/dL AST (14-36) U/L ALT (0-35) U/L Alkaline Phosphatase (38-126) U/L Troponin I (0.000-0.033) ng/mL NT-Pro-B Natriuret Pep (<300) pg/mL Serum Total Protein (6.3-8.2) g/dL Albumin 2.9 L (3.5-5.0) g/dL Prealbumin (17.6-36.0) mg/dL Amylase (30-110) U/L Lipase (23-300) U/L Urine Color (Yellow) Urine Appearance (Clear) Urine pH (4.6-8.0) Ur Specific [place] (1.005-1.030) Urine Protein (Negative) Urine Glucose (UA) (Negative) mg/dL Urine Ketones (Negative) Urine Blood (Negative) Urine Nitrite (Negative) Urine Bilirubin (Negative) Urine Urobilinogen (0.2) mg/dL Ur Leukocyte Esterase (Negative) U Hyaline Cast (Auto) (0-2) /LPF Urine Microscopic RBC (0-5) /HPF Urine Microscopic WBC (0-5) /HPF Ur Epithelial Cells (None Seen) /HPF Urine Bacteria (None Seen) /HPF Urine Culture Reflexed (NO) ABO Group Rh Factor Antibody Screen (NEGATIVE) Crossmatch (COMPATIBLE) 12/17/23 Range/Units 11:24 WBC (3.98-10.04) x10^3/uL RBC (3.93-5.22) x10^6/uL Hgb (11.2-15.7) g/dL Hct (34.1-44.9) % MCV (79.4-94.8) fL MCH (25.6-32.2) pg MCHC (32.2-35.5) g/dL RDW (11.7-14.4) % Plt Count (182-369) x10^3/uL MPV (9.4-12.3) fL Gran % (34.0-71.1) % Immature Gran % (Auto) (0.001-0.429) % Nucleat RBC Rel Count (0.00-0.2) % Eos # (Auto) (0.04-0.36) x10^3/uL Immature Gran # (Auto) (0.001-0.031) x10^3u/L Absolute Lymphs (auto) (1.18-3.74) x10^3/uL Absolute Monos (auto) (0.24-0.86) x10^3/uL Absolute Nucleated RBC (0.00-0.012) x10^3u/L Lymphocytes % (19.3-51.7) % Monocytes % (4.7-12.5) % Eosinophils % (0.7-5.8) % Basophils % (0.1-1.2) % Absolute Granulocytes (1.56-6.13) x10^3/uL Basophils # (0.01-0.08) x10^3/uL ESR (0-20) mm/hr D-Dimer (0.0-0.50) mg/L Sodium (135-145) mmol/L Potassium (3.5-5.1) mmol/L Chloride (98-107) mmol/L Carbon Dioxide (22-30) mmol/L Anion Gap (5-15) MEQ/L BUN (7-17) mg/dL Creatinine (0.52-1.04) mg/dL Estimated GFR ML/MIN Glucose (74-106) mg/dL POC Glucometer 147 H (74 to 106) mg/dL Hemoglobin A1c (4.5-6.0) % Lactic Acid (0.4-2.0) Calcium (8.4-10.2) mg/dL Total Bilirubin (0.2-1.3) mg/dL AST (14-36) U/L ALT (0-35) U/L Alkaline Phosphatase (38-126) U/L Troponin I (0.000-0.033) ng/mL NT-Pro-B Natriuret Pep (<300) pg/mL Serum Total Protein (6.3-8.2) g/dL Albumin (3.5-5.0) g/dL Prealbumin (17.6-36.0) mg/dL Amylase (30-110) U/L Lipase (23-300) U/L Urine Color (Yellow) Urine Appearance (Clear) Urine pH (4.6-8.0) Ur Specific [place] (1.005-1.030) Urine Protein (Negative) Urine Glucose (UA) (Negative) mg/dL Urine Ketones (Negative) Urine Blood (Negative) Urine Nitrite (Negative) Urine Bilirubin (Negative) Urine Urobilinogen (0.2) mg/dL Ur Leukocyte Esterase (Negative) U Hyaline Cast (Auto) (0-2) /LPF Urine Microscopic RBC (0-5) /HPF Urine Microscopic WBC (0-5) /HPF Ur Epithelial Cells (None Seen) /HPF Urine Bacteria (None Seen) /HPF Urine Culture Reflexed (NO) ABO Group Rh Factor Antibody Screen (NEGATIVE) Crossmatch (COMPATIBLE) Radiology Exams: Radiology Procedures Category Date Time Status ABDOMEN AND PELVIS W/0 CONTRAS [CT] Stat Exams 12/16/23 18:50 Completed CHEST WITH CONTRAST [CT] Stat Exams 12/16/23 18:49 Completed ECHO W/2D AND DOPPLER [US] Routine Exams 12/17/23 10:00 Taken MRI UPPER EXT JOINT W/O CONTRA [MRI] Routine Exams 12/17/23 08:00 Ordered SHOULDER Stat Exams 12/16/23 17:16 Completed Assessment/Plan (1) Anemia Current Visit: Yes Status: Acute Assessment & Plan: - recent surgery, no active bleeding - 2 units PRBC- Hgb 8.3 today - Protonix PO - stopped Meloxicam - iron panel Code(s): D64.9 - ANEMIA, UNSPECIFIED (2) D-dimer, elevated Current Visit: Yes Status: Acute Assessment & Plan: - D-dimer 20.49 - CTA chest: negative for PE Impression: 1. Pulmonary embolus evaluation limited by suboptimal contrast opacification and respiration artifact. No obvious central pulmonary embolus. 2. Borderline cardiomegaly with small bilateral effusions. Rule out cardiac decomposition/CHF versus fluid overload. 3. Chronic findings including atelectasis/scarring, chronic bony findings, and old granulomatous disease. - + recent surgery Code(s): R79.89 - OTHER SPECIFIED ABNORMAL FINDINGS OF BLOOD CHEMISTRY (3) Anasarca Current Visit: Yes Status: Acute Assessment & Plan: -as seen on CT - Lasix IV 40 BID - Pt refused lasix IV last night Code(s): R60.1 - GENERALIZED EDEMA (4) Chest pain Current Visit: Yes Status: Resolved Assessment & Plan: - CP resolved - Trop x3 negative - Echo pending - Tele - EKG reviewed Code(s): R07.9 - CHEST PAIN, UNSPECIFIED (5) Leukocytosis Current Visit: Yes Status: Acute Assessment & Plan: - On cipro and flagyl OP continue - No fevers noted. - UA unremarkable. - No exudate from wound. - PT Wound care and - trend WBC count. - WBC improved today 12.9 Code(s): D72.829 - ELEVATED WHITE BLOOD CELL COUNT, UNSPECIFIED (6) Shoulder subluxation, right Current Visit: Yes Status: Acute Assessment & Plan: - Ortho eval- reviewed note and agree with plan of care - MRI right shoulder Code(s): S43.001A - UNSPECIFIED SUBLUXATION OF RIGHT SHOULDER JOINT, INIT ENCNTR (7) LUQ pain Current Visit: Yes Status: Acute Assessment & Plan: - Continue pain meds - + feeding and nephrostomy tube in place - flush nephrostomy tube TID - Flush feeding tube if pt willing - Abd. wound wet to dry dressing prior to arrival- will have PT eval Code(s): R10.12 - LEFT UPPER QUADRANT PAIN (8) Prediabetes Current Visit: Yes Status: Acute Assessment & Plan: - A1C 6.11 - fasting glucose this AM 240 - BMI > 35 - younger than 60 yrs old - start metformin 500mg BID per guidelines - Accuchecks ac/hs - S/S humalog Code(s): R73.03 - PREDIABETES (9) Morbid obesity with BMI of 40.0-44.9, adult Current Visit: Yes Status: Acute Assessment & Plan: - advised ADA diet and exercise - nutrition consult VTE: SCD's PPI: Protonix Next of KIN: Code status: Full Code(s): E66.01 - MORBID (SEVERE) OBESITY DUE TO EXCESS CALORIES; Z68.41 - BODY MASS INDEX [BMI] 40.0-44.9, ADULT
[2023-12-17 13:10] LABS: Iron 52 ug/dL (37-170); Iron Saturation 21 % (20-39); TIBC 249 ug/dL (265-462)
--- NOTE | 2023-12-17 14:30 | XRAY ---
Indication: Pain and weakness. No known injury. MRI right shoulder was performed. Examination was terminated early due to pain. Only coronal T1/T2 and axial T2 sequences obtained. Comparison: None Images are slightly degraded by motion artifact. Right shoulder articulation grossly intact with nonspecific effusion. Inferior glenohumeral pouch appears smooth. Humeral head demonstrates nondisplaced comminuted fracture with diffuse bone edema signal. Posterior lateral humeral head appears flattened suggesting Hill-Sachs deformity from chronic shoulder dislocation. Rotator cuff poorly visualized due to incomplete exam and motion artifact. Suspect partial bursal surface tear supraspinatus tendon small subdeltoid and subacromial fluid. Query also partial tear subscapularis tendon. Body subscapularis muscle demonstrates well-circumscribed irregular shaped fluid collection measuring at least 2.1 x 3.7 x 2.0 cm of uncertain etiology. Long head biceps tendon and anchor not identified concerning for complete rupture with musculotendinous retraction. Impression: 1. Limited MRI exam due to incomplete exam and motion artifact. 2. Nondisplaced acute comminuted fracture humeral head. 3. Humeral head Hill-Sachs deformity as seen with chronic shoulder dislocation. 4. Diffuse partial thickness tear supraspinatus tendon. 5. Query partial tear subscapularis tendon. Subscapularis fluid collection deep to subscapularis muscle that may or may not be related. 6. Nonvisualization long head biceps tendon and anchor. Rule out tendon rupture with musculotendinous retraction.
[2023-12-17] MEDS: Protonix 20MG Tablet PO SCH (14:45)
[2023-12-17] MEDS ORDERED: ATARAX 25 MG ONE (15:16)
[2023-12-17] MEDS: ATARAX 25 MG PO PRN (15:17)
--- NOTE | 2023-12-17 15:44 | PCM.NOTE ---
Date and Time: 12/17/23 1538 Reviewed MRI of right shoulder. Poor images due to motion but does show what radiologist is calling a nondisplaced acute comminuted humeral Head fracture, B ut appears more like bone edema to me.There is a small Hill-Sachs lesion, Partial subscapularis and Supraspinatus tears, Long head biceps tear, And a fluid collection in the subscapularis muscle body which is 2.1 x 3.7 x 2 m. Also some Subacromial fluid I explained to the patient that in light of her elevated sedimentation rate And the fluid collection that this should be aspirated.I discussed this with Dr. Marks radiology who does not feel he could aspirate this I discussed this with The hospitalist nurse practitioner revealed patient to be transferred to [facility] for interventional radiology to attempt aspiration of the subscapularis To rule out an abscess. She will work on arranging this.Patient is okay with this plan as long as her other medical problems can be taking care of there. Follow-up here as needed Objective Data Vital Signs: Vital Signs - 24 hr Temp Pulse Resp BP BP Pulse Ox 12/17/23 11:50 97.3 F 89 17 151/72 98 12/17/23 08:00 97.2 F 87 18 128/66 98 12/17/23 07:59 95 12/17/23 06:38 95 12/17/23 04:00 97.0 F 97 H 18 95 12/17/23 00:53 91 H 18 96 12/17/23 00:00 93 L 12/16/23 23:22 97.6 F 95 H 18 133/75 93 L 12/16/23 23:00 93 H 20 109/87 97 12/16/23 22:30 91 H 22 116/75 96 12/16/23 22:00 91 H 20 143/97 96 12/16/23 21:35 92 H 24 122/80 95 12/16/23 21:34 91 H 18 140/70 96 12/16/23 21:00 93 H 26 H 144/95 97 12/16/23 20:30 111 H 33 H 142/76 83 L 12/16/23 20:03 89 22 114/82 92 L 12/16/23 19:01 95 H 27 H 117/71 98 12/16/23 18:30 96 H 33 H 114/86 96 12/16/23 18:00 100 H 35 H 142/85 96 12/16/23 17:44 99 H 37 H 137/82 92 L 12/16/23 16:36 98.9 F 111 H 20 133/105 91 L 12/16/23 16:32 133/105 93 L Pain Assessment - Last Documented Pain Intensity 10 Pain Scale Used 0-10 Pain Scale Intake and Output: Intake & Output 12/15/23 12/16/23 12/17/23 12/18/23 11:59 11:59 11:59 11:59 Intake Total 710 120 Balance 710 120 Weight 110.1 kg Lab Results: Lab Results-Last 24 Hours 12/16/23 12/16/23 12/16/23 Range/Units 17:12 17:30 17:30 WBC 14.4 H (3.98-10.04) x10^3/uL RBC 2.49 L (3.93-5.22) x10^6/uL Hgb 6.8 L* (11.2-15.7) g/dL Hct 22.5 L (34.1-44.9) % MCV 90.4 (79.4-94.8) fL MCH 27.3 (25.6-32.2) pg MCHC 30.2 L (32.2-35.5) g/dL RDW 16.9 H (11.7-14.4) % Plt Count 523 H (182-369) x10^3/uL MPV 8.9 L (9.4-12.3) fL Gran % 80.5 H (34.0-71.1) % Immature Gran % (Auto) 1.2 H (0.001-0.429) % Nucleat RBC Rel Count 0.0 (0.00-0.2) % Eos # (Auto) 0.19 (0.04-0.36) x10^3/uL Immature Gran # (Auto) 0.17 H (0.001-0.031) x10^3u/L Absolute Lymphs (auto) 1.68 (1.18-3.74) x10^3/uL Absolute Monos (auto) 0.74 (0.24-0.86) x10^3/uL Absolute Nucleated RBC 0.00 (0.00-0.012) x10^3u/L Lymphocytes % 11.6 L (19.3-51.7) % Monocytes % 5.1 (4.7-12.5) % Eosinophils % 1.3 (0.7-5.8) % Basophils % 0.3 (0.1-1.2) % Absolute Granulocytes 11.61 H (1.56-6.13) x10^3/uL Basophils # 0.04 (0.01-0.08) x10^3/uL ESR (0-20) mm/hr D-Dimer (0.0-0.50) mg/L Sodium 136 (135-145) mmol/L Potassium 3.7 (3.5-5.1) mmol/L Chloride 100 (98-107) mmol/L Carbon Dioxide 28 (22-30) mmol/L Anion Gap 11.0 (5-15) MEQ/L BUN 16 (7-17) mg/dL Creatinine 0.81 (0.52-1.04) mg/dL Estimated GFR 86.2 ML/MIN Glucose 168 H (74-106) mg/dL POC Glucometer (74 to 106) mg/dL Hemoglobin A1c (4.5-6.0) % Lactic Acid (0.4-2.0) Calcium 9.1 (8.4-10.2) mg/dL Iron (37-170) ug/dL TIBC (265-462) ug/dL Iron Saturation (20-39) % Ferritin (11.1-264) ng/mL Total Bilirubin 0.30 (0.2-1.3) mg/dL AST 24 (14-36) U/L ALT 21 (0-35) U/L Alkaline Phosphatase 133 H (38-126) U/L Troponin I (0.000-0.033) ng/mL NT-Pro-B Natriuret Pep (<300) pg/mL Serum Total Protein 7.5 (6.3-8.2) g/dL Albumin 3.1 L (3.5-5.0) g/dL Prealbumin (17.6-36.0) mg/dL Amylase 59 (30-110) U/L Lipase 60 (23-300) U/L Vitamin B12 (239-931) pg/mL Folic Acid Urine Color Yellow (Yellow) Urine Appearance Clear (Clear) Urine pH 7.0 (4.6-8.0) Ur Specific Hackett 1.015 (1.005-1.030) Urine Protein 30 (Negative) Urine Glucose (UA) Negative (Negative) mg/dL Urine Ketones Negative (Negative) Urine Blood Negative (Negative) Urine Nitrite Negative (Negative) Urine Bilirubin Negative (Negative) Urine Urobilinogen 0.2 (0.2) mg/dL Ur Leukocyte Esterase Trace A (Negative) U Hyaline Cast (Auto) 0-2 (0-2) /LPF Urine Microscopic RBC 0-2 (0-5) /HPF Urine Microscopic WBC 3-5 (0-5) /HPF Ur Epithelial Cells Moderate A (None Seen) /HPF Urine Bacteria Rare A (None Seen) /HPF Urine Culture Reflexed YES (NO) ABO Group Rh Factor Antibody Screen (NEGATIVE) Crossmatch (COMPATIBLE) 12/16/23 12/16/23 12/16/23 Range/Units 17:30 17:30 17:30 WBC (3.98-10.04) x10^3/uL RBC (3.93-5.22) x10^6/uL Hgb (11.2-15.7) g/dL Hct (34.1-44.9) % MCV (79.4-94.8) fL MCH (25.6-32.2) pg MCHC (32.2-35.5) g/dL RDW (11.7-14.4) % Plt Count (182-369) x10^3/uL MPV (9.4-12.3) fL Gran % (34.0-71.1) % Immature Gran % (Auto) (0.001-0.429) % Nucleat RBC Rel Count (0.00-0.2) % Eos # (Auto) (0.04-0.36) x10^3/uL Immature Gran # (Auto) (0.001-0.031) x10^3u/L Absolute Lymphs (auto) (1.18-3.74) x10^3/uL Absolute Monos (auto) (0.24-0.86) x10^3/uL Absolute Nucleated RBC (0.00-0.012) x10^3u/L Lymphocytes % (19.3-51.7) % Monocytes % (4.7-12.5) % Eosinophils % (0.7-5.8) % Basophils % (0.1-1.2) % Absolute Granulocytes (1.56-6.13) x10^3/uL Basophils # (0.01-0.08) x10^3/uL ESR (0-20) mm/hr D-Dimer 20.49 H* (0.0-0.50) mg/L Sodium (135-145) mmol/L Potassium (3.5-5.1) mmol/L Chloride (98-107) mmol/L Carbon Dioxide (22-30) mmol/L Anion Gap (5-15) MEQ/L BUN (7-17) mg/dL Creatinine (0.52-1.04) mg/dL Estimated GFR ML/MIN Glucose (74-106) mg/dL POC Glucometer (74 to 106) mg/dL Hemoglobin A1c (4.5-6.0) % Lactic Acid (0.4-2.0) Calcium (8.4-10.2) mg/dL Iron (37-170) ug/dL TIBC (265-462) ug/dL Iron Saturation (20-39) % Ferritin (11.1-264) ng/mL Total Bilirubin (0.2-1.3) mg/dL AST (14-36) U/L ALT (0-35) U/L Alkaline Phosphatase (38-126) U/L Troponin I < 0.012 (0.000-0.033) ng/mL NT-Pro-B Natriuret Pep 269 (<300) pg/mL Serum Total Protein (6.3-8.2) g/dL Albumin (3.5-5.0) g/dL Prealbumin (17.6-36.0) mg/dL Amylase (30-110) U/L Lipase (23-300) U/L Vitamin B12 (239-931) pg/mL Folic Acid Urine Color (Yellow) Urine Appearance (Clear) Urine pH (4.6-8.0) Ur Specific Hackett (1.005-1.030) Urine Protein (Negative) Urine Glucose (UA) (Negative) mg/dL Urine Ketones (Negative) Urine Blood (Negative) Urine Nitrite (Negative) Urine Bilirubin (Negative) Urine Urobilinogen (0.2) mg/dL Ur Leukocyte Esterase (Negative) U Hyaline Cast (Auto) (0-2) /LPF Urine Microscopic RBC (0-5) /HPF Urine Microscopic WBC (0-5) /HPF Ur Epithelial Cells (None Seen) /HPF Urine Bacteria (None Seen) /HPF Urine Culture Reflexed (NO) ABO Group Rh Factor Antibody Screen (NEGATIVE) Crossmatch (COMPATIBLE) 12/16/23 12/16/23 12/16/23 Range/Units 17:35 18:15 18:15 WBC (3.98-10.04) x10^3/uL RBC (3.93-5.22) x10^6/uL Hgb (11.2-15.7) g/dL Hct (34.1-44.9) % MCV (79.4-94.8) fL MCH (25.6-32.2) pg MCHC (32.2-35.5) g/dL RDW (11.7-14.4) % Plt Count (182-369) x10^3/uL MPV (9.4-12.3) fL Gran % (34.0-71.1) % Immature Gran % (Auto) (0.001-0.429) % Nucleat RBC Rel Count (0.00-0.2) % Eos # (Auto) (0.04-0.36) x10^3/uL Immature Gran # (Auto) (0.001-0.031) x10^3u/L Absolute Lymphs (auto) (1.18-3.74) x10^3/uL Absolute Monos (auto) (0.24-0.86) x10^3/uL Absolute Nucleated RBC (0.00-0.012) x10^3u/L Lymphocytes % (19.3-51.7) % Monocytes % (4.7-12.5) % Eosinophils % (0.7-5.8) % Basophils % (0.1-1.2) % Absolute Granulocytes (1.56-6.13) x10^3/uL Basophils # (0.01-0.08) x10^3/uL ESR (0-20) mm/hr D-Dimer (0.0-0.50) mg/L Sodium (135-145) mmol/L Potassium (3.5-5.1) mmol/L Chloride (98-107) mmol/L Carbon Dioxide (22-30) mmol/L Anion Gap (5-15) MEQ/L BUN (7-17) mg/dL Creatinine (0.52-1.04) mg/dL Estimated GFR ML/MIN Glucose (74-106) mg/dL POC Glucometer (74 to 106) mg/dL Hemoglobin A1c (4.5-6.0) % Lactic Acid 1.1 (0.4-2.0) Calcium (8.4-10.2) mg/dL Iron (37-170) ug/dL TIBC (265-462) ug/dL Iron Saturation (20-39) % Ferritin (11.1-264) ng/mL Total Bilirubin (0.2-1.3) mg/dL AST (14-36) U/L ALT (0-35) U/L Alkaline Phosphatase (38-126) U/L Troponin I (0.000-0.033) ng/mL NT-Pro-B Natriuret Pep (<300) pg/mL Serum Total Protein (6.3-8.2) g/dL Albumin (3.5-5.0) g/dL Prealbumin (17.6-36.0) mg/dL Amylase (30-110) U/L Lipase (23-300) U/L Vitamin B12 (239-931) pg/mL Folic Acid Urine Color (Yellow) Urine Appearance (Clear) Urine pH (4.6-8.0) Ur Specific Hackett (1.005-1.030) Urine Protein (Negative) Urine Glucose (UA) (Negative) mg/dL Urine Ketones (Negative) Urine Blood (Negative) Urine Nitrite (Negative) Urine Bilirubin (Negative) Urine Urobilinogen (0.2) mg/dL Ur Leukocyte Esterase (Negative) U Hyaline Cast (Auto) (0-2) /LPF Urine Microscopic RBC (0-5) /HPF Urine Microscopic WBC (0-5) /HPF Ur Epithelial Cells (None Seen) /HPF Urine Bacteria (None Seen) /HPF Urine Culture Reflexed (NO) ABO Group O Rh Factor NEGATIVE Antibody Screen NEGATIVE (NEGATIVE) Crossmatch COMPATIBLE COMPATIBLE (COMPATIBLE) 12/16/23 12/17/23 12/17/23 Range/Units 21:05 02:30 02:30 WBC (3.98-10.04) x10^3/uL RBC (3.93-5.22) x10^6/uL Hgb 8.6 L D (11.2-15.7) g/dL Hct 28.4 L (34.1-44.9) % MCV (79.4-94.8) fL MCH (25.6-32.2) pg MCHC (32.2-35.5) g/dL RDW (11.7-14.4) % Plt Count (182-369) x10^3/uL MPV (9.4-12.3) fL Gran % (34.0-71.1) % Immature Gran % (Auto) (0.001-0.429) % Nucleat RBC Rel Count (0.00-0.2) % Eos # (Auto) (0.04-0.36) x10^3/uL Immature Gran # (Auto) (0.001-0.031) x10^3u/L Absolute Lymphs (auto) (1.18-3.74) x10^3/uL Absolute Monos (auto) (0.24-0.86) x10^3/uL Absolute Nucleated RBC (0.00-0.012) x10^3u/L Lymphocytes % (19.3-51.7) % Monocytes % (4.7-12.5) % Eosinophils % (0.7-5.8) % Basophils % (0.1-1.2) % Absolute Granulocytes (1.56-6.13) x10^3/uL Basophils # (0.01-0.08) x10^3/uL ESR (0-20) mm/hr D-Dimer (0.0-0.50) mg/L Sodium (135-145) mmol/L Potassium (3.5-5.1) mmol/L Chloride (98-107) mmol/L Carbon Dioxide (22-30) mmol/L Anion Gap (5-15) MEQ/L BUN (7-17) mg/dL Creatinine (0.52-1.04) mg/dL Estimated GFR ML/MIN Glucose (74-106) mg/dL POC Glucometer (74 to 106) mg/dL Hemoglobin A1c (4.5-6.0) % Lactic Acid (0.4-2.0) Calcium (8.4-10.2) mg/dL Iron (37-170) ug/dL TIBC (265-462) ug/dL Iron Saturation (20-39) % Ferritin (11.1-264) ng/mL Total Bilirubin (0.2-1.3) mg/dL AST (14-36) U/L ALT (0-35) U/L Alkaline Phosphatase (38-126) U/L Troponin I < 0.012 < 0.012 (0.000-0.033) ng/mL NT-Pro-B Natriuret Pep (<300) pg/mL Serum Total Protein (6.3-8.2) g/dL Albumin (3.5-5.0) g/dL Prealbumin (17.6-36.0) mg/dL Amylase (30-110) U/L Lipase (23-300) U/L Vitamin B12 (239-931) pg/mL Folic Acid Urine Color (Yellow) Urine Appearance (Clear) Urine pH (4.6-8.0) Ur Specific Hackett (1.005-1.030) Urine Protein (Negative) Urine Glucose (UA) (Negative) mg/dL Urine Ketones (Negative) Urine Blood (Negative) Urine Nitrite (Negative) Urine Bilirubin (Negative) Urine Urobilinogen (0.2) mg/dL Ur Leukocyte Esterase (Negative) U Hyaline Cast (Auto) (0-2) /LPF Urine Microscopic RBC (0-5) /HPF Urine Microscopic WBC (0-5) /HPF Ur Epithelial Cells (None Seen) /HPF Urine Bacteria (None Seen) /HPF Urine Culture Reflexed (NO) ABO Group Rh Factor Antibody Screen (NEGATIVE) Crossmatch (COMPATIBLE) 12/17/23 12/17/23 12/17/23 Range/Units 02:30 04:33 04:33 WBC (3.98-10.04) x10^3/uL RBC (3.93-5.22) x10^6/uL Hgb (11.2-15.7) g/dL Hct (34.1-44.9) % MCV (79.4-94.8) fL MCH (25.6-32.2) pg MCHC (32.2-35.5) g/dL RDW (11.7-14.4) % Plt Count (182-369) x10^3/uL MPV (9.4-12.3) fL Gran % (34.0-71.1) % Immature Gran % (Auto) (0.001-0.429) % Nucleat RBC Rel Count (0.00-0.2) % Eos # (Auto) (0.04-0.36) x10^3/uL Immature Gran # (Auto) (0.001-0.031) x10^3u/L Absolute Lymphs (auto) (1.18-3.74) x10^3/uL Absolute Monos (auto) (0.24-0.86) x10^3/uL Absolute Nucleated RBC (0.00-0.012) x10^3u/L Lymphocytes % (19.3-51.7) % Monocytes % (4.7-12.5) % Eosinophils % (0.7-5.8) % Basophils % (0.1-1.2) % Absolute Granulocytes (1.56-6.13) x10^3/uL Basophils # (0.01-0.08) x10^3/uL ESR (0-20) mm/hr D-Dimer (0.0-0.50) mg/L Sodium (135-145) mmol/L Potassium (3.5-5.1) mmol/L Chloride (98-107) mmol/L Carbon Dioxide (22-30) mmol/L Anion Gap (5-15) MEQ/L BUN (7-17) mg/dL Creatinine (0.52-1.04) mg/dL Estimated GFR ML/MIN Glucose (74-106) mg/dL POC Glucometer (74 to 106) mg/dL Hemoglobin A1c 6.11 H (4.5-6.0) % Lactic Acid (0.4-2.0) Calcium (8.4-10.2) mg/dL Iron 52 (37-170) ug/dL TIBC 249 L (265-462) ug/dL Iron Saturation 21 (20-39) % Ferritin 788 H (11.1-264) ng/mL Total Bilirubin (0.2-1.3) mg/dL AST (14-36) U/L ALT (0-35) U/L Alkaline Phosphatase (38-126) U/L Troponin I (0.000-0.033) ng/mL NT-Pro-B Natriuret Pep (<300) pg/mL Serum Total Protein (6.3-8.2) g/dL Albumin (3.5-5.0) g/dL Prealbumin (17.6-36.0) mg/dL Amylase (30-110) U/L Lipase (23-300) U/L Vitamin B12 824 (239-931) pg/mL Folic Acid Pending Urine Color (Yellow) Urine Appearance (Clear) Urine pH (4.6-8.0) Ur Specific Hackett (1.005-1.030) Urine Protein (Negative) Urine Glucose (UA) (Negative) mg/dL Urine Ketones (Negative) Urine Blood (Negative) Urine Nitrite (Negative) Urine Bilirubin (Negative) Urine Urobilinogen (0.2) mg/dL Ur Leukocyte Esterase (Negative) U Hyaline Cast (Auto) (0-2) /LPF Urine Microscopic RBC (0-5) /HPF Urine Microscopic WBC (0-5) /HPF Ur Epithelial Cells (None Seen) /HPF Urine Bacteria (None Seen) /HPF Urine Culture Reflexed (NO) ABO Group Rh Factor Antibody Screen (NEGATIVE) Crossmatch (COMPATIBLE) 12/17/23 12/17/23 12/17/23 Range/Units 04:43 04:43 04:43 WBC 12.9 H (3.98-10.04) x10^3/uL RBC 3.03 L (3.93-5.22) x10^6/uL Hgb 8.3 L (11.2-15.7) g/dL Hct 27.3 L (34.1-44.9) % MCV 90.1 (79.4-94.8) fL MCH 27.4 (25.6-32.2) pg MCHC 30.4 L (32.2-35.5) g/dL RDW 16.6 H (11.7-14.4) % Plt Count 420 H (182-369) x10^3/uL MPV 8.9 L (9.4-12.3) fL Gran % 77.6 H (34.0-71.1) % Immature Gran % (Auto) 1.2 H (0.001-0.429) % Nucleat RBC Rel Count 0.0 (0.00-0.2) % Eos # (Auto) 0.21 (0.04-0.36) x10^3/uL Immature Gran # (Auto) 0.16 H (0.001-0.031) x10^3u/L Absolute Lymphs (auto) 1.73 (1.18-3.74) x10^3/uL Absolute Monos (auto) 0.77 (0.24-0.86) x10^3/uL Absolute Nucleated RBC 0.00 (0.00-0.012) x10^3u/L Lymphocytes % 13.4 L (19.3-51.7) % Monocytes % 6.0 (4.7-12.5) % Eosinophils % 1.6 (0.7-5.8) % Basophils % 0.2 (0.1-1.2) % Absolute Granulocytes 10.04 H (1.56-6.13) x10^3/uL Basophils # 0.03 (0.01-0.08) x10^3/uL ESR (0-20) mm/hr D-Dimer (0.0-0.50) mg/L Sodium 137 (135-145) mmol/L Potassium 3.9 (3.5-5.1) mmol/L Chloride 102 (98-107) mmol/L Carbon Dioxide 26 (22-30) mmol/L Anion Gap 12.2 (5-15) MEQ/L BUN 15 (7-17) mg/dL Creatinine 0.82 (0.52-1.04) mg/dL Estimated GFR 85.0 ML/MIN Glucose 200 H (74-106) mg/dL POC Glucometer (74 to 106) mg/dL Hemoglobin A1c (4.5-6.0) % Lactic Acid (0.4-2.0) Calcium 8.9 (8.4-10.2) mg/dL Iron (37-170) ug/dL TIBC (265-462) ug/dL Iron Saturation (20-39) % Ferritin (11.1-264) ng/mL Total Bilirubin (0.2-1.3) mg/dL AST (14-36) U/L ALT (0-35) U/L Alkaline Phosphatase (38-126) U/L Troponin I (0.000-0.033) ng/mL NT-Pro-B Natriuret Pep 289 (<300) pg/mL Serum Total Protein (6.3-8.2) g/dL Albumin 2.9 L (3.5-5.0) g/dL Prealbumin 9.13 L (17.6-36.0) mg/dL Amylase (30-110) U/L Lipase (23-300) U/L Vitamin B12 (239-931) pg/mL Folic Acid Urine Color (Yellow) Urine Appearance (Clear) Urine pH (4.6-8.0) Ur Specific [place] (1.005-1.030) Urine Protein (Negative) Urine Glucose (UA) (Negative) mg/dL Urine Ketones (Negative) Urine Blood (Negative) Urine Nitrite (Negative) Urine Bilirubin (Negative) Urine Urobilinogen (0.2) mg/dL Ur Leukocyte Esterase (Negative) U Hyaline Cast (Auto) (0-2) /LPF Urine Microscopic RBC (0-5) /HPF Urine Microscopic WBC (0-5) /HPF Ur Epithelial Cells (None Seen) /HPF Urine Bacteria (None Seen) /HPF Urine Culture Reflexed (NO) ABO Group Rh Factor Antibody Screen (NEGATIVE) Crossmatch (COMPATIBLE) 12/17/23 12/17/23 12/17/23 Range/Units 04:43 07:26 11:24 WBC (3.98-10.04) x10^3/uL RBC (3.93-5.22) x10^6/uL Hgb (11.2-15.7) g/dL Hct (34.1-44.9) % MCV (79.4-94.8) fL MCH (25.6-32.2) pg MCHC (32.2-35.5) g/dL RDW (11.7-14.4) % Plt Count (182-369) x10^3/uL MPV (9.4-12.3) fL Gran % (34.0-71.1) % Immature Gran % (Auto) (0.001-0.429) % Nucleat RBC Rel Count (0.00-0.2) % Eos # (Auto) (0.04-0.36) x10^3/uL Immature Gran # (Auto) (0.001-0.031) x10^3u/L Absolute Lymphs (auto) (1.18-3.74) x10^3/uL Absolute Monos (auto) (0.24-0.86) x10^3/uL Absolute Nucleated RBC (0.00-0.012) x10^3u/L Lymphocytes % (19.3-51.7) % Monocytes % (4.7-12.5) % Eosinophils % (0.7-5.8) % Basophils % (0.1-1.2) % Absolute Granulocytes (1.56-6.13) x10^3/uL Basophils # (0.01-0.08) x10^3/uL ESR 51 H (0-20) mm/hr D-Dimer (0.0-0.50) mg/L Sodium (135-145) mmol/L Potassium (3.5-5.1) mmol/L Chloride (98-107) mmol/L Carbon Dioxide (22-30) mmol/L Anion Gap (5-15) MEQ/L BUN (7-17) mg/dL Creatinine (0.52-1.04) mg/dL Estimated GFR ML/MIN Glucose (74-106) mg/dL POC Glucometer 240 H 147 H (74 to 106) mg/dL Hemoglobin A1c (4.5-6.0) % Lactic Acid (0.4-2.0) Calcium (8.4-10.2) mg/dL Iron (37-170) ug/dL TIBC (265-462) ug/dL Iron Saturation (20-39) % Ferritin (11.1-264) ng/mL Total Bilirubin (0.2-1.3) mg/dL AST (14-36) U/L ALT (0-35) U/L Alkaline Phosphatase (38-126) U/L Troponin I (0.000-0.033) ng/mL NT-Pro-B Natriuret Pep (<300) pg/mL Serum Total Protein (6.3-8.2) g/dL Albumin (3.5-5.0) g/dL Prealbumin (17.6-36.0) mg/dL Amylase (30-110) U/L Lipase (23-300) U/L Vitamin B12 (239-931) pg/mL Folic Acid Urine Color (Yellow) Urine Appearance (Clear) Urine pH (4.6-8.0) Ur Specific Hackett (1.005-1.030) Urine Protein (Negative) Urine Glucose (UA) (Negative) mg/dL Urine Ketones (Negative) Urine Blood (Negative) Urine Nitrite (Negative) Urine Bilirubin (Negative) Urine Urobilinogen (0.2) mg/dL Ur Leukocyte Esterase (Negative) U Hyaline Cast (Auto) (0-2) /LPF Urine Microscopic RBC (0-5) /HPF Urine Microscopic WBC (0-5) /HPF Ur Epithelial Cells (None Seen) /HPF Urine Bacteria (None Seen) /HPF Urine Culture Reflexed (NO) ABO Group Rh Factor Antibody Screen (NEGATIVE) Crossmatch (COMPATIBLE) Radiology Exams: Radiology Procedures Category Date Time Status ABDOMEN AND PELVIS W/0 CONTRAS [CT] Stat Exams 12/16/23 18:50 Completed CHEST WITH CONTRAST [CT] Stat Exams 12/16/23 18:49 Completed ECHO W/2D AND DOPPLER [US] Routine Exams 12/17/23 10:00 Taken MRI UPPER EXT JOINT W/O CONTRA [MRI] Routine Exams 12/17/23 08:00 Completed SHOULDER Stat Exams 12/16/23 17:16 Completed Multi-Disciplinary Progress Notes: Multi-Disciplinary Progress Notes 12/17/23 14:42 Physical Therapy Note by Tangela(Bakari#[id number])Rekha PT. REFUSED P.T. EVAL THIS P.M. D/T C/O SEVERE ABD PN AROUND J TUBE AFTER MRI. WILL ATTEMPT 12/18/23. Initialized on 12/17/23 14:42 - END OF NOTE 12/17/23 12:31 Case Management Note by Sherrill Jefferson PATIENT HAS [facility]. THEY WERE NOTIFIED PATIENT HERE OBS. THEY WILL NOTIFIED AT TIME OF DC AT [phone]. THEY WILL NEED FAXED THE DC INSTRUCTIONS, DC MED LIST AND DC SUMMARY (IF AVAILABLE) TO [phone]. SPOKE WITH FABIAN AT [facility]. THEY STARTED SERVICE LAST Saturday12/13/23 AFTER PATIENT LEFT [facility] SOONER THAN EXPECTED. THEY HAVE BEEN IN CONTACT WITH PATIENT SURGEON, DR NATALIA JONES FROM [facility] ([phone]) AND SHE HAS F/U APPT 12/22. HE WAS TO CALL WITH A WOUND CONSULT FOR PATIENT. PATIENT DID HAVE A WOUND VAC AT [place], BUT IT HAD BEEN OFF FOR LAST FEW DAYS PRIOR TO DC. NO ORDERS AT THIS TIME FOR WOUND VAC. HAD BEEN DOING WET TO DRY FOR ABD WOUND. THEY HAVE ALSO BEEN IN CONTACT WITH PATIENT UROLOGIST, DR ALVARO MCRAE ([phone]) AND SHE IS TO HAVE A NEPHROSTOGRAM WITH POSSIBLE STENT AND TUBE CHANGE AT IR IN [facility] IN 12/19 AT 12 NOON. ALSO INFORMED ME THAT WITH THE PATIENT INSURANCE, THEY DO NOT PROVIDE DRESSING CHANGE SUPPLIES OR FLUSHES. IT WOUND PAY FOR WOUND VAC. Initialized on 12/17/23 12:31 - END OF NOTE
[2023-12-17] MEDS: APRESOLINE 20 MG/ML INJ IV ONE (15:59)
[2023-12-17 16:16] LABS: Folate (Folic Acid) 5.52 ng/mL (2.76 - >20)
[2023-12-17] MEDS: Glucophage 500 MG PO SCH (18:52)
[2023-12-17] MEDS: TYLENOL 325 MG PO PRN (18:52)
[2023-12-17] MEDS: Singulair 10 MG PO SCH (21:34)
[2023-12-17] MEDS ORDERED: MELOXICAM PO SCH (22:00)
[2023-12-17] MEDS ORDERED: NON-FORMULARY ITEM (Meloxicam 15 Mg [Meloxicam 15 Mg] 15 MG Tablet) PO SCH (22:00)
[2023-12-18 04:52] LABS: Hemoglobin 8.4 g/dL (11.2-15.7); Mean Cell Volume 92.7 fL (79.4-94.8); Mean Corpuscular Hemoglobin 26.8 pg (25.6-32.2); Mean Platelet Volume 9.6 fL (9.4-12.3); Platelet Count 414 x10^3/uL (182-369); Red Blood Count 3.13 x10^6/uL (3.93-5.22); Red Cell Distribution Width 17.1 % (11.7-14.4); White Blood Count 11.7 x10^3/uL (3.98-10.04)
[2023-12-18 05:07] LABS: ALBUMIN 3.1 g/dL (3.5-5.0); ANION GAP 10.2 MEQ/L (5-15); BILIRUBIN,TOTAL 0.2 mg/dL (0.2-1.3); Calcium 8.8 mg/dL (8.4-10.2); Creatinine 1 0.73 mg/dL (0.52-1.04); EST GLOMERULAR FILTRATION RATE 97.7 ML/MIN; Potassium 3.6 mmol/L (3.5-5.1)
[2023-12-18 05:15] VITALS: TEMP 97.5
[2023-12-18 07:55] VITALS: RESP 15; O2SAT 95
--- NOTE | 2023-12-18 11:18 | PCM.DS ---
Discharge Summary Date of Admission: 12/16/23 23:05 Date of Discharge: 12/18/23 Admitting Physician: UVALDO HENDERSON MD Consults: Consults on Case 12/17/23 08:26 Consult Ortho ROUTINE 12/17/23 12:21 Nutritional Consult ROUTINE Primary Care Provider: MALORIE LUX Allergies Allergies piperacillin Allergy (Verified 12/17/23 00:16) sulfamethoxazole Allergy (Verified 12/17/23 00:16) tazobactam Allergy (Verified 12/17/23 00:16) trimethoprim Allergy (Verified 12/17/23 00:16) Hospital Summary - Hospital Course Hospital Course: 12/17/23 is a 53 year old female with PMHX of migraines, sleep apnea, GERD, depression, brushite kidney stones, and gout. She most recently had a bleeding ulcer, has an abdominal wound following an exploratory laparotomy for a perforatred upper intestinal tract ulcer, recent hospitalization with obstructive uropathy (currently with a nephrostomy tube), and recent right shoulder injury. She presented to the hospital on 12/16/23 with right shoulder and chest pain. The patient has been on ciprofloxacin and flagyl, of note, since discharge. She was initially seen at [facility] then transferred to [facility] where the surgical procedure was performed. Postoperatively she was discharged to a rehab center in [place] and then recently was discharged to home. On admission and today she had complaints of shoulder pain on the right side which had been potentially attributed to movement/manipulation while hospitalized, but she denies any recent fall. In the ED, the patient was noted to have anasarca and anemia, for which transfusion was initiated. She received 2 units of PRBC and today HGB is 8.3. She is c/o LUQ pain with palpation. Discussed CT and radilogy results in detail with pt and . Ortho consulted and recommended MRI of right shoulder. She has an ECHO that is pending. Lasix started IV Q12 for anasarca. She refused thismed last night as she did not want to be up all night urinating and wanted to sleep. Discussed constipation and pt states she is not despite discussing CT results. Stool softer added daily if she is wiling to take. Constipation most likely r/t narcotic pain medication. She has an appointment to f/u with Dr. Calloway, nephrology at [facility] December 19 for nephrostomy tube exchange. CP resolved, Trop x3 negative. D- dimer 20.49, CT negative for PE. She denies CP, SOB, N/V/D. 12/18/23 Pt sitting up in chair. No other hospice willing to accept pt and she refused to go back to [facility]. Discussed with ortho and he is Ok with pt having OP IR procedure of right shoulder at [facility]. Discussed with IR at [facility] and Ortho will need to preauth procedure for it to be done early next week. She Will also f/u this Saturday for OP nephrostomy tube exchange at [facility]. She is agreeable to this plan. She is wanting pain meds and benzos at d/c. Discussed I can only provide 3 days of pain meds if her INSPECT is appropriate. Will not be writing for benzo's as the combination can cause respiratory depression. Can provide hydroxyzine for anxiety. She will need to F/u with PCP for any further needed meds. She is agreeable to d/c plan. She denies CP, SOB, N/V/D. Per INS PECT she had oxycodone filled 12/12/23 28 tabs for 7 days post surgery. She was admitted 12/16/23, she should have 2 more days of pain meds left. So 8 tabs left. Since she has an acute shoulder concern going on I will write for 3 more days of pain meds TID dosing. *This D/C plan took at least an hour of time to be completed. - Vitals & Intake/Output Vital Signs: Vital Signs Temperature 97.5 F 12/18/23 07:53 Pulse Rate 92 H 12/18/23 07:53 Respiratory Rate 15 12/18/23 07:53 Blood Pressure 137/79 12/18/23 07:53 O2 Sat by Pulse Oximetry 95 12/18/23 07:53 Intake & Output: Intake & Output 12/15/23 12/16/23 12/17/23 12/18/23 11:59 11:59 11:59 11:59 Intake Total 710 1060 Balance 710 1060 Weight 110.1 kg - Lab Result Diagrams: 12/18/23 04:40 12/18/23 04:40 Lab Results-Last 24 Hrs: Lab Results-Last 24 Hours 12/17/23 12/17/23 12/17/23 Range/Units 04:33 04:33 11:24 WBC (3.98-10.04) x10^3/uL RBC (3.93-5.22) x10^6/uL Hgb (11.2-15.7) g/dL Hct (34.1-44.9) % MCV (79.4-94.8) fL MCH (25.6-32.2) pg MCHC (32.2-35.5) g/dL RDW (11.7-14.4) % Plt Count (182-369) x10^3/uL MPV (9.4-12.3) fL Sodium (135-145) mmol/L Potassium (3.5-5.1) mmol/L Chloride (98-107) mmol/L Carbon Dioxide (22-30) mmol/L Anion Gap (5-15) MEQ/L BUN (7-17) mg/dL Creatinine (0.52-1.04) mg/dL Estimated GFR ML/MIN Glucose (74-106) mg/dL POC Glucometer 147 H (74 to 106) mg/dL Calcium (8.4-10.2) mg/dL Iron 52 (37-170) ug/dL TIBC 249 L (265-462) ug/dL Iron Saturation 21 (20-39) % Ferritin 788 H (11.1-264) ng/mL Total Bilirubin (0.2-1.3) mg/dL AST (14-36) U/L ALT (0-35) U/L Alkaline Phosphatase (38-126) U/L Serum Total Protein (6.3-8.2) g/dL Albumin (3.5-5.0) g/dL Vitamin B12 824 (239-931) pg/mL Folic Acid 5.52 (2.76 - >20) ng/mL 12/17/23 12/17/23 12/18/23 Range/Units 16:43 21:24 04:40 WBC 11.7 H (3.98-10.04) x10^3/uL RBC 3.13 L (3.93-5.22) x10^6/uL Hgb 8.4 L (11.2-15.7) g/dL Hct 29.0 L (34.1-44.9) % MCV 92.7 (79.4-94.8) fL MCH 26.8 (25.6-32.2) pg MCHC 29.0 L (32.2-35.5) g/dL RDW 17.1 H (11.7-14.4) % Plt Count 414 H (182-369) x10^3/uL MPV 9.6 (9.4-12.3) fL Sodium (135-145) mmol/L Potassium (3.5-5.1) mmol/L Chloride (98-107) mmol/L Carbon Dioxide (22-30) mmol/L Anion Gap (5-15) MEQ/L BUN (7-17) mg/dL Creatinine (0.52-1.04) mg/dL Estimated GFR ML/MIN Glucose (74-106) mg/dL POC Glucometer 164 H 153 H (74 to 106) mg/dL Calcium (8.4-10.2) mg/dL Iron (37-170) ug/dL TIBC (265-462) ug/dL Iron Saturation (20-39) % Ferritin (11.1-264) ng/mL Total Bilirubin (0.2-1.3) mg/dL AST (14-36) U/L ALT (0-35) U/L Alkaline Phosphatase (38-126) U/L Serum Total Protein (6.3-8.2) g/dL Albumin (3.5-5.0) g/dL Vitamin B12 (239-931) pg/mL Folic Acid (2.76 - >20) ng/mL 12/18/23 12/18/23 Range/Units 04:40 07:49 WBC (3.98-10.04) x10^3/uL RBC (3.93-5.22) x10^6/uL Hgb (11.2-15.7) g/dL Hct (34.1-44.9) % MCV (79.4-94.8) fL MCH (25.6-32.2) pg MCHC (32.2-35.5) g/dL RDW (11.7-14.4) % Plt Count (182-369) x10^3/uL MPV (9.4-12.3) fL Sodium 136 (135-145) mmol/L Potassium 3.6 (3.5-5.1) mmol/L Chloride 99 (98-107) mmol/L Carbon Dioxide 30 (22-30) mmol/L Anion Gap 10.2 (5-15) MEQ/L BUN 15 (7-17) mg/dL Creatinine 0.73 (0.52-1.04) mg/dL Estimated GFR 97.7 ML/MIN Glucose 136 H (74-106) mg/dL POC Glucometer 113 H (74 to 106) mg/dL Calcium 8.8 (8.4-10.2) mg/dL Iron (37-170) ug/dL TIBC (265-462) ug/dL Iron Saturation (20-39) % Ferritin (11.1-264) ng/mL Total Bilirubin 0.20 (0.2-1.3) mg/dL AST 23 (14-36) U/L ALT 19 (0-35) U/L Alkaline Phosphatase 112 (38-126) U/L Serum Total Protein 7.0 (6.3-8.2) g/dL Albumin 3.1 L (3.5-5.0) g/dL Vitamin B12 (239-931) pg/mL Folic Acid (2.76 - >20) ng/mL Micro Results-Entire Visit: Microbiology 12/16/23 17:13 Urine Culture - Final Catherized <10K NORMAL SKIN DYLLAN PROBABLE SKIN CONTAMINANT 12/16/23 17:30 Blood Culture - Preliminary Blood Accuchecks Date 12/18/23 Date 12/17/23 Date 12/17/23 Time 07:53 Time 17:16 Time 11:36 - Radiology Exams Ordered Rad Exams-Entire Visit: Radiology Procedures Category Date Time Status ABDOMEN AND PELVIS W/0 CONTRAS [CT] Stat Exams 12/16/23 18:50 Completed CHEST WITH CONTRAST [CT] Stat Exams 12/16/23 18:49 Completed ECHO W/2D AND DOPPLER [US] Routine Exams 12/17/23 10:00 Taken MRI UPPER EXT JOINT W/O CONTRA [MRI] Routine Exams 12/17/23 08:00 Completed SHOULDER Stat Exams 12/16/23 17:16 Completed - Procedures and Test Procedures and Tests throughout Hospitalization: Therapy Orders & Screens 12/16/23 23:07 Respiratory Therapy Consult ONCE Comment: Reason For Exam: 12/16/23 23:26 PT Eval & Treat ( Order) ONCE Reason for Eval:: ASSESS AMBULATORY FUNCTION AND NEEDS Diagnosis: DEBILITY EKG REPEAT IN AM Comment: 12/17/23 00:12 OT Screen per Nursing Assess ONCE Comment: Protocol Order Physician Instructions: Greater than 3 points order OT Admission Screening Reason For Exam: Triggered on Admission Diagnosis: DEBILITY Open Wound/Cellutlitis/Pressure Ulcers: Yes Acute Fx/ORIF/Change in wt bearing status: No Severe MUSCULOSKELETAL pain: Yes ADL Dysfunction: Yes Acute CVA w/Hemiparesis/Hemiplegia: No Decreased Functional Mobility/Strength: Yes Sprain/Strain: No Acute Post-op Mobility Dysfunction: No Total Points: 14 PT Screen per Nursing Assess ONCE Comment: Protocol Order Physician Instructions: Greater than 3 points order PT Admission Screenin Reason For Exam: Triggered on Admission Diagnosis: DEBILITY Open Wound/Cellutlitis/Pressure Ulcers: Yes Acute Fx/ORIF/Change in wt bearing status: No Severe MUSCULOSKELETAL pain: Yes ADL Dysfunction: Yes Acute CVA w/Hemiparesis/Hemiplegia: No Decreased Functional Mobility/Strength: Yes Sprain/Strain: No Acute Post-op Mobility Dysfunction: No Total Points: 14 RT Screen per Nursing Assess ONCE Comment: Protocol Order Physician Instructions: Greater than 3 points order RT Admission Screen Reason For Exam: Triggered on Admission Diagnosis: DEBILITY Diagnosis: DEBILITY Pneumonia: No Home O2: Yes Asthma: No CHF: Yes Home CPAP/BIPAP: Yes Home Nebs/MDI: No Total Points: 13 12/17/23 00:52 BiPap/CPAP ROUTINE Comment: Diagnosis: DEBILITY 12/17/23 01:00 Oxygen Nasal Cannula 3 lpm Comment: Diagnosis: DEBILITY 12/17/23 08:00 OT Eval and Treat ( Order) ROUTINE Comment: Physician Instructions: Reason For Exam: Diagnosis: DEBILITY 12/18/23 08:11 PT Eval & Treat ( Order) ONCE Reason for Eval:: Right partial-thickness rotator cuff tear possible shoulder abscess, active and passive range of motion daily Diagnosis: DEBILITY 12/18/23 10:50 RT Miscellaneous Order ROUTINE Comment: Physician Instructions: Reason For Exam: qualify for home O2 Diagnosis: DEBILITY Discharge Exam General Appearance: no apparent distress, alert, obese Neurologic Exam: alert, oriented x 3, cooperative, normal mood/affect, nml cerebellar function, sensation nml, No motor deficits Eye Exam: PERRL, EOMI, eyes nml inspection Ears, Nose, Throat Exam: normal ENT inspection, pharynx normal, moist mucous membranes Neck Exam: normal inspection, non-tender, supple, full range of motion Respiratory Exam: normal breath sounds, lungs clear, No respiratory distress Cardiovascular Exam: regular rate/rhythm, normal heart sounds Gastrointestinal/Abdomen Exam: soft, tenderness (LUQ), No mass Pelvic Exam: deferred Rectal Exam: deferred Back Exam: normal inspection, normal range of motion, No CVA tenderness, No vertebral tenderness Extremity Exam: normal inspection, normal range of motion, limited range of motion (right shoulder), tenderness (Right Shoulder) Skin Exam: normal color, warm, dry Wound Assessment: Skin/Wound Assessment Wound/Incision Assessment Start: 12/17/23 00:12 Text: Status: Active Freq: Q6H Protocol: Document 12/18/23 04:02 LAUREN (Rec: 12/18/23 04:03 AR [id number]) Wound/Incision Assessment Medial Abdomen Wound Assessment Shift Assessment Wound Type Incision Wound Stage Non Pressure Wound Dressing Status Changed Drainage Amount None General Appearance Unapproximated Wound Bed Greatest Portion Red (Granulation) Wound Bed Lesser Portion Pale [place] Surrounding Tissue [place] Packing Type Gauze Pads Primary Dressing Absorbant Pad Secondary Dressing foam tape Comment Dressing is clean, dry, and intact Wound Photo Photo Taken Yes Comment: placed in chart Final Diagnosis/Problem List - Final Discharge Diagnosis/Problem (1) Anemia Current Visit: Yes Status: Acute Code(s): D64.9 - ANEMIA, UNSPECIFIED (2) D-dimer, elevated Current Visit: Yes Status: Acute Code(s): R79.89 - OTHER SPECIFIED ABNORMAL FINDINGS OF BLOOD CHEMISTRY (3) Anasarca Current Visit: Yes Status: Acute Code(s): R60.1 - GENERALIZED EDEMA (4) Chest pain Current Visit: Yes Status: Resolved Code(s): R07.9 - CHEST PAIN, UNSPECIFIED (5) Leukocytosis Current Visit: Yes Status: Acute Code(s): D72.829 - ELEVATED WHITE BLOOD CELL COUNT, UNSPECIFIED (6) Shoulder subluxation, right Current Visit: Yes Status: Acute Code(s): S43.001A - UNSPECIFIED SUBLUXATION OF RIGHT SHOULDER JOINT, INIT ENCNTR (7) LUQ pain Current Visit: Yes Status: Acute Code(s): R10.12 - LEFT UPPER QUADRANT PAIN (8) Prediabetes Current Visit: Yes Status: Acute Code(s): R73.03 - PREDIABETES (9) Morbid obesity with BMI of 40.0-44.9, adult Current Visit: Yes Status: Acute Assessment & Plan: (1) Anemia Current Visit: Yes Status: Acute Assessment & Plan: - recent surgery, no active bleeding - 2 units PRBC- Hgb 8.3 today - Protonix PO - stopped Meloxicam - iron panel- reviewed 12/17 - Hgb stable8.4 Code(s): D64.9 - ANEMIA, UNSPECIFIED (2) D-dimer, elevated Current Visit: Yes Status: Acute Assessment & Plan: - D-dimer 20.49 - CTA chest: negative for PE Impression: 1. Pulmonary embolus evaluation limited by suboptimal contrast opacification and respiration artifact. No obvious central pulmonary embolus. 2. Borderline cardiomegaly with small bilateral effusions. Rule out cardiac decomposition/CHF versus fluid overload. 3. Chronic findings including atelectasis/scarring, chronic bony findings, and old granulomatous disease. - + recent surgery Code(s): R79.89 - OTHER SPECIFIED ABNORMAL FINDINGS OF BLOOD CHEMISTRY (3) Anasarca Current Visit: Yes Status: Acute Assessment & Plan: -as seen on CT - Lasix IV 40 BID - Pt refused lasix IV last night 12/17 - again refused lasix last night Code(s): R60.1 - GENERALIZED EDEMA (4) Chest pain Current Visit: Yes Status: Resolved Assessment & Plan: - CP resolved - Trop x3 negative - Echo pending - Tele - EKG reviewed Code(s): R07.9 - CHEST PAIN, UNSPECIFIED (5) Leukocytosis Current Visit: Yes Status: Acute Assessment & Plan: - On cipro and flagyl OP continue - No fevers noted. - UA unremarkable. - No exudate from wound. - PT Wound care and - trend WBC count. - WBC improved today 12.9 12/17 - WBC improved 11.9 - BC x2 pending will follow OP Code(s): D72.829 - ELEVATED WHITE BLOOD CELL COUNT, UNSPECIFIED (6) Shoulder subluxation, right Current Visit: Yes Status: Acute Assessment & Plan: - Ortho eval- reviewed note and agree with plan of care - MRI right shoulder Impression: 1. Limited MRI exam due to incomplete exam and motion artifact. 2. Nondisplaced acute comminuted fracture humeral head. 3. Humeral head Hill-Sachs deformity as seen with chronic shoulder dislocation. 4. Diffuse partial thickness tear supraspinatus tendon. 5. Query partial tear subscapularis tendon. Subscapularis fluid collection deep to subscapularis muscle that may or may not be related. 6. Nonvisualization long head biceps tendon and anchor. Rule out tendon rupture with musculotendinous retraction. 12/17 - No hospital would accept pt for IR drainage of Subscapularis fluid collection - Pt willing to have done OP at [facility] - Ortho to order and get pre- auth for IR procedure at [facility]. Phone number provided to arrange. Code(s): S43.001A - UNSPECIFIED SUBLUXATION OF RIGHT SHOULDER JOINT, INIT ENCNTR (7) LUQ pain Current Visit: Yes Status: Acute Assessment & Plan: - Continue pain meds - + feeding and nephrostomy tube in place - flush nephrostomy tube TID - Flush feeding tube if pt willing- refused - Abd. wound wet to dry dressing prior to arrival- will have PT eval Code(s): R10.12 - LEFT UPPER QUADRANT PAIN (8) Prediabetes Current Visit: Yes Status: Acute Assessment & Plan: - A1C 6.11 - fasting glucose this AM 240 - BMI > 35 - younger than 60 yrs old - start metformin 500mg BID per guidelines - Accuchecks ac/hs - S/S humalog Code(s): R73.03 - PREDIABETES (9) Morbid obesity with BMI of 40.0-44.9, adult Current Visit: Yes Status: Acute Assessment & Plan: - advised ADA diet and exercise - nutrition consult Code(s): E66.01 - MORBID (SEVERE) OBESITY DUE TO EXCESS CALORIES; Z68.41 - BODY MASS INDEX [BMI] 40.0-44.9, ADULT - Discharge Discharge Date: 12/18/23 Disposition: Home, Self-Care Condition: Fair Prescriptions: New Hydroxyzine HCl 25 mg [Atarax 25 mg] 25 mg PO TID PRN PRN 30 Days #90 tablet PRN Reason: Anxiety Metformin HCl 500 mg [Glucophage 500 MG] 500 mg PO BIDWM 30 Days #60 tablet Pantoprazole 20 mg [Protonix 20MG Tablet] 20 mg PO DAILY 30 Days #30 tablet Oxycodone HCl 5 mg Ir [Oxy-IR 5 MG] 10 mg PO TIDPRN PRN 3 Days #9 tablet MDD 3 PRN Reason: Pain Continue Montelukast Sodium 10 mg [Singulair 10 MG] 10 mg PO HS Ropinirole 2Mg [Requip 2Mg Tab] 4 mg PO HS Ciprofloxacin HCl [Cipro] 500 mg PO BID Insulin Glargine [Lantus Insulin] 30 unit SQ BID Metronidazole 500 mg [Flagyl 500 MG] 500 mg PO Q8H PANTOPRAZOLE 40 mg Tablet [Protonix 40MG Tablet] 40 mg PO BID Oxycodone HCl 5 mg Ir [Oxy-IR 5 MG] 10 mg PO Q6HPRN PRN PRN Reason: Pain Levothyroxine Sodium 100 Mcg [Synthroid 100 Mcg] 100 mcg PO HS Discontinued Meloxicam 15 mg [Meloxicam 15 MG] 15 mg PO HS Additional Instructions: [facility] to call you with date and time of IR procedure for shoulder and directions pre-op procedure. Per INSPECT she had oxycodone filled 12/12/23 28 tabs for 7 days post surgery. She was admitted 12/16/23, she should have 2 more days of pain meds left. So 8 tabs left. Since she has an acute shoulder concern going on I will write for 3 more days of pain meds three times a day dosing. That makes 5 days of meds. Hydroxyzine sent in for anxiety as needed. You are pre-diabetic and metformin started. Follow up with family provider as scheduled. Improving diet and exercise will help. Follow up with appointments as scheduled. Follow up with: MALORIE LUX MD [Primary Care Provider] -
[2023-12-18 11:51] VITALS: BP 139/77; PULSE 101
== END 2023-12-18 13:16 | disposition home or self-care (01) ==
LOC: ED 16:22 → MED SURG 23:05
PROVIDERS: ADMIT Internal Medicine; ATTEND Internal Medicine
DX: D64.9 Anemia, unspecified (principal); R79.89 Other specified abnormal findings of blood chemistry; R60.1 Generalized edema; R07.9 Chest pain, unspecified; D72.829 Elevated white blood cell count, unspecified; S43.001A Unspecified subluxation of right shoulder joint, initial encounter; R10.12 Left upper quadrant pain; R73.03 Prediabetes; E66.01 Morbid (severe) obesity due to excess calories; Z68.41 Body mass index [BMI] 40.0-44.9, adult; Z79.899 Other long term (current) drug therapy; Z48.815 Encounter for surgical aftercare following surgery on the digestive system
CPT/HCPCS: 36000; 36415; 36430; 71260; 73030; 73221; 74176; 80048; 80053; 81001; 82040; 82150; 82607; 82728; 82746; 82947; 83036; 83540; 83550; 83605; 83690; 83880; 84134; 84484; 85014; 85018; 85025; 85379; 85652; 86850; 86900; 86901; 86922; 87040; 87086; 93005; 93306; 94762; 96374; 96375; 96376; 99285; 99291; P9016; P9612; 85027; 93268; 99204; J1170; J1817; J1940; J2405; Q3014; A9270-GY; G0378

== ENCOUNTER 2024-03-25 21:17 | Emergency (ER) | payer BC ==
[2024-03-25 21:34] VITALS: TEMP 98.1
--- NOTE | 2024-03-25 21:55 | ERPHSYRPT ---
- History of Present Illness Time Seen by Provider: 03/25/24 21:45 Source: patient Exam Limitations: no limitations Patient Subjective Stated Complaint: R rib pain x2 weeks when patient takes a deep breath, cough, or sneeze. pt seen Dr. Lux today and got blood work. pt r eceived a call at home and stated D.dimer was elevated and to come in to ER Triage Nursing Assessment: pt ambulatory to bed by self, pt alert and oriented x3, pt c/o R sided rib pain x2 weeks when patient coughs, deep breaths, or sneeze. pt rating pain 8/10 when she does have pain, pt afebrile, dressing on abd clean, dry and intact Physician History: 53-year-old female sent to our ED by her primary care physician for a CT chest with contrast to rule out pulmonary embolus. Patient reports she has been experiencing some rib pain. Patient had outpatient labs which revealed a positive D-dimer. Patient then sent to our ED for CTA chest to rule out PE. Patient declined pain medication. No active pain. Pain occurs with deep inspiration. No active pain at rest. Patient otherwise feels well. No chest pain at this time. Significant other at bedside. They voiced no other complaints or concerns at this time. Portions of this note were created with voice recognition technology. There may be grammatical, spelling, punctuation or sound alike errors Timing/Duration: today Severity: moderate Modifying Factors: Improves With: other Associated Symptoms: denies symptoms Allergies/Adverse Reactions: piperacillin Allergy (Verified 03/25/24 21:32) sulfamethoxazole Allergy (Verified 03/25/24 21:32) tazobactam Allergy (Verified 03/25/24 21:32) trimethoprim Allergy (Verified 03/25/24 21:32) Home Medications: Ropinirole 2Mg [Requip 2Mg Tab] 4 mg PO HS 05/14/21 [History] Levothyroxine Sodium 100 Mcg [Synthroid 100 Mcg] 125 mcg PO HS 12/16/23 [History] Gabapentin 300 mg PO TID 03/25/24 [History] Insulin Degludec [Tresiba Flextouch U-100] 15 units SQ DAILY 03/25/24 [History] Hx Tetanus, Diphtheria Vaccination/Date Given: Yes Hx Influenza Vaccination/Date Given: No Hx Pneumococcal Vaccination/Date Given: No Travel Risk - International Travel Have you traveled outside of the country in past 3 weeks: No - Emerging Infectious Disease Are you exhibiting symptoms associated with any current EIDs: No Symptoms: Abdominal Pain - Review of Systems Constitutional: No Symptoms, No Fever, No Chills Eyes: No Symptoms Ears, Nose, & Throat: No Symptoms Respiratory: No Symptoms, No Cough, No Dyspnea Cardiac: No Symptoms, No Chest Pain, No Edema, No Syncope Abdominal/Gastrointestinal: No Symptoms, No Abdominal Pain, No Nausea, No Vomiting, No Diarrhea Genitourinary Symptoms: No Symptoms, No Dysuria Musculoskeletal: No Symptoms, No Back Pain, No Neck Pain Skin: No Symptoms, No Rash Neurological: No Dizziness, No Focal Weakness, No Sensory Changes Psychological: No Symptoms Endocrine: No Symptoms Hematologic/Lymphatic: No Symptoms Immunological/Allergic: No Symptoms All Other Systems: Reviewed and Negative - Past Medical History Pertinent Past Medical History: Yes Neurological History: Migraines ENT History: No Pertinent History Cardiac History: No Pertinent History Respiratory History: Sleep Apnea Endocrine Medical History: No Pertinent History GI Medical History: GERD History: Other Psycho-Social History: Depression Other Medical History: brushite kidney stones,gout, perforated ulcer - Past Surgical History Past Surgical History: Yes Neuro Surgical History: No Pertinent History Cardiac: No Pertinent History Respiratory: No Pertinent History Gastrointestinal: No Pertinent History Genitourinary: No Pertinent History, Other Musculoskeletal: No Pertinent History Female Surgical History: Tubal Ligation Other Surgical History: back surgery, kidney stone removal x 3, oopharectomy, perforated ulcer - Female History Hx Last Menstrual Period: post menopause - Social History Smoking Status: Never smoker Exposure to second hand smoke: Yes Drug Use: none Patient Lives Alone: Yes - Social Determinants of Health Will the patient participate in the screening: Yes Do you worry about a steady place to live?: No Do you have any problems with any of the following?: No known problems In the past 12 months,have you had to go without utilities?: No Transportation Issues: No Has anyone in your support network made you feel unsafe?: No Have you or anyone in your house had to go without enough: No - Nursing Vital Signs Nursing Vital Signs: Initial Vital Signs Temperature 98.1 F 03/25/24 21:33 Pulse Rate 86 03/25/24 21:33 Respiratory Rate 18 03/25/24 21:33 Blood Pressure 152/108 03/25/24 21:33 O2 Sat by Pulse Oximetry 96 03/25/24 21:33 Pain Scale Pain Intensity [Right Chest] 8 Pain Intensity 2 - Physical Exam General Appearance: no apparent distress, alert Eye Exam: PERRL/EOMI, eyes nml inspection Ears, Nose, Throat Exam: normal ENT inspection, moist mucous membranes Neck Exam: normal inspection, non-tender, supple, full range of motion Respiratory Exam: normal breath sounds, lungs clear, airway intact, No respiratory distress Cardiovascular Exam: regular rate/rhythm, normal heart sounds, normal peripheral pulses Gastrointestinal/Abdomen Exam: soft, normal bowel sounds, No tenderness, No mass Back Exam: normal inspection, normal range of motion, No CVA tenderness, No vertebral tenderness Extremity Exam: normal inspection, normal range of motion, pelvis stable Neurologic Exam: alert, oriented x 3, cooperative, normal mood/affect, nml cerebellar function, nml station & gait, sensation nml, No motor deficits Skin Exam: normal color, warm, dry, No rash Lymphatic Exam: No adenopathy SpO2 Interpretation: normal SpO2: 96 O2 Delivery: Room Air - Course Nursing assessment & vital signs reviewed: Yes - CT Exams Chest CT Interpretation: Tele-radiologist Report (Ethan nodules, lung granuloma) Ordered Tests: Active Orders 24 hr Category Date Time Status IV Insertion STAT Care 03/25/24 21:38 Active CHEST WITH CONTRAST [CT] Stat Exams 03/25/24 21:37 Completed Medication Summary Generic Name Dose Route Start Last Admin Trade Name Freq PRN Reason Stop Dose Admin Sodium Chloride 1,000 mls @ 100 mls/hr 03/25/24 21:45 03/25/24 22:33 Sodium Chloride 0.9% 1000 Ml IV 04/24/24 21:44 100 mls/hr .Q10H NAVID Administration Discontinued Medications Generic Name Dose Route Start Last Admin Trade Name Freq PRN Reason Stop Dose Admin Diphenhydramine HCl 25 mg 03/25/24 22:10 03/25/24 22:35 Diphenhydramine Hcl 50 Mg/Ml Vial IV 03/25/24 22:11 25 mg STAT ONE Administration Diphenhydramine HCl Confirm 03/25/24 22:27 Diphenhydramine Hcl 50 Mg/Ml Vial Administered 03/25/24 22:28 Dose 50 mg .ROUTE .STK-MED ONE Ketorolac Tromethamine 30 mg 03/25/24 22:16 03/25/24 22:34 Ketorolac Tromethamine 30 Mg/Ml Inj IV 03/25/24 22:17 30 mg STAT ONE Administration Ketorolac Tromethamine Confirm 03/25/24 22:27 Ketorolac Tromethamine 30 Mg/Ml Inj Administered 03/25/24 22:28 Dose 30 mg .ROUTE .STK-MED ONE - Progress Progress: improved Progress Note: 53-year-old female presents to our ED as a referral for rule out PE. Patient had positive D-dimer as an outpatient. Patient sent to our primary care doctor for CTA chest. CTA chest negative for PE. However lung nodules observed. These lung nodules will require follow-up. This was expressed to patient. Patient understands that her lung nodule require follow-up and she agrees to follow-up with Dr. Lux regarding these lung nodules. Patient resting comfortably. No pain. Patient declined additional pain medication. Vital stable. Patient voices no other complaints or concerns at this time. Portions of this note were created with voice recognition technology. There may be grammatical, spelling, punctuation or sound alike errors Complexity of problem addressed is moderate acute complicated no critical care time. Complex of data reviewed and analyzed is moderate. Test ordered test reviewed results analyzed and correlated clinically with history and physical exam. Risk of complication and or risk of morbidity/mortality of patient management is moderate. Vital stable. Time spent to discharge patient approximately 15 minutes. Plan of care established for shared decision making. No social determinants of health present to impede follow-up. Portions of this note were created with voice recognition technology. There may be grammatical, spelling, punctuation or sound alike errors 03/26/24 01:30 Counseled pt/family regarding: lab results, diagnosis, need for follow-up, rad results - Departure Departure Disposition: Home Clinical Impression: Pleurisy, Pulmonary nodule, Lung granuloma Condition: Stable Critical Care Time: No Referrals: MALORIE LUX MD [Primary Care Provider] - Follow up/PCP as directed Additional Instructions: Pulmonary nodules observed on your chest CT scan. These observed nodules will require follow-up. Please see Dr. Lux for further evaluation Discharge/Care Plan WILLOW REGALADO was seen on 03/26/24 in the Emergency Room. The patient was counseled regarding Diagnosis,Lab results, Imaging studies, need for follow up and when to return to the Emergency Room. Prescriptions given: Discharge Note I have spoken with the patient and/or caregivers. I have explained the patient's condition, diagnosis and treatment plan based on the information available to me at this time. I have answered the patient's and/or caregiver's questions and addressed any concerns. The patient and/or caregivers have as good understanding of the patient's diagnosis, condition and treatment plan as can be expected at this point. The vital signs have been stable. The patient's condition is stable and appropriate for discharge from the emergency department. The patient will pursue further outpatient evaluation with the primary care physician or other designated or consulting physician as outlined in the discharge instructions. The patient and/or caregivers are agreeable to this plan of care and follow-up instructions have been explained in detail. The patient and/or caregivers have received these instruction. The patient/and or caregivers are aware that any significant change in condition or worsening of symptoms should prompt an immediate return to this or the closest emergency department or call 911.
[2024-03-25] MEDS ORDERED: BENADRYL 50 MG/ML ONE (22:27)
[2024-03-25] MEDS ORDERED: TORAdol 30 mg Injection ONE (22:27)
[2024-03-25] MEDS ORDERED: Sodium Chloride 0.9% 1000 ML 1,000 ML ONE (22:28)
[2024-03-25] MEDS: Sodium Chloride 0.9% 1000 ML 1,000 ML IV SCH (22:33)
[2024-03-25] MEDS: TORAdol 30 mg Injection IV ONE (22:34)
[2024-03-25] MEDS: BENADRYL 50 MG/ML IV ONE (22:35)
--- NOTE | 2024-03-26 00:39 | XRAY ---
CLINICAL HISTORY: pain, + Dimer (OP) COMPARISON: None. TECHNIQUE: Contiguous 3.[address] images of the chest were acquired with the administration of intravenous contrast. Coronal and sagittal reconstructions were obtained. One of the following dose reduction techniques were utilized for this exam: Automated exposure control, adjustment of the mA and/or kV according to patient size, and use of iterative reconstruction FINDINGS: Lungs: No evidence of consolidation, or collapse. Tiny bilateral scattered tiny pulmonary nodules, of 1-2 mm in size A calcified granuloma is identified in the the right lung middle lobe measuring 5.7 x 3.4 mm. two other tiny calcified granulomas are identified in the left lingular segment, and one in Left lower lobe measuring 2 x 2 mm. Atelectatic bands are identified in the left lung lower lobe, and few in right lower lobe No ground-glass opacities change. No pleural effusion. Pleural thickening is identified, along the right middle and lower lobe Mediastinum: No mediastinal mass or abnormal lymphadenopathy. Normal appearance of the thymus. Hilar Structures: Normal size and configuration, no enlargement. Heart and Great Vessels: Normal heart size and configuration. Mild fluid is identified in the pericardial recess. Normal caliber and course of the thoracic aorta and other great vessels. No significant atherosclerosis or aneurysm. Normal enhancement of the great vessels post-contrast. Pulmonary Arteries: No evidence of pulmonary embolism. Normal size and course of the pulmonary arteries. Esophagus: Normal course and caliber. No masses or dilatation. Bones: No fractures or lytic/sclerotic lesions. Normal bone density and alignment. No evidence of rib fractures. Chest Wall: Small benign-appearing calcification in right breast, measuring 3 mm. No masses or soft tissue abnormalities. Multiple subcentimeter axillary lymph nodes are identified. Upper Abdomen: Reduced parenchymal attenuation of liver is identified as uncovered sections representing fatty infiltration. Small area of low attenuation is identified along the spleen, This may be trace fluid in the perisplenic location. Calcified granuloma in spleen measuring 4 mm Visualized portions of the pancreas, adrenal glands, are normal. Degenerative changes are identified in the visualized spine with osteophytes. IMPRESSION: 1. No evidence of pulmonary embolism. 2. Bilateral pulmonary tiny 1-2 mm noncalcified scattered nodules. Follow-up is advised. 3. Few small bilateral pulmonary calcified granulomas 4. Mild Pleural thickening is identified, along the right middle and lower lobe. 5. Atelectatic bands are seen in both lungs lower lobe. 6. Fatty infiltration in the liver. 7. Small area of low attenuation is identified along the spleen, This may be trace fluid in the perisplenic location. Ultrasound is advised. Electronically Signed by: Yaniv Coker MD. (03/26/2024 00:35:06 EST)
[2024-03-26 01:18] VITALS: BP 118/75; PULSE 74; RESP 16
[2024-03-26 01:23] VITALS: O2SAT 96
== END 2024-03-26 01:39 | disposition home or self-care (01) ==
LOC: ED 21:17
DX: R09.1 Pleurisy (principal); J84.10 Pulmonary fibrosis, unspecified; R91.1 Solitary pulmonary nodule; R79.1 Abnormal coagulation profile; Z79.899 Other long term (current) drug therapy
CPT/HCPCS: 36000; 71260; 96374; 99284; 99285; J1200; J1885

== ENCOUNTER 2024-04-21 06:07 | Day surgery (SDC) | payer BC ==
[2024-04-21 06:53] VITALS: RESP 20
[2024-04-21 07:17] LABS: Absolute Neutrophil Ct (ANC) 4.26 x10^3/uL (1.56-6.13); BASOPHIL % 0.3 % (0.1-1.2); Basophil (Absolute #) 0.02 x10^3/uL (0.01-0.08); Eosinophil % 3.4 % (0.7-5.8); Eosinophil (Absolute #) 0.22 x10^3/uL (0.04-0.36); Hematocrit 39.8 % (34.1-44.9); Hemoglobin 12.2 g/dL (11.2-15.7); IMMATURE GRAN # 0.03 x10^3u/L (0.001-0.031); IMMATURE GRAN % 0.5 % (0.001-0.429); Lymphocyte (Absolute #) 1.47 x10^3/uL (1.18-3.74); Lymphocytes % 22.7 % (19.3-51.7); Mean Cell Volume 87.5 fL (79.4-94.8); Mean Corpuscular Hemoglobin 26.8 pg (25.6-32.2); Mean Corpuscular Hgb Concent. 30.7 g/dL (32.2-35.5); Mean Platelet Volume 9.7 fL (9.4-12.3); Monocyte (Absolute #) 0.49 x10^3/uL (0.24-0.86); Monocytes % 7.6 % (4.7-12.5); Neutrophil % 65.5 % (34.0-71.1); Platelet Count 240 x10^3/uL (182-369); Red Blood Count 4.55 x10^6/uL (3.93-5.22); Red Cell Distribution Width 16.9 % (11.7-14.4); White Blood Count 6.5 x10^3/uL (3.98-10.04)
[2024-04-21 07:31] LABS: Calcium 9.5 mg/dL (8.4-10.2); Creatinine 1 0.8 mg/dL (0.52-1.04); EST GLOMERULAR FILTRATION RATE 87.5 ML/MIN; Potassium 3.7 mmol/L (3.5-5.1)
[2024-04-21] MEDS ORDERED: DIPRIVAN 200 MG/20 ML IV ONE ×2 (08:02→08:18)
[2024-04-21 09:07] VITALS: TEMP 98; O2SAT 97
[2024-04-21 09:18] VITALS: BP 124/90; PULSE 84
--- NOTE | 2024-04-22 11:59 | OP ---
SURGERY DATE/TIME: 04/21/2024 [id number] PREOPERATIVE DIAGNOSIS: History of gastric perforation, gastric ulcer. POSTOPERATIVE DIAGNOSIS: Mild gastritis and retained gastric stents. PROCEDURE: Esophagogastroduodenoscopy with cold forceps biopsy of the gastric antrum. SURGEON: Ahsan Smith MD. MEDICATION: Given by the anesthesia department. INDICATIONS: The patient is a 53-year-old white female who apparently 6 months ago had a very significant life event and having had what she describes as a gastric perforation. She became septic and apparently had a shoulder infection that was involved with this entire scenario. She also had a feeding tube placed for approximately 3 weeks. The patient now is 6 months past that time and is desirous of having her stomach looked at to be sure that everything seems to be healed up. The patient described risks of the procedure including the risk of perforation, phlebitis, untoward reaction to medication, bleeding, and missed lesions. The patient verbalized understanding and desired to have the procedure performed. DESCRIPTION OF PROCEDURE AND FINDINGS: The patient was given medication by the anesthesia department. She had continuous pulse oximetry, ECG monitoring, and intermittent blood pressure monitoring during the examination. She was placed in left lateral decubitus position. A bite block was placed. A flexible Olympus gastroscope was used to intubate the oropharynx. A view of the larynx was obtained and was normal. Scope was easily introduced in the esophagus which appeared to be normal throughout its length. The stomach was entered where gastric stents were still present. The stomach was insufflated with nice dilation of the stomach with insufflation of air. The scope was passed along the greater curvature of the stomach to the antrum. Pylorus was encountered, intubated. Duodenum was inspected and found to be normal. Scope was withdrawn toward the stomach. Again, retroflexed view was obtained of lesser curvature, cardia, and fundus regions of the stomach and these appeared to be essentially normal other than the presence of the gastric stent. The scope was then directed toward the gastric antrum where biopsies were obtained to rule out the presence of Helicobacter pylori-type organisms. No scarring nor other unusual findings were found in the stomach at this time. The scope was removed from the patient who tolerated the procedure well and was sent back to outpatient recovery in good condition.
== END 2024-04-21 09:20 | disposition home or self-care (01) ==
LOC: SDC 06:07
PROVIDERS: ATTEND Family Medicine
DX: K29.70 Gastritis, unspecified, without bleeding (principal); K25.9 Gastric ulcer, unspecified as acute or chronic, without hemorrhage or perforation; Z87.19 Personal history of other diseases of the digestive system; E11.9 Type 2 diabetes mellitus without complications
CPT/HCPCS: 36415; 80048; 82947; 85025; J2704